=== PATIENT | female | born 1955 | race Caucasian/White ===

== ENCOUNTER → 2018-02-10 15:15 | Outpatient (CLI) | payer OTHER, SELFPAY ==
[2018-02-10 09:38] LABS: Absolute Lymphocyte Count 1.46 X10^3/ul (0.83-4.51); Absolute Neutrophil Count 3.7 X10^3/uL (2.0-7.7); Basophil# 0.01 X10^3/uL; Basophil% 0.2 % (0-1); Eosinophil# 0.08 X10^3/uL; Eosinophils% 1.3 % (0-5); Hematocrit 44.7 % (37-47); Hemoglobin 15.6 g/dl (12.0-15.0); Lymphocyte # 1.46 X10^3/ul (4.0); Lymphocyte % 24.5 % (19-41); Mean Corp Hgb Conc 34.9 g/gl (32-36); Mean Corpuscular Hgb 35.9 pg (27.0-32.0); Mean Corpuscular Volume 102.8 fL (81-99); Monocyte# 0.68 X10^3/uL; Monocyte% 11.4 % (0-10); Neutrophil # 3.72 X10^3/uL (2.7-7.7); Neutrophil % 62.4 % (47-70); Platelet Count 210 K/mm3 (150-450); RBC Distribution Width CV 12.2 % (11.6-14.6); Red Blood Count 4.35 M/mm3 (4.2-5.4)
[2018-02-10 09:41] LABS: POSITIVE COUNT NO; POSITIVE DIFFERENTIAL NO; POSITIVE MORPHOLOGY NO
--- NOTE | 2018-02-10 15:20 | CT_ITS ---
STUDY: CT ABDOMEN AND PELVIS WITH CONTRAST REASON FOR EXAM: Female, 62 years old. Left upper quadrant pain and left flank pain x5 RADIATION DOSAGE (If Supplied By Facility): CTDIvol = ( 14.71 ) mGy, DLP = ( 979.11 ) mGycm TECHNIQUE: Transaxial images were obtained from the dome of the diaphragm to the symphysis pubis without oral contrast. 100 ml of Isovue 300 contrast was administered. Sagittal and coronal images were reconstructed. Individualized dose optimization techniques were used for this CT. COMPARISON: March 11, 2017 FINDINGS: The visualized lung bases are unremarkable. The visualized portions of the heart are within normal limits. Calcific coronary artery disease. Normal liver. Normal gallbladder and extrahepatic biliary system. Multiple calcified granulomas. Normal pancreas. Right adrenal is normal. There is a 2.8 cm left adrenal mass which appears unchanged in size and configuration. It is hypodense centrally. Normal right kidney. Possible nonobstructing nephroliths on the left. Normal visualized stomach. Normal small intestine. Normal colon. The appendix is visualized and appears normal. Normal abdominal aorta except for fusiform ectasia from 1.6 cm to 2.4 in the infrarenal segment.. Normal inferior vena cava. Normal retroperitoneum. Normal urinary bladder. Normal abdominal wall. Normal osseous structures. IMPRESSION: Punctate nonobstructing nephroliths on the left. Borderline infrarenal aortic aneurysmal dilatation by strict definition but less than 3 cm. Recommend follow-up in 3 years. Stable left adrenal mass. Recommend follow-up adrenal CT protocol or MRI nonemergent. Electronically Signed: Danish Dodson MD at 16:25 EDT , Service support , CT/Abdomen/Pelvis WITH Contrast
[2018-02-10 15:36] LABS: CREATININE FINGERSTICK 0.8 mg/dL (0.55-1.02)
== END ==
PROVIDERS: Family Provider Family Medicine; PCP Family Medicine; Visit Provider Family Medicine
DX: R10.9 Unspecified abdominal pain (principal)
CPT/HCPCS: 36415; 74177; 85025; Q9967

== ENCOUNTER → 2018-02-16 08:45 | Outpatient (CLI) | payer OTHER, SELFPAY ==
--- NOTE | 2018-02-16 08:47 | RAD_ITS ---
STUDY: X-RAY - THORACIC SPINE REASON FOR EXAM: Female, 62 years old. Mid and low back pain TECHNIQUE: 4 view(s) of the thoracic spine were obtained. COMPARISON: None. FINDINGS: Normal kyphosis of the thoracic spine. There is no substantial scoliosis. There is multilevel endplate spondylosis of the thoracic vertebrae. There is multilevel disc space narrowing of the thoracic spine. Peripheral calcifications in the thoracic aorta without aneurysm RAD/Thoracic Spine 3 Views IMPRESSION: Multilevel degenerative changes, no acute findings Electronically Signed: Branden Willoughby MD at 9:31 EDT , Service support ,
== END ==
PROVIDERS: Family Provider Family Medicine; PCP Family Medicine; Visit Provider Family Medicine
DX: R10.9 Unspecified abdominal pain (principal)
CPT/HCPCS: 72072

== ENCOUNTER → 2018-03-05 16:55 | Outpatient (CLI) | payer OTHER, SELFPAY ==
--- NOTE | 2018-03-05 16:59 | CT_ITS ---
STUDY: CT ABDOMEN WITHOUT CONTRAST REASON FOR EXAM: Female, 62 years old. Possible thickening of the gastric wall. RADIATION DOSAGE (If Supplied By Facility): CTDIvol = ( 14.82 ) mGy, DLP = ( 457.90 ) mGycm TECHNIQUE: Transaxial images were obtained without intravenous contrast, and with oral contrast. Sagittal and coronal images were reconstructed. Individualized dose optimization techniques were used for this CT. COMPARISON: Comparison is made with prior study dated February 10, 2018. FINDINGS: The visualized lung bases are unremarkable. Coronary artery calcification. Normal liver. Normal gallbladder and extrahepatic biliary system. There are multiple benign calcified granulomata of the spleen. Normal pancreas. There is a small, circumscribed, smooth, low attenuation left adrenal mass, consistent with an adrenal adenoma. This measures 2.8 cm. Normal right adrenal gland. Normal right kidney. Small nonobstructive left intrarenal calculi. Normal visualized stomach. Normal small intestine. Normal colon. The appendix is visualized and appears normal. There is diffuse atherosclerotic calcification of the abdominal aorta. Stable mild dilatation of the infrarenal abdominal aorta with a transverse dimension of 2.4 cm. Normal inferior vena cava. There is borderline retroperitoneal lymphadenopathy with enlarged nodes no greater than 10mm in the short axis diameter. Normal abdominal wall. Normal osseous structures. CT/Abdomen WITH ORAL Cont Only IMPRESSION: No acute abnormality is seen. Electronically Signed: Omega Prather MD at 14:05 EDT Tel [phone], Service support ,
== END ==
PROVIDERS: Family Provider Family Medicine; PCP Family Medicine; Visit Provider Family Medicine
DX: R10.9 Unspecified abdominal pain (principal)
CPT/HCPCS: 74150

== ENCOUNTER → 2018-04-15 12:10 | Outpatient (CLI) | payer OTHER, SELFPAY | PROVIDERS: Family Provider Family Medicine; PCP Family Medicine; Visit Provider Family Medicine | DX: Z12.31 Encounter for screening mammogram for malignant neoplasm of breast (principal) | CPT/HCPCS: 77063; 77067 ==

== ENCOUNTER → 2019-02-10 | Outpatient (CLI) | payer MEDICARE, BC, SELFPAY ==
[2019-02-10 10:03] LABS: Absolute Lymphocyte Count 1.38 X10^3/ul (0.83-4.51); Absolute Neutrophil Count 2.2 X10^3/uL (2.0-7.7); Basophil# 0.01 X10^3/uL; Basophil% 0.2 % (0-1); Eosinophil# 0.09 X10^3/uL; Eosinophils% 2.2 % (0-5); Hematocrit 43.7 % (37-47); Hemoglobin 15.4 g/dl (12.0-15.0); Lymphocyte # 1.38 X10^3/ul (4.0); Lymphocyte % 33.3 % (19-41); Mean Corp Hgb Conc 35.2 g/gl (32-36); Mean Corpuscular Hgb 35.8 pg (27.0-32.0); Mean Corpuscular Volume 101.6 fL (81-99); Mean Platelet Vol. 10.3 fl (6.2-12.0); Monocyte# 0.52 X10^3/uL; Monocyte% 12.5 % (0-10); Neutrophil # 2.15 X10^3/uL (2.7-7.7); Neutrophil % 51.8 % (47-70); POSITIVE COUNT NO; POSITIVE DIFFERENTIAL NO; POSITIVE MORPHOLOGY NO; Platelet Count 203 K/mm3 (150-450); RBC Distribution Width CV 12.1 % (11.6-14.6); RBC Distribution Width SD 44.7 fl (35.1-43.9); White Blood Count 4.2 K/mm3 (4.4-11.0)
[2019-02-10 10:26] LABS: Anion Gap 9 (5-15); BUN 8 mg/dL (7-18); BUN/Creat Ratio 12.3 RATIO (10-20); Calcium,Total 9.1 mg/dL (8.5-10.1); Chloride 97 mmol/L (98-107); Cholesterol 196 mg/dL (200); Creatinine, Serum 0.65 mg/dL (0.55-1.02); EST Glomerular Filtration Rate 97 mL/min (>60); Est Glom Filt Rate - Afr Amer 117 mL/min (>60); Glucose 91 mg/dL (74-106); High Density Lipoprotein 58 mg/dL; Potassium 4.1 mmol/L (3.5-5.1); Sodium Level 135 mmol/L (136-145); Triglycerides 118 mg/dL; Very Low Density Lipoprotein 24 mg/dL (5-40)
== END | disposition home or self-care (01) ==
LOC: MFPLAB 08:26
PROVIDERS: Family Provider Family Medicine; PCP Family Medicine; Referring Provider Family Medicine; Visit Provider Family Medicine
DX: E78.00 Pure hypercholesterolemia, unspecified (principal); I10 Essential (primary) hypertension; J45.909 Unspecified asthma, uncomplicated
CPT/HCPCS: 36415; 80048; 80061; 85025

== ENCOUNTER → 2019-04-19 | Outpatient (CLI) | payer MEDICARE, BC, SELFPAY ==
--- NOTE | 2019-04-19 10:36 | BI_ITS ---
MAMMOGRAPHY - BILATERAL SCREENING 3-D TOMOSYNTHESIS REASON FOR EXAM: Female, 63 years old. Bilateral Screening 3-D tomosynthesis PERTINENT HISTORY: Paternal aunt with breast cancer.. TECHNIQUE: 2-D mammograms and 3-D Tomosynthesis of the breast (s) were performed. CAD was performed. COMPARISON: 04/15/2019, 04/17/2017, 04/15/2016 FINDINGS: The breast composition is composed of scattered fibroglandular density. Scattered benign calcifications are seen. No dense spiculated masses or suspicious microcalcifications are identified. No architectural distortion is identified. There is no skin thickening or retraction. There has been no significant change since the prior study. BI/SCREEN MAMM (CAD) W/MELISSA BILAT IMPRESSION: No mammographic signs of malignancy. Routine yearly mammograms recommended. ASSESSMENT CATEGORY: BIRADS Category 2: Benign. A letter regarding these results will be sent to the patient by the facility within 30 days. FOLLOW UP RECOMMENDATION: Yearly follow up mammogram recommended. (A) Approximately 10% of breast cancers are not detected by mammography. A normal mammogram should not delay biopsy of a clinically suspicious abnormality. Electronically Signed: Fabien Connolly MD at 19:09 EDT Tel [phone], Service support ,
== END | disposition home or self-care (01) ==
LOC: OPBI 10:34
PROVIDERS: Family Provider Family Medicine; PCP Family Medicine; Referring Provider Family Medicine; Visit Provider Family Medicine
DX: Z12.31 Encounter for screening mammogram for malignant neoplasm of breast (principal)
CPT/HCPCS: 77063; 77067

== ENCOUNTER → 2020-02-21 07:18 | Outpatient (CLI) | payer MEDICARE, BC, SELFPAY ==
[2020-02-21 09:43] LABS: Absolute Lymphocyte Count 1.92 X10^3/uL (0.83-4.51); Absolute Neutrophil Count 1.9 X10^3/uL (2.0-7.7); Basophil# 0.03 X10^3/uL; Basophil% 0.7 % (0-1); Eosinophil# 0.08 X10^3/uL; Eosinophils% 1.8 % (0-5); Hematocrit 45.8 % (37-47); Hemoglobin 15.7 g/dL (12.0-15.0); Lymphocyte # 1.92 X10^3/ul (4.0); Lymphocyte % 43.7 % (19-41); Mean Corp Hgb Conc 34.3 g/dL (32-36); Mean Corpuscular Hgb 36.4 pg (27.0-32.0); Mean Corpuscular Volume 106.3 fL (81-99); Mean Platelet Vol. 10.4 fl (6.2-12.0); Monocyte# 0.46 X10^3/uL; Monocyte% 10.5 % (0-10); NRBC Flagged by Analyzer 0 % (0-5); Neutrophil % 43.3 % (47-70); Platelet Count 196 K/mm3 (150-450); RBC Distribution Width CV 12.5 % (11.6-14.6); RBC Distribution Width SD 49.3 fl (35.1-43.9); Red Blood Count 4.31 M/mm3 (4.2-5.4); White Blood Count 4.4 K/mm3 (4.4-11.0)
[2020-02-21 10:12] LABS: ALB/GLOB Ratio 0.9 RATIO (0.9-2.4); AST(SGOT) 60 U/L (15-37); Alanine Aminotransfer ALT/SGPT 44 U/L (13-56); Albumin, Serum 3.6 g/dL (3.2-5.0); Alkaline Phosphatase 114 U/L (45-117); Anion Gap 8 (5-15); BUN 8 mg/dL (7-18); BUN/Creat Ratio 10.2 RATIO (10-20); Calcium,Total 8.8 mg/dL (8.5-10.1); Chloride 97 mmol/L (98-107); Cholesterol 203 mg/dL (200); Creatinine, Serum 0.78 mg/dL (0.55-1.02); EST Glomerular Filtration Rate 78 mL/min (>60); Est Glom Filt Rate - Afr Amer 95 mL/min (>60); Globulin 4.2 g/dL (2.2-4.2); Glucose 94 mg/dL (74-106); High Density Lipoprotein 63 mg/dL; Potassium 3.9 mmol/L (3.5-5.1); Protein, Total 7.8 g/dL (6.4-8.2); Sodium Level 134 mmol/L (136-145); Triglycerides 123 mg/dL; Very Low Density Lipoprotein 25 mg/dL (5-40)
== END ==
PROVIDERS: PCP Family Medicine; Referring Provider Family Medicine; Visit Provider Family Medicine
DX: I10 Essential (primary) hypertension (principal); E78.00 Pure hypercholesterolemia, unspecified
CPT/HCPCS: 36415; 80053; 80061; 85025

== ENCOUNTER 2020-03-04 09:55 | Observation (INO) | payer MEDICARE, BC, SELFPAY ==
[2020-03-04] VITALS (11 sets, daily range): BP systolic 135–205; BP diastolic 64–152; PULSE 50–99; RESP 14–16; TEMP 36.6–37.1; O2SAT 98–100; BMI 26.6; BMI 26.9
--- NOTE | 2020-03-04 10:11 | EKG12_ITS ---
Test Reason : AB PAIN Blood Pressure : / mmHG Vent. Rate : 078 BPM Atrial Rate : 078 BPM P-R Int : 164 ms QRS Dur : 074 ms QT Int : 396 ms P-R-T Axes : 058 019 053 degrees QTc Int : 451 ms Normal sinus rhythm Normal ECG Confirmed by SULY VALENTINE ([id number]), order editor TRESA MAY ([id number]) on 03/06/2020 2:07:07 PM Referred By: RADHA Confirmed By:SULY VALENTINE
--- NOTE | 2020-03-04 10:11 | CT_ITS ---
STUDY: CT ABDOMEN AND PELVIS WITH CONTRAST REASON FOR EXAM: Female, 64 years old. ABD PAIN RADIATION DOSAGE (If Supplied By Facility): CTDIvol = ( 14.70 ) mGy, DLP = ( 831.35 ) mGycm TECHNIQUE: Transaxial images were obtained from the dome of the diaphragm to the symphysis pubis without oral contrast. IV 100mL Isovue-370 was administered. Sagittal and coronal images were reconstructed. Individualized dose optimization techniques were used for this CT. COMPARISON: March 05, 2018 FINDINGS: There is a 0.3 cm left lower lung nodule. The visualized portions of the heart are within normal limits. Normal liver. Normal gallbladder and extrahepatic biliary system. There are multiple benign calcified granulomata of the spleen. Normal pancreas. There is a small, circumscribed, smooth, low attenuation left adrenal mass, consistent with an adrenal adenoma. Normal right adrenal gland. Normal right kidney. There is a 1.3 cm cyst over the left kidney. Normal visualized stomach. Normal small intestine. Normal colon. There is non-visualization of the appendix. There is diffuse atherosclerotic calcification of the abdominal aorta with elongation and tortuosity, but without a demonstrated aneurysm. Normal inferior vena cava. Normal retroperitoneum. Normal urinary bladder. There is absence of the uterus consistent with a prior hysterectomy. There is no free fluid in the abdomen or pelvis. Normal abdominal wall. Mild degenerative change of the lumbar spine. CT/Abdomen/Pelvis W IV Cont ONLY IMPRESSION: No acute abnormality. Postoperative change. No obstruction. Electronically Signed: Lucas Sellers MD at 12:03 EDT , Service support ,
--- NOTE | 2020-03-04 10:15 | ED.VIS.GEN ---
History of Present Illness Chief Complaint: Abd Pain Informant: Patient Narrative: 64-year-old female with past medical history of hypertension presents with concern for abdominal pain. States it began approximately 4 days ago. Describes it as left-sided and radiating around into her back. States it is aching in nature. Intermittent. Does admit to some nausea and vomiting. Bit to some constipation. Denies any diarrhea. Denies any urinary symptoms. Denies any vaginal bleeding or discharge. Patient has a history of complete hysterectomy. Past Medical History - Allergies and Home Meds Allergies/Adverse Reactions: Allergies erythromycin base Allergy (Verified 03/04/20 09:56) PT UNSURE OF REACTION Primary Care Physician: Ernie Molina MD [Primary Care Provider] - Past Medical History: - - HTN Surgical History: hysterectomy Lives: Spouse/ Significant Other Smoking Status: Current every day smoker Alcohol: None Drugs: None Review of Systems General: Denies: Chills, Fever, Sweats Eyes: Denies: Visual changes - bilaterally, Diplopia ENT: Denies: Rhinorrhea, Sore throat Cardiovascular: Denies: Chest pain, Palpitations Respiratory: Denies: Dyspnea, Cough, Dyspnea on exertion Gastrointestinal: Reports: Abdominal pain, Nausea, Vomiting. Denies: Diarrhea, Melena, Hematochezia Genitourinary: Denies: Dysuria, Hematuria, Frequency Musculoskeletal: Denies: Back pain, Extremity Pain Skin: Denies: Rash, Wounds Neurological: Denies: Headache, Weakness, Numbness Physical Exam Vital Signs/Narrative: Vital Signs Temp Pulse Resp BP Pulse Ox 03/04/20 09:57 97.8 F 50 L 16 205/152 H 98 Inital Vital Signs reviewed: Yes General: Well nourished, Well developed, No Acute Distress Head: Normocephalic, Atraumatic Eyes: Perrl, EOMI ENT: Moist mucous membranes, No rhinorrhea Neck: Supple, Nontender Cardiovascular: Regular rate, Regular rhythm, No murmurs Respiratory: No distress, CTA bilaterally, Chest nontender Abdomen: Soft, Nontender, Nondistended, Normal bowel sounds Back: Nontender, Normal Inspection Extremities: Nontender, No edema Skin: Normal color, No rash Neurological: Alert, Oriented x3, Cranial nerves II-XII grossly intact, Normal Strength, Normal Sensation Psychological: Normal affect, Normal Mood Diagnostic/Tx/Re-eval - Rhythm Strip Rhythm Strip: Sinus Rhythm Rate: 78 Ectopy: None - EKG Initial EKG Interpretation: Sinus Rhythm - Sinus rhythm at 78 bpm. DC interval 164 ms. QTC of 451 ms. No evidence of ST elevation or depression at this time. - Medical Decision Making Patient in mild to moderate pain upon arrival described as her left flank and to her left upper abdomen. Blood pressure significantly elevated with a systolic blood pressure well above 200. EKG nonischemic. Troponin negative. Lactate negative. Patient does have a hyponatremia which is likely multifactorial including hypovolemia as well as starting hydrochlorothiazide within the past month. Her blood pressure is reduced after fluid resuscitation as well as pain control with morphine. No evidence of vascular abnormality. Patient does have occult blood in her urine. She states that her mother did have renal cell cancer in her 60s or [address]. CT shows no acute mass but there is evidence of a renal cyst. Patient was due to have ultrasound of her kidneys given her uncontrolled hypertension this week. Spoke with Dr. Correa who is agreeable with admission given her uncontrolled blood pressure as well as for natremia. Patient also agreeable and admitted in stable condition. ED Disposition - Plan for ED Patient: Disposition: [facility] Diagnosis: Hyponatremia, Volume depletion, Uncontrolled hypertension, Hematuria, Abdominal pain Referrals: Ernie Molina MD [Primary Care Provider] -
[2020-03-04 10:29] LABS: Color, Urine Yellow (Yellow); Glucose, Dipstick Normal (Normal); Ketone-Dipstick Negative (Negative); Leukocyte Esterase-Dipstick 25 /ul (Negative); Mucous, Urine 0 SEEN /hpf (<or=2+); Nitrite-Dipstick Negative (Negative); Occult Blood-Urine 50 /ul (Negative); Protein-Dipstick Negative (Negative); Urine Bilirubin Dipstick Negative (Negative); Urine Clarity Clear (Clear); Urine Urobilinogen Normal (Normal)
[2020-03-04] MEDS: 0.9% Normal Saline 1,000 ML 1000 ML IV (10:34)
[2020-03-04] MEDS: Morphine 4 MG/ML Syringe IV (10:34)
[2020-03-04] MEDS: Ondansetron 4 MG/2 ML Vial IV (10:34)
[2020-03-04 10:35] LABS: Bacteria 2+ /hpf (None Seen); Red Blood Cells-Urine 0-5 SEEN /hpf (0-5); Squamous Epithelial Cells - UA 5-10 SEEN /hpf (5-10); White Blood Cells 0-5 SEEN /hpf (0-5)
[2020-03-04 10:51] LABS: Absolute Lymphocyte Count 1.32 X10^3/uL (0.83-4.51); Absolute Neutrophil Count 2.3 X10^3/uL (2.0-7.7); Basophil# 0.01 X10^3/uL; Basophil% 0.2 % (0-1); Eosinophil# 0.03 X10^3/uL; Eosinophils% 0.7 % (0-5); Hematocrit 45.7 % (37-47); Hemoglobin 16.5 g/dL (12.0-15.0); Lymphocyte # 1.32 X10^3/ul (4.0); Lymphocyte % 31.4 % (19-41); Mean Corp Hgb Conc 36.1 g/dL (32-36); Mean Corpuscular Hgb 35.9 pg (27.0-32.0); Mean Corpuscular Volume 99.6 fL (81-99); Mean Platelet Vol. 10.3 fl (6.2-12.0); Monocyte# 0.49 X10^3/uL; Monocyte% 11.7 % (0-10); NRBC Flagged by Analyzer 0 % (0-5); Neutrophil # 2.33 X10^3/uL (2.7-7.7); Neutrophil % 55.5 % (47-70); Platelet Count 217 K/mm3 (150-450); RBC Distribution Width CV 11.3 % (11.6-14.6); RBC Distribution Width SD 41.5 fl (35.1-43.9); Red Blood Count 4.59 M/mm3 (4.2-5.4); White Blood Count 4.2 K/mm3 (4.4-11.0)
[2020-03-04 11:10] LABS: ALB/GLOB Ratio 0.9 RATIO (0.9-2.4); AST(SGOT) 44 U/L (15-37); Alanine Aminotransfer ALT/SGPT 47 U/L (13-56); Albumin, Serum 4.1 g/dL (3.2-5.0); Alkaline Phosphatase 125 U/L (45-117); Anion Gap 7 (5-15); BUN 8 mg/dL (7-18); Calcium,Total 9.4 mg/dL (8.5-10.1); Chloride 86 mmol/L (98-107); Creatinine, Serum 0.88 mg/dL (0.55-1.02); EST Glomerular Filtration Rate 68 mL/min (>60); Est Glom Filt Rate - Afr Amer 82 mL/min (>60); Estimated Creatinine Clearance 56.59 ml/min; Globulin 4.5 g/dL (2.2-4.2); Glucose 127 mg/dL (74-106); Lipase 84 U/L (73-393); Potassium 3.7 mmol/L (3.5-5.1); Protein, Total 8.6 g/dL (6.4-8.2); Sodium Level 121 mmol/L (136-145)
[2020-03-04 11:15] LABS: Lactic Acid 1.6 mmol/L (0.4-1.9)
[2020-03-04] MEDS: Morphine 2 MG/ML Syringe IV (12:10)
--- NOTE | 2020-03-04 13:15 | HP.PCM_ITS ---
Problem List (1) Hypertensive urgency Status: Acute (2) Hypotonic hyponatremia Status: Acute (3) Abdominal pain Status: Acute History of Present Illness Date of Admission: 03/04/20 Chief Complaint: Abdominal pain and hypertension The patient is a 64 year old F with history of hypertension came to ER with abdominal pain and high blood pressure. She has intermittent abdominal pain for about 2 weeks mainly in epigastric and umbilical region with radiation to the back and forth, 6-7/10 intensity. Symptoms become more severe if required ER visit. Patient blood pressure is also high for last 2-week and PCP increased Altace dose from 10 mg to 20 mg 2 weeks ago which led to further increase in blood pressure therefore dose was cut back to 10 mg daily. She is also on HCTZ 25 mg daily. [] In ED, blood pressure 205/152, heart rate 74/min. No tachypnea or hypoxia. No fever. CT abdomen was done which shows no acute abnormality. No bowel obstruction. Patient had total hysterectomy with bilateral salpingo-oophorectomy. Denies GI bleed. No new lower urinary tract symptoms including burning micturition. Patient had vomiting for few days and he states vomits after 1 to 2 hours of last eating food. Patient is also constipated and has not bowel movement for last 4 to 5 days. She also has noted good appetite and not eating well. Past Medical History Allergies erythromycin base Allergy (Verified 03/04/20 09:56) PT UNSURE OF REACTION Home Medications: Ambulatory Orders Medication Instructions Recorded Hydrochlorothiazide [Hctz] 25 mg PO DAILY 03/04/20 Omeprazole [Prilosec] 20 mg PO DAILY 03/04/20 Ramipril 5 mg PO DAILY 03/04/20 Surgical History: hysterectomy Lives: Spouse/ Significant Other Smoking Status: Current every day smoker Tobacco Use: Cigarettes - Half to 1 pack daily since teenage Alcohol: None Drugs: None - *Family History Paternal History Items: - - Father had abdominal aneurysm. Grandfather had thoracic aortic aneurysm Review of Systems Constitutional: Denies: Chills, Fever, Weight Change HEENT: Denies: Head Aches, Sinus Congestion, Sinus Drainage Cardiovascular: Denies: Chest Pain, Palpitations Respiratory: Denies: Cough, Shortness of breath at rest, Sputum production Gastrointestinal: Reports: Abdominal Pain, Constipation, Nausea, Vomiting. Denies: Diarrhea, Hematemesis, Hematochezia, Melena Genitourinary: Denies: Dysuria, Frequency, Hematuria, Nocturia, Retention, Urgency Musculoskeletal: Denies: Joint Pain, Joint Tenderness Skin: Denies: Rash, Wounds Neurological: Denies: Focal weakness, Numbness, Tingling Psychiatric: Denies: Anxiety, Depression, Homicidal Ideations, Suicidal Ideations Hematologic/ Lymphatic: Denies: Easy Bruising, Easy Bleeding VTE Information - Inpt Only VTE Present on Admission: No VTE Mechan Device Prophylaxis: None VTE Pharm Prophylaxis ordered?: Yes Patient Problems: Active and Suspected Problems Hyponatremia (Acute) Volume depletion (Acute) Uncontrolled hypertension (Acute) Hematuria (Acute) Abdominal pain (Acute) Hypertensive urgency (Acute) Hypotonic hyponatremia (Acute) - Physical Exam Vitals/I&O's: Vital Signs Temp Pulse Resp BP Pulse Ox 98.7 F 80 16 162/98 H 98 03/04/20 13:13 03/04/20 13:13 03/04/20 13:13 03/04/20 13:13 03/04/20 13:13 Oxygen Delivery Method Room Air Weight: 160 lb Body Mass Index (BMI) 26.6 Intake and Output for Last 24 Hours 03/02/20 03/03/20 03/04/20 23:59 23:59 23:59 Intake Total 1000 / 1000 Balance 1000 / 1000 General: Alert, Oriented x3, Cooperative HEENT: Atraumatic, PERRLA, EOMI, Normocephalic Oral: No Gingival or Mucosal Lesions/ Ulcerations, Dry Mucosa Neck: Supple, No JVD, Negative Carotid Bruits Lungs: Clear to auscultation, Normal air movement, No rhonchi, No wheeze, No rales Cardiovascular: Regular rate, Regular Rhythm, Normal S1, Normal S2, No murmurs Abdomen: Bowel Sounds Present, Soft, Non Tender, Non-Distended Extremities: Capillary Refill Less than 3 Seconds, Edema - Mild ankle edema Skin: No rashes, No breakdown Musculoskeletal: No Tenderness to Palpation of Joints or Extremities, Arthritic Changes Neurological: Cranial nerves II-XII grossly intact, Deep Tendon Reflexes 2+/4 and Symmetrical, Neuro grossly intact Psych/Mental Status: Normal Affect, Appropriate Laboratory Results 03/04/20 10:18: Urine Color Yellow, Urine Clarity Clear, Urine pH 6.0, Ur Specific [place] 1.020, Urine Protein Negative, Urine Glucose (UA) Normal, Urine Ketones Negative, Urine Occult Blood 50 H, Urine Nitrite Negative, Urine Bilirubin Negative, Urine Urobilinogen Normal, Ur Leukocyte Esterase 25 H, Urine RBC 0-5 SEEN, Urine WBC 0-5 SEEN, Ur Squamous Epith Cells 5-10 SEEN, Urine Bacteria 2+, Urine Mucus 0 SEEN 03/04/20 10:40: WBC 4.2 L, RBC 4.59, Hgb 16.5 H, Hct 45.7, MCV 99.6 H, MCH 35.9 H, MCHC 36.1 H, RDW Std Deviation 41.5, RDW Coeff of Charley 11.3 L, Plt Count 217, MPV 10.3, Immature Gran % (Auto) 0.500, Neut % (Auto) 55.5, Lymph % (Auto) 31.4, [place] % (Auto) 11.7 H, Eos % (Auto) 0.7, Baso % (Auto) 0.2, Absolute Neuts (auto) 2.3, Absolute Lymphs (auto) 1.32, Nucleated RBC % 0 03/04/20 10:40: Sodium 121 L, Potassium 3.7, Chloride 86 L, Carbon Dioxide 28.0, Anion Gap 7, BUN 8, Creatinine 0.88, Estim Creat Clear Calc 56.59, Est GFR (MDRD) Af Amer 82, Est GFR (MDRD) Non-Af 68, BUN/Creatinine Ratio 9.0 L, Glucose 127 H, Calcium 9.4, Total Bilirubin 0.60, AST 44 H, ALT 47, Alkaline Phosphatase 125 H, Troponin I < 0.015, Total Protein 8.6 H, Albumin 4.1, Globulin 4.5 H, Albumin/Globulin Ratio 0.9, Lipase 84 03/04/20 10:45: Lactic Acid 1.6 Assessment/Plan All Active Problems Hyponatremia (Acute) Volume depletion (Acute) Uncontrolled hypertension (Acute) Hematuria (Acute) Abdominal pain (Acute) Hypertensive urgency (Acute) Hypotonic hyponatremia (Acute) The patient is a 64 year old F with history of hypertension came to ER with abdominal pain and high blood pressure in the range of hypertensive urgency. Mild nausea and vomiting. CT abdomen by and large normal. 1. Hypertensive urgency: Currently patient does not have chest pain, headache, blurry vision. Patient is given labetalol 20 mg IV in ER. Started on amlodipine 5 mg daily, Coreg 6.25 mg twice daily, hydralazine 25 mg. Altace 10 mg continued. IV labetalol 10 mg and hydralazine 10 mg IV q. 4 hourly as needed for hypertensive urgency. Hold HCTZ as patient is dehydrated. She might have renal artery stenosis as blood pressure went up after increasing the dose of Altace. She has a scheduled renal ultrasound with Doppler by PCP as an outpatient. 2D echo, TSH and fasting profile ordered. 2. Intermittent abdominal pain, nonspecific, possible gastritis: CT abdomen with IV contrast did not show abdominal aortic aneurysm but diffuse atherosclerotic calcification of abdominal aorta with elongation and tortuosity. Normal retroperitoneum and IVC. Normal small bowel and colon and stomach. Total hysterectomy plus BSO. IV Protonix 40 mg 1 dose. UA negative for pyuria, LE 25. Nitrite negative. Denies new lower tract symptoms including dysuria. 3. Hypotonic hypovolemic hyponatremia: Sodium is 121, urine is dark yellow. On IV fluid normal saline 100 mils per hour. Patient had 1 L normal saline bolus in ED. Monitor electrolytes. K3.7, K. Dur 40 M EQ 1 dose ordered. Mild hemoconcentration, hemoglobin 16.5. 4. DVT prophylaxis: Lovenox 40 mg subcu daily. Clinical Impression(s) from Imaging Studies Abdomen/Pelvis CT 03/04/20 10:11 IMPRESSION: No acute abnormality. Postoperative change. No obstruction. Inpatient E&M: 87746 Init Hosp L3
--- NOTE | 2020-03-04 14:05 | RAD_ITS ---
STUDY: X-RAY CHEST REASON FOR EXAM: Female, 64 years old. HYPERTENSION TECHNIQUE: Frontal view of the chest COMPARISON: None. FINDINGS: The lungs are clear and expanded. There is no demonstrated pleural abnormality. Normal size heart. Normal mediastinum and jace. Normal visualized pulmonary arteries. Normal visualized aortic arch and descending thoracic aorta. Normal visualized thoracic spine. Normal visualized ribs, clavicles, and shoulders. There is no demonstrated abnormality of the visualized soft tissue structures of the upper abdomen. RAD/Chest 1 View (Portable) IMPRESSION: Normal x-ray examination of the chest. Electronically Signed: Slim Pinto, at 15:20 EDT Tel , Service support ,
[2020-03-04] MEDS: 0.9% Normal Saline 1,000 ML 100 ML IV (14:38)
[2020-03-04] MEDS: Enoxaparin 40 MG/0.4 ML Syringe SC (14:44)
[2020-03-04] MEDS: proCHLORPERazine 10 MG/2 ML Vial 5 MG IV (15:16)
--- NOTE | 2020-03-04 15:22 | NURSING ---
C/O Nausea, compazine 5mg IVP given.
[2020-03-04 15:44] LABS: Magnesium 1.7 mg/dL (1.6-2.6)
[2020-03-04] MEDS: hydrALAZINE 25 MG Tablet PO (21:44)
[2020-03-04] MEDS: Carvedilol 6.25 MG Tablet PO (21:44)
[2020-03-04] MEDS: Senna/Docusate Sodium 1 Tablet 2 TABLET PO (21:44)
[2020-03-05] VITALS (8 sets, daily range): BP systolic 143–162; BP diastolic 81–89; PULSE 62–70; RESP 14–16; TEMP 36.5–36.9; O2SAT 97–98
[2020-03-05] MEDS: oxyCODONE 5 MG Tablet PO ×2 (04:25→12:06)
[2020-03-05 05:54] LABS: Absolute Lymphocyte Count 1.52 X10^3/uL (0.83-4.51); Absolute Neutrophil Count 1.9 X10^3/uL (2.0-7.7); Basophil# 0.02 X10^3/uL; Basophil% 0.5 % (0-1); Eosinophil# 0.08 X10^3/uL; Hematocrit 39.6 % (37-47); Hemoglobin 14.2 g/dL (12.0-15.0); Lymphocyte # 1.52 X10^3/ul (4.0); Lymphocyte % 37.6 % (19-41); Mean Corp Hgb Conc 35.9 g/dL (32-36); Mean Corpuscular Hgb 36.3 pg (27.0-32.0); Mean Corpuscular Volume 101.3 fL (81-99); Mean Platelet Vol. 10.4 fl (6.2-12.0); Monocyte# 0.53 X10^3/uL; Monocyte% 13.1 % (0-10); NRBC Flagged by Analyzer 0 % (0-5); Neutrophil # 1.87 X10^3/uL (2.7-7.7); Neutrophil % 46.3 % (47-70); Platelet Count 208 K/mm3 (150-450); RBC Distribution Width CV 11.4 % (11.6-14.6); RBC Distribution Width SD 42.1 fl (35.1-43.9); Red Blood Count 3.91 M/mm3 (4.2-5.4)
[2020-03-05 06:35] LABS: Anion Gap 5 (5-15); BUN 6 mg/dL (7-18); BUN/Creat Ratio 8.9 RATIO (10-20); Calcium,Total 8.6 mg/dL (8.5-10.1); Chloride 98 mmol/L (98-107); Cholesterol 202 mg/dL (200); Creatinine, Serum 0.68 mg/dL (0.55-1.02); EST Glomerular Filtration Rate 93 mL/min (>60); Est Glom Filt Rate - Afr Amer 112 mL/min (>60); Glucose 94 mg/dL (74-106); High Density Lipoprotein 56 mg/dL; Potassium 3.8 mmol/L (3.5-5.1); Sodium Level 131 mmol/L (136-145); Triglycerides 95 mg/dL; Very Low Density Lipoprotein 19 mg/dL (5-40)
[2020-03-05] MEDS: Carvedilol 6.25 MG Tablet PO (09:08)
[2020-03-05] MEDS: Psyllium 1 PACKET PO (09:08)
[2020-03-05] MEDS: hydroCHLOROthiazide 25 MG Tablet PO (09:08)
[2020-03-05] MEDS: Ramipril 5 MG Capsule PO (09:08)
[2020-03-05] MEDS: Senna/Docusate Sodium 1 Tablet 2 TABLET PO (09:08)
[2020-03-05] MEDS: Pantoprazole Sodium 40 MG Tablet PO (09:09)
[2020-03-05] MEDS: amLODIPine 5 MG Tablet PO (09:09)
--- NOTE | 2020-03-05 11:38 | DCINST_ITS ---
- Discharge Diagnoses Current Active Problems: Current Active and Chronic Problems Hyponatremia (Acute) Volume depletion (Acute) Uncontrolled hypertension (Acute) Hematuria (Acute) Abdominal pain (Acute) Hypertensive urgency (Acute) Hypotonic hyponatremia (Acute) You will use the following diet at home:: Cardiac Your food should be the consistency of: Regular Discharge Activity: Return to Normal Activity Call your doctor if you observe: Fever of 101 or Higher, Numbness or Tingling, Change in Color, Inability to urinate, Inability to have a bowel movement, Dizziness, Fainting spells, Swelling in the ankles, Chest pain, Prolonged hiccoughing, Increased palpitations (irregular heartbeat), Calf discomfort, Uncontrolled pain Additional Instructions: Advised 2D echo as an outpatient next week. Patient is already scheduled for kidney ultrasound with renal artery Doppler by PCP. Allergies/Adverse Reactions: Allergies erythromycin base Allergy (Verified 03/04/20 09:56) PT UNSURE OF REACTION Medications to take at Discharge Hydrochlorothiazide [Hctz] 25 mg PO DAILY 03/04/20 Omeprazole [Prilosec] 20 mg PO DAILY 03/04/20 Ramipril 5 mg PO DAILY 03/04/20 Atorvastatin Calcium 40 mg PO QHS #30 tab 03/05/20 Carvedilol [Coreg] 12.5 mg PO BID #60 tab 03/05/20 Psyllium [Metamucil] 1 packet PO DAILY packet 03/05/20 The following prescriptions were given: Atorvastatin Calcium 40 mg PO QHS #30 tab Transmission Status: Pending to [facility]/pharmacy #[id number] Carvedilol [Coreg] 12.5 mg PO BID #60 tab Transmission Status: Sent to [facility]/pharmacy #[id number] Primary Care Physician: Ernie Molina MD [Primary Care Provider] - Please follow up with your Primary Care Physician in: in 1-2 weeks Test Results: Test results from this visit will be discussed in further detail at your follow- up appointment, if applicable.
--- NOTE | 2020-03-05 11:40 | PCM.DC.SUM ---
Discharge Date and Diagnosis Date of Admission: 03/04/20 Date of Discharge: 03/05/20 - Primary Discharge Diagnosis Acute Problems: Active Problems Hyponatremia (Acute) Volume depletion (Acute) Uncontrolled hypertension (Acute) Hematuria (Acute) Abdominal pain (Acute) Hypertensive urgency (Acute) Hypotonic hyponatremia (Acute) Hospital Course and Treatment Summary of Care Provided: [] The patient is a 64 year old F with history of hypertension came to ER with abdominal pain and high blood pressure in the range of hypertensive urgency. Mild nausea and vomiting. CT abdomen by and large normal. 1. Hypertensive urgency: Currently patient does not have chest pain, headache, blurry vision. Patient is given labetalol 20 mg IV in ER. Started on amlodipine 5 mg daily, Coreg 6.25 mg twice daily, hydralazine 25 mg. Altace 10 mg continued. IV labetalol 10 mg and hydralazine 10 mg IV q. 4 hourly as needed for hypertensive urgency. Hold HCTZ as patient is dehydrated. She might have renal artery stenosis as blood pressure went up after increasing the dose of Altace. She has a scheduled renal ultrasound with Doppler by PCP as an outpatient. Patient was advised 2D echo next week as an outpatient. TSH normal 3.0. Fasting profile shows total cholesterol 202, LDL 127. Patient agreed to take high intensity statin, atorvastatin [address] abdomen shows atherosclerotic calcification of abdominal aorta. Her questions and concerns regarding statin for myalgia, liver dysfunction, myopathy were answered and advised follow-up PCP. 2. Intermittent abdominal pain, nonspecific, possible gastritis: CT abdomen with IV contrast did not show abdominal aortic aneurysm but diffuse atherosclerotic calcification of abdominal aorta with elongation and tortuosity. No UTI. Most probably from constipation. Resolved yesterday after bowel movement. 3. Hypotonic hypovolemic hyponatremia: Sodium is 121, urine is dark yellow. On IV fluid normal saline 100 mils per hour. Patient had 1 L normal saline bolus in ED. Monitor electrolytes. K3.7, K. Dur 40 M EQ 1 dose ordered. Mild hemoconcentration, hemoglobin 16.5. Repeat sodium improved to 131. Most probably from HCTZ. 4. DVT prophylaxis: Lovenox 40 mg subcu daily. Discharge medication reconciliation done. Discharge follow-up instructions completed. Discharge process discussed with the patient and all questions were answered to patient's satisfaction. Total time spent, exact 35 minutes on discharge meds reconciliation, examination, coordination of care with nurses and ancillary staff, review of imaging and blood test and discussion with the patient on follow-up instructions Clinical Impression(s) from Imaging Studies Abdomen/Pelvis CT 03/04/20 10:11 IMPRESSION: No acute abnormality. Postoperative change. No obstruction Objective: Patient abdominal pain is resolved. Seems mainly from the constipation. Abdomen resolved after bowel movement. Blood pressure is controlled. It was systolic 130s yesterday and currently in 150s. On physical exam General: Alert, Oriented x3, Cooperative HEENT: Atraumatic, PERRLA, EOMI, Normocephalic Oral: No Gingival or Mucosal Lesions/ Ulcerations, Dry Mucosa Neck: Supple, No JVD, Negative Carotid Bruits Lungs: Clear to auscultation, Normal air movement, No rhonchi, No wheeze, No rales Cardiovascular: Regular rate, Regular Rhythm, Normal S1, Normal S2, No murmurs Abdomen: Bowel Sounds Present, Soft, Non Tender, Non-Distended Extremities: Capillary Refill Less than 3 Seconds, Edema - Mild ankle edema Skin: No rashes, No breakdown Musculoskeletal: No Tenderness to Palpation of Joints or Extremities, Arthritic Changes Neurological: Cranial nerves II-XII grossly intact, Deep Tendon Reflexes 2+/4 and Symmetrical, Neuro grossly intact Psych/Mental Status: Normal Affect, Appropriate - Physical Exam Vitals/I&O's: Vital Signs Temp Pulse Resp BP Pulse Ox 97.7 F L 65 16 162/81 H 97 03/05/20 09:00 03/05/20 11:16 03/05/20 09:00 03/05/20 09:00 03/05/20 09:00 Oxygen Delivery Method Room Air Weight: 163 lb 9.328 oz Body Mass Index (BMI) 26.9 Intake and Output for Last 24 Hours 03/03/20 03/04/20 03/05/20 23:59 23:59 23:59 Intake Total 2069 1100 / 1100 Balance 2069 1100 / 1100 Laboratory Results 03/04/20 14:10: Magnesium 1.7, Troponin I < 0.015 03/05/20 05:24: WBC 4.0 L, RBC 3.91 L, Hgb 14.2, Hct 39.6, MCV 101.3 H, MCH 36.3 H, MCHC 35.9, RDW Std Deviation 42.1, RDW Coeff of Charley 11.4 L, Plt Count 208, MPV 10.4, Immature Gran % (Auto) 0.500, Neut % (Auto) 46.3 L, Lymph % (Auto) 37.6, [place] % (Auto) 13.1 H, Eos % (Auto) 2.0, Baso % (Auto) 0.5, Absolute Neuts (auto) 1.9 L, Absolute Lymphs (auto) 1.52, Nucleated RBC % 0 03/05/20 05:24: Sodium 131 L, Potassium 3.8, Chloride 98, Carbon Dioxide 28.0, Anion Gap 5, BUN 6 L, Creatinine 0.68, Estim Creat Clear Calc 49.80, Est GFR (MDRD) Af Amer 112, Est GFR (MDRD) Non-Af 93, BUN/Creatinine Ratio 8.9 L, Glucose 94, Calcium 8.6, Triglycerides 95, Cholesterol 202 H, LDL Cholesterol 127, VLDL Cholesterol 19, HDL Cholesterol 56, TSH 3.00 Current Medications Acetaminophen (Tylenol) 650 mg PO Q6H PRN PRN PRN Reason: Pain Score 1-10/Temp > 100.7 F Al Hydroxide/Mg Hydroxide (Mylanta Ii) 30 ml PO Q6H PRN PRN PRN Reason: Gastric Burning Albuterol Sulfate (Ventolin Aerosols) 2.5 mg INHALATION Q2H PRN PRN PRN Reason: SOB/Wheezing Amlodipine Besylate (Norvasc) 5 mg PO DAILY [facility] Last Admin: 03/05/20 09:09 Dose: 5 mg Documented by: Carvedilol (Coreg) 6.25 mg PO BID [facility] Last Admin: 03/05/20 09:08 Dose: 6.25 mg Documented by: Dextrose (D50w Syringe) 0 gm IV X1 PRN; Protocol PRN Reason: Hypoglycemia Enoxaparin Sodium (Lovenox) 40 mg SC DAILY [facility] Last Admin: 03/05/20 09:08 Dose: Not Given Documented by: Glucagon () 1 mg IM .X1 PRN PRN Reason: Hypoglycemia Hydralazine HCl (Apresoline Iv) 10 mg IV Q4H PRN PRN PRN Reason: SBP more than 180 mmHg Hydralazine HCl (Apresoline) 25 mg PO TID [facility] Last Admin: 03/05/20 06:52 Dose: Not Given Documented by: Hydrochlorothiazide (Hctz) 25 mg PO DAILY [facility] Last Admin: 03/05/20 09:08 Dose: 25 mg Documented by: Labetalol HCl (Trandate) 10 mg IV Q4H PRN PRN PRN Reason: SBP>190, DBP>110 Morphine Sulfate () 2 mg IV Q3H PRN PRN PRN Reason: Pain Score 6-10/10 Nitroglycerin (Nitrostat) 0.4 mg SUBLINGUAL Q5M PRN PRN Reason: CARDIAC/CHEST PAIN Oxycodone HCl (Oxyir) 5 mg PO Q4H PRN PRN PRN Reason: Pain Score 4-5/10 Last Admin: 03/05/20 04:25 Dose: 5 mg Documented by: Pantoprazole Sodium (Protonix) 40 mg PO DAILY [facility] Last Admin: 03/05/20 09:09 Dose: 40 mg Documented by: Prochlorperazine Edisylate (Compazine Iv) 5 mg IV Q4H PRN PRN PRN Reason: Breakthrough Nausea/Vomiting Last Admin: 03/04/20 15:16 Dose: 5 mg Documented by: Psyllium Hydrophilic Mucilloid (Metamucil) 1 packet PO DAILY [facility] Last Admin: 03/05/20 09:08 Dose: 1 packet Documented by: Ramipril (Altace) 5 mg PO DAILY [facility] Last Admin: 03/05/20 09:08 Dose: 5 mg Documented by: Senna/Docusate Sodium (Senokot-S, Breonna-Colace) 2 tablet PO BID [facility] Last Admin: 03/05/20 09:08 Dose: 2 tablet Documented by: Sodium Chloride () 10 - 40 ml IV UD PRN PRN Reason: SALINE FLUSH Discharge Activity: Return to Normal Activity Call your doctor if you observe: Fever of 101 or Higher, Numbness or Tingling, Change in Color, Inability to urinate, Inability to have a bowel movement, Dizziness, Fainting spells, Swelling in the ankles, Chest pain, Prolonged hiccoughing, Increased palpitations (irregular heartbeat), Calf discomfort, Uncontrolled pain Home Medications: Medications to take at Discharge Hydrochlorothiazide [Hctz] 25 mg PO DAILY 03/04/20 Omeprazole [Prilosec] 20 mg PO DAILY 03/04/20 Ramipril 5 mg PO DAILY 03/04/20 Atorvastatin Calcium 40 mg PO QHS #30 tab 03/05/20 Carvedilol [Coreg] 12.5 mg PO BID #60 tab 03/05/20 Psyllium [Metamucil] 1 packet PO DAILY packet 03/05/20 Following Prescrptions Were Given to Patient: Atorvastatin Calcium 40 mg PO QHS #30 tab Transmission Status: Received by [id number] Carvedilol [Coreg] 12.5 mg PO BID #60 tab Transmission Status: Received by [id number] Primary Care Physician: Ernie Molina MD [Primary Care Provider] - Please follow up with your Primary Care Physician in: in 1-2 weeks Medical Necessity - Tobacco Use Smoking Status: Current every day smoker Tobacco Use: Cigarettes Meaningful Use Info Meaningful Use Diagnoses (Choose all that apply): None applicable OBSV E&M: 41126 Observation care discharge
== END 2020-03-05 11:40 | disposition home or self-care (01) ==
LOC: ED 12:49 → PCU 14:36
PROVIDERS: Admitting Provider Internal Medicine; Emergency Provider Emergency Medicine; PCP Family Medicine; Visit Provider Internal Medicine
DX: E87.1 Hypo-osmolality and hyponatremia (principal); I16.0 Hypertensive urgency; I10 Essential (primary) hypertension; Z79.899 Other long term (current) drug therapy; R11.2 Nausea with vomiting, unspecified; K59.00 Constipation, unspecified; F17.210 Nicotine dependence, cigarettes, uncomplicated; R31.9 Hematuria, unspecified; E86.0 Dehydration
CPT/HCPCS: 36415; 71045; 74177; 80048; 80053; 80061; 81001; 83605; 83690; 83735; 84443; 84484; 85025; 87086; 87088; 93005; 96361; 96365; 96372; 96375; 96376; 99218; 99251; 99283; J7030; Q9967; A4216; G0378; G0463; J2405

== ENCOUNTER 2020-03-06 17:39 | Emergency (ER) | payer MEDICARE, BC, SELFPAY ==
[2020-03-04 13:59] VITALS: BMI 26.9
[2020-03-06 17:41] VITALS: BP 140/57; PULSE 69; RESP 18; TEMP 36.9; O2SAT 97; BMI 26.6
--- NOTE | 2020-03-06 18:21 | ED.VIS.GEN ---
History of Present Illness Chief Complaint: Abn Labs Informant: Patient Onset: Today Context: Sudden Onset Timing: Continuous Quality: Hyponatremia, sodium 123 Location: Not applicable Current Severity: Moderate Maximum Severity: Moderate Worsened by: Patient is on hydrochlorothiazide Relieved by: Nothing Associated Symptoms: No symptoms Narrative: Patient is a 54-year-old woman who was admitted this weekend. Sodium on March 04 was 121. Sodium on March 05 was 131. Sodium today was 123. Chloride is low as well. Patient is on a thiazide diuretic. She was not fluid restricted when she was in the hospital. TSH was obtained as an outpatient and negative. Urine osmolarity is 322. She is not concentrated suggest hypo-natremia due to SIADH. Urine sodium is nondiagnostic since she is on a thiazide diuretic. BMP was drawn to assess accuracy of blood work. Patient denies orthostatic hypotension. Patient denies hyperpigmentation. Prior similar symptoms: Yes Recent Illness/Hospitalization: Yes - Past Medical History (1) Hyponatremia Status: Acute (2) Uncontrolled hypertension Status: Acute Past Medical History - Allergies and Home Meds Allergies/Adverse Reactions: Allergies erythromycin base Allergy (Verified 03/06/20 17:41) PT UNSURE OF REACTION Primary Care Physician: Ernie Molina MD [Primary Care Provider] - Prior records reviewed: Yes Surgical History: hysterectomy Lives: Alone Smoking Status: Current every day smoker Alcohol: None Drugs: None - Family History Paternal Family History: Reports: - - Father had abdominal aneurysm. Grandfather had thoracic aortic aneurysm Review of Systems General: Denies: Chills, Fever, Malaise Eyes: Denies: Visual changes - bilaterally, Blurred Vision - bilaterally ENT: Denies: Rhinorrhea, Sore throat Cardiovascular: Denies: Chest pain, Palpitations Respiratory: Denies: Dyspnea, Cough, Dyspnea on exertion Gastrointestinal: Reports: Nausea. Denies: Abdominal pain, Vomiting, Diarrhea, Constipation, Melena, Hematochezia, -, - Musculoskeletal: Denies: Myalgias, Arthralgias Skin: Denies: Rash, Wounds Neurological: Denies: Weakness, Parasthesia, Numbness Endocrine: Denies: Polyuria, Polydipsia, Cold intolerance Hematologic: Denies: Easy bruising, Easy bleeding Physical Exam Vital Signs/Narrative: Vital Signs Temp Pulse Resp BP Pulse Ox 03/06/20 17:41 98.5 F 69 18 140/57 H 97 Inital Vital Signs reviewed: Yes General: Well nourished, Well developed, No Acute Distress Head: Normocephalic, Atraumatic Eyes: Perrl, EOMI ENT: Moist mucous membranes, No rhinorrhea Neck: Supple, Nontender Cardiovascular: Regular rate, Regular rhythm, No murmurs, Normal S1, Normal S2 Respiratory: No distress, CTA bilaterally, Chest nontender Abdomen: Soft, Nontender, Nondistended, Normal bowel sounds Back: Nontender, Normal Inspection Extremities: Nontender, No edema Skin: Normal color, No rash Neurological: Alert, Oriented x3, Cranial nerves II-XII grossly intact, Normal Strength, Normal Sensation Psychological: Normal affect, Normal Mood Diagnostic/Tx/Re-eval Laboratory Results 03/06/20 18:15 Sodium 125 L Potassium 3.9 Chloride 90 L Carbon Dioxide 28.0 Anion Gap 7 BUN 10 Creatinine 0.77 Estim Creat Clear Calc 49.80 Est GFR (MDRD) Af Amer 97 Est GFR (MDRD) Non-Af 80 BUN/Creatinine Ratio 13.1 Glucose 105 Calcium 8.9 Patient with hyponatremia and hyperchloremia due to thiazide diuretic. Patient was instructed discontinue the thiazide diuretic. There is no concern for SIADH. - Medical Decision Making Patient has a sodium of 123 and chloride of 86. She is on a thiazide diuretic and most likely the etiology of her hyponatremia and hypochloremia. BMP was assessed. If she does have a low sodium and the fact that she is asymptomatic we will discontinue the hydrochlorothiazide. ED Disposition - Plan for ED Patient: Disposition: Home or Assisted Living Diagnosis: Hyponatremia Instructions: ED Hyponatremia Referrals: Ernie Molina MD [Primary Care Provider] - 3-5 Days Additional Instructions: Discontinue hydrochlorothiazide. Follow-up with your doctor for blood pressure recheck and addition of a different medication.
[2020-03-06 18:36] LABS: Anion Gap 7 (5-15); BUN 10 mg/dL (7-18); BUN/Creat Ratio 13.1 RATIO (10-20); Calcium,Total 8.9 mg/dL (8.5-10.1); Chloride 90 mmol/L (98-107); Creatinine, Serum 0.77 mg/dL (0.55-1.02); EST Glomerular Filtration Rate 80 mL/min (>60); Est Glom Filt Rate - Afr Amer 97 mL/min (>60); Glucose 105 mg/dL (74-106); Potassium 3.9 mmol/L (3.5-5.1); Sodium Level 125 mmol/L (136-145)
== END 2020-03-06 19:13 | disposition home or self-care (01) ==
PROVIDERS: Emergency Provider Emergency Medicine; PCP Family Medicine
DX: E87.1 Hypo-osmolality and hyponatremia (principal); T50.2X5A Adverse effect of carbonic-anhydrase inhibitors, benzothiadiazides and other diuretics, initial encounter; I10 Essential (primary) hypertension; F17.200 Nicotine dependence, unspecified, uncomplicated
CPT/HCPCS: 80048

== ENCOUNTER → 2020-03-06 | Outpatient (CLI) | payer MEDICARE, BC, SELFPAY ==
[2020-03-04 13:59] VITALS: BMI 26.9
[2020-03-06 16:06] LABS: Urine Sodium 71 mmol/L (Not Establ.)
[2020-03-06 16:38] LABS: Anion Gap 9 (5-15); BUN 7 mg/dL (7-18); BUN/Creat Ratio 9.8 RATIO (10-20); Calcium,Total 9.3 mg/dL (8.5-10.1); Chloride 84 mmol/L (98-107); Creatinine, Serum 0.72 mg/dL (0.55-1.02); EST Glomerular Filtration Rate 87 mL/min (>60); Est Glom Filt Rate - Afr Amer 105 mL/min (>60); Glucose 90 mg/dL (74-106); Potassium 3.8 mmol/L (3.5-5.1); Sodium Level 123 mmol/L (136-145); Thyroid Stim Hormone (TSH) 1.18 uIU/mL (0.358-3.74)
[2020-03-06 16:40] LABS: Osmolality, Urine 322 mOsm/KG
[2020-03-06 17:34] LABS: Osmolality, Serum 258 mOsm/KG (280-301)
== END | disposition home or self-care (01) ==
LOC: MFPLAB 11:42
PROVIDERS: PCP Family Medicine; Visit Provider Family Medicine
DX: E87.1 Hypo-osmolality and hyponatremia (principal); T50.2X5A Adverse effect of carbonic-anhydrase inhibitors, benzothiadiazides and other diuretics, initial encounter; I10 Essential (primary) hypertension; F17.200 Nicotine dependence, unspecified, uncomplicated
CPT/HCPCS: 36415; 80048; 83930; 83935; 84300; 84443; 99283

== ENCOUNTER → 2020-03-09 | Outpatient (CLI) | payer MEDICARE, BC, SELFPAY ==
[2020-03-06 17:41] VITALS: BMI 26.6
--- NOTE | 2020-03-09 08:52 | RDU_ITS ---
Reason For Study: Benign essential hypertension Right Renal Artery Left Renal Artery Right renal artery ostium Left renal artery ostium 132.6/36.8 124.9/34.2 RSV/EDV. PSV/EDV. Right renal artery proximal Left renal artery proximal PSV/EDV 99.0/23.8 PSV/EDV. 119.7/44.6 . Right renal artery mid 109.3/31.6 Left renal artery mid 122.3/42.0 PSV/EDV. PSV/EDV . Right renal artery distal Left renal artery distal 172.9/50.5 150.7/47.1 PSV/EDV. PSV/EDV. Right Renal Parenchyma Left Renal Parenchyma Upper Pole Medula 34.9/13.9 Left upper pole medulla 43.0/18.4 PSV/EDV. PSV/EDV . Right upper pole medulla EDR ..4 . Left upper pole medulla EDR .43 . Right upper pole medulla R.I. .6 . Left upper pole medulla R.I. .57 . Upper Laith Cortx 31.2/10.2 PSV/EDV. UP Cortex 23.3/6.8 PSV/EDV. Right upper pole cortex EDR .33 . Left upper pole cortex EDR .29 . Right upper pole cortex R.I. .67 . Left upper pole cortex R.I. .71 . Right lower Pole medulla 43.1/11.1 Left lower Pole medulla 52.9/15.6 PSV/EDV . PSV/EDV . Right lower pole medulla EDR .26 . Left lower pole medulla EDR .29 . Right lower pole medulla R.I. .74 . Left lower pole medulla R.I. .71 . Lower Pole Cortex 25.8/8.4 PSV/EDV. Lower Pole Cortx 24.4/10.1 PSV/EDV. Right lower pole cortex EDR .33 . Left lower pole cortex EDR .41 . Right lower pole cortex R.I. .67 . Left lower pole cortex R.I. .59 . Right Renal Hilar Left Renal Hilar Right Hilar avg 78.0/22.3 PSV/EDV. LT Hilar avg 94.1/23.0 PSV/EDV . Right hilar acceleration time 70.0 Left hilar acceleration time 60.0 m/sec. m/sec. Right Renal Dimensions Left Renal Dimensions Right kidney size 10.36 cm . Left kidney size 10.7 cm . Right cortical dimension 1.44 cm . Left cortical dimension 1.3 cm . Aorta Proximal abdominal aorta 1.1 x 1.26 cm . Proximal abdominal aorta peak systolic velocity is 130.1 cm/sec . Distal abdominal aorta 2.15 x 2.09 cm . Distal abdominal aorta peak systolic velocity is 80.8 cm/sec . Normal Renal Veins bilat. Interpretation Summary Dimensions of the intra-abdominal aorta appear normal, without evidence of aneurysmal dilatation. Renal artery velocities are bilaterally normal. Acceleration times are normal bilaterally. There is no evidence of hemodynamically significant renal artery stenosis on either side. Cortical dimensions are bilaterally normal. Kidneys appear normal in size bilaterally. Ordering Physician: Ernie Molina Performed By: Oziel Murillo RVT
== END | disposition home or self-care (01) ==
LOC: CVS 08:49
PROVIDERS: PCP Family Medicine; Referring Provider Family Medicine; Visit Provider Family Medicine
DX: I10 Essential (primary) hypertension (principal)
CPT/HCPCS: 93975

== ENCOUNTER → 2020-03-10 | Outpatient (CLI) | payer MEDICARE, BC, SELFPAY ==
[2020-03-06 17:41] VITALS: BMI 26.6
[2020-03-10 13:03] LABS: Anion Gap 5 (5-15); BUN 9 mg/dL (7-18); Calcium,Total 8.8 mg/dL (8.5-10.1); Chloride 94 mmol/L (98-107); Creatinine, Serum 0.75 mg/dL (0.55-1.02); EST Glomerular Filtration Rate 82 mL/min (>60); Est Glom Filt Rate - Afr Amer 100 mL/min (>60); Glucose 104 mg/dL (74-106); Sodium Level 127 mmol/L (136-145)
== END | disposition home or self-care (01) ==
LOC: MFPLAB 10:47
PROVIDERS: PCP Family Medicine; Referring Provider Family Medicine; Visit Provider Family Medicine
DX: E87.1 Hypo-osmolality and hyponatremia (principal)
CPT/HCPCS: 36415; 80048

== ENCOUNTER → 2020-03-20 | Outpatient (CLI) | payer MEDICARE, BC, SELFPAY ==
[2020-03-06 17:41] VITALS: BMI 26.6
[2020-03-20 10:46] LABS: Anion Gap 3 (5-15); BUN 8 mg/dL (7-18); BUN/Creat Ratio 10.8 RATIO (10-20); Calcium,Total 8.8 mg/dL (8.5-10.1); Chloride 100 mmol/L (98-107); Creatinine, Serum 0.74 mg/dL (0.55-1.02); EST Glomerular Filtration Rate 83 mL/min (>60); Est Glom Filt Rate - Afr Amer 101 mL/min (>60); Glucose 110 mg/dL (74-106); Potassium 3.8 mmol/L (3.5-5.1); Sodium Level 132 mmol/L (136-145)
== END | disposition home or self-care (01) ==
LOC: MFPLAB 08:52
PROVIDERS: PCP Family Medicine; Referring Provider Family Medicine; Visit Provider Family Medicine
DX: E87.1 Hypo-osmolality and hyponatremia (principal)
CPT/HCPCS: 36415; 80048

== ENCOUNTER → 2020-03-27 | Outpatient (CLI) | payer MEDICARE, BC, SELFPAY ==
[2020-03-06 17:41] VITALS: BMI 26.6
[2020-03-27 12:43] LABS: Anion Gap 6 (5-15); BUN 9 mg/dL (7-18); BUN/Creat Ratio 11.1 RATIO (10-20); Calcium,Total 8.9 mg/dL (8.5-10.1); Chloride 100 mmol/L (98-107); Creatinine, Serum 0.81 mg/dL (0.55-1.02); EST Glomerular Filtration Rate 75 mL/min (>60); Est Glom Filt Rate - Afr Amer 91 mL/min (>60); Glucose 96 mg/dL (74-106); Potassium 4.4 mmol/L (3.5-5.1); Sodium Level 134 mmol/L (136-145)
== END | disposition home or self-care (01) ==
LOC: MFPLAB 09:38
PROVIDERS: PCP Family Medicine; Referring Provider Family Medicine; Visit Provider Family Medicine
DX: E87.1 Hypo-osmolality and hyponatremia (principal)
CPT/HCPCS: 36415; 80048

== ENCOUNTER → 2020-04-26 08:31 | Outpatient (CLI) | payer MEDICARE, BC, SELFPAY ==
--- NOTE | 2020-04-26 08:34 | BI_ITS ---
MAMMOGRAPHY - BILATERAL SCREENING REASON FOR EXAM: Female, 64 years old. Routine annual screening examination. PERTINENT HISTORY: Aunt with breast cancer. Remote right stereotactic breast biopsy. TECHNIQUE: Digital bilateral breast melissa (3D mammographic acquisition) in the CC and MLO projections. 2-D mediolateral oblique (MLO) and craniocaudad (CC) views of both breasts were obtained. CAD: Full Field Digital Mammography with Computer Added Detection was performed. COMPARISON: Comparison is made with prior examination dated 04/19/2019 and 04/15/2018. FINDINGS: Breast Composition: There are scattered areas of fibroglandular density. Questionable focal nodular density in the central aspect of the left breast as seen on the craniocaudad views. This measures 1.1 cm. The patient will be recalled for additional views of the left breast including 90 degree lateral and compression spot views in the craniocaudad projection. Stable asymmetry where more breast tissue is seen in the retroareolar region of the right breast as compared to the left side. This is unchanged. Once again, a tissue clip marker is seen in the axillary region of the right breast. Stable small benign appearing bilateral axillary lymph nodes. No other significant abnormalities are identified. BI/SCREEN MAMM (CAD) W/MELISSA BILAT IMPRESSION: Possible 1.1 cm density in the central portion of the left breast as seen on the craniocaudad view. The patient will be recalled for additional views. Recall Side: Left Breast ASSESSMENT CATEGORY: BIRADS Category 0: Incomplete. Need additional imaging evaluation. A letter regarding these results will be sent to the patient by the facility within 30 days. Approximately 10% of breast cancers are not detected by mammography. A normal mammogram should not delay biopsy of a clinically suspicious abnormality. [id number] Electronically Signed: Omega Prather, at 10:04 EDT , Service support ,
--- NOTE | 2020-04-26 08:54 | BD_ITS ---
STUDY: DUAL ENERGY X-RAY ABSORPTIOMETRY / DXA REASON FOR EXAM: Female, 64 years old. 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 COMPARISON: None. FINDINGS: Lumbar Spine (L1-L4): g/cm2 (1.020) / T-score (-1.3) / Z-score (0.4) Findings are suggestive of osteopenia with a low fracture risk. Left Femur Total: g/cm2 (0.860) / T-score (-1.2) / Z-score (0.1) Left Femoral Neck: g/cm2 (0.833) / T-score (-1.5) / Z-score (0.0) Right Femur Total: g/cm2 (0.807) / T-score (-1.6) / Z-score (-0.3) Right Femoral Neck: g/cm2 (0.739) / T-score (-2.1) / Z-score (-0.6) BD/Dexa Bone Density Study IMPRESSION: The patient is considered osteopenic as outlined below according to World Augusto Organization (WHO) criteria with a moderate fracture risk. Reference Information: The T-score is the number of standard deviations above or below the standard which is normal for young adults at their peak bone mineral density. The World Health Organization (WHO) interprets the T-scores as follows: Above -1 Normal bone density Between -1 and -2.5 Osteopenia Equal to / or below -2.5 Osteoporosis As a practical clinical guideline, osteopenia may be graded as follows: Mild -1 through -1.5 Moderate -1.6 through -2.0 Severe -2.1 through -2.4 The Z-score is the number of standard deviations above or below age-matched controls. A Z-score of less than -1.5 would be considered abnormal. References: 1. NIH Osteoporosis and Related Bone Diseases http://www.osteo.org 2. International Society for Clinical Densitometry http://www.iscd.org 3. National Osteoporosis Foundation http://www.nof.org Electronically Signed: Omega Prather, at 15:30 EDT , Service support ,
== END ==
PROVIDERS: PCP Family Medicine; Referring Provider Family Medicine; Visit Provider Family Medicine
DX: Z12.31 Encounter for screening mammogram for malignant neoplasm of breast (principal); M85.80 Other specified disorders of bone density and structure, unspecified site; Z78.0 Asymptomatic menopausal state; M81.0 Age-related osteoporosis without current pathological fracture; Z80.3 Family history of malignant neoplasm of breast
CPT/HCPCS: 77063; 77067; 77080

== ENCOUNTER → 2020-05-03 09:31 | Outpatient (CLI) | payer MEDICARE, BC, SELFPAY ==
--- NOTE | 2020-05-03 09:33 | US_ITS ---
STUDY: ULTRASOUND BREAST - LEFT REASON FOR EXAM: Female, 64 years old. Abnormal screening mammogram. TECHNIQUE: Axial and longitudinal images of the LEFT breast were performed with a high resolution ultrasound transducer. # OF IMAGES: 35 COMPARISON: Comparison is made with prior mammograms in earlier in the day as well as 04/26/2020. FINDINGS: LEFT Breast: Sonographic assessment was obtained. No sonographic abnormality is seen. US/Breast Limited Unilateral IMPRESSION: No sonographic abnormality is seen. ASSESSMENT CATEGORY: BIRADS Category 1: Negative. A letter regarding these results will be sent to the patient by the facility within 30 days. Electronically Signed: Omega Prather, at 10:31 EDT , Service support ,
--- NOTE | 2020-05-03 09:33 | BI_ITS ---
MAMMOGRAPHY - UNILATERAL DIAGNOSTIC: LEFT BREAST REASON FOR EXAM: Female, 64 years old. Abnormal screening mammogram. PERTINENT HISTORY: Aunt with breast cancer. Remote right stereotactic breast biopsy. TECHNIQUE: 90 degree lateral and compression views of the left breast were obtained in the mediolateral oblique and craniocaudad views. CAD: Full Field Digital Mammography with Computer Added Detection was performed. COMPARISON: Comparison is made with prior mammogram dated 04/26/2020. FINDINGS: Breast Composition: There are scattered areas of fibroglandular density. The focal area of architectural distortion in the central aspect of the left breast is not well seen at this time. Correlation with ultrasound is recommended. No other significant abnormalities are identified. BI/DIAG MAMM W/CAD, UNILAT IMPRESSION: The focal area of architectural distortion in the central portion of the left breast is not well seen at this time. Correlation with ultrasound is recommended. ASSESSMENT CATEGORY: BIRADS Category 0: Incomplete. Need additional imaging evaluation. A letter regarding these results will be sent to the patient by the facility within 30 days. Approximately 10% of breast cancers are not detected by mammography. A normal mammogram should not delay biopsy of a clinically suspicious abnormality. Electronically Signed: Omega Prather, at 10:30 EDT , Service support ,
== END ==
PROVIDERS: PCP Family Medicine; Referring Provider Family Medicine; Visit Provider Family Medicine
DX: R92.8 Other abnormal and inconclusive findings on diagnostic imaging of breast (principal); Z80.3 Family history of malignant neoplasm of breast
CPT/HCPCS: 76642; 77065

== ENCOUNTER → 2021-02-19 11:12 | Outpatient (CLI) | payer MEDICARE, BC, SELFPAY ==
--- NOTE | 2021-02-19 11:26 | RAD_ITS ---
STUDY: X-RAY - LEFT ELBOW REASON FOR EXAM: Female, 65 years old. Elbow swelling. TECHNIQUE: 3 view(s) of the elbow. COMPARISON: None. FINDINGS: Normal visualized humerus, radius and ulna. Normal radiocapitellar and ulnotrochlear articulations. The soft tissue structures are unremarkable. RAD/Elbow min 3 Views IMPRESSION: No abnormality of the left elbow. Electronically Signed: Cr Eaton MD at 11:04 EDT , Service support ,
== END ==
PROVIDERS: PCP Family Medicine; Referring Provider Family Medicine; Visit Provider Family Medicine
DX: M25.429 Effusion, unspecified elbow (principal)
CPT/HCPCS: 73080

== ENCOUNTER → 2021-02-21 08:12 | Outpatient (CLI) | payer MEDICARE, BC, SELFPAY ==
[2021-02-21 10:32] LABS: Absolute Lymphocyte Count 2.15 X10^3/uL (0.83-4.51); Absolute Neutrophil Count 2.5 X10^3/uL (2.0-7.7); Basophil# 0.03 X10^3/uL; Basophil% 0.6 % (0-1); Eosinophil# 0.06 X10^3/uL; Eosinophils% 1.2 % (0-5); Hematocrit 44.2 % (37-47); Hemoglobin 15.2 g/dL (12.0-15.0); Lymphocyte # 2.15 X10^3/ul (0.83-4.51); Lymphocyte % 41.4 % (19-41); Mean Corp Hgb Conc 34.4 g/dL (32-36); Mean Corpuscular Hgb 36.5 pg (27.0-32.0); Mean Platelet Vol. 10.9 fl (6.2-12.0); Monocyte# 0.47 X10^3/uL; Monocyte% 9.1 % (0-10); NRBC Flagged by Analyzer 0 % (0-5); Neutrophil # 2.47 X10^3/uL (2.7-7.7); Neutrophil % 47.5 % (47-70); Platelet Count 204 K/mm3 (150-450); RBC Distribution Width CV 12.7 % (11.6-14.6); RBC Distribution Width SD 49.7 fl (35.1-43.9); Red Blood Count 4.17 M/mm3 (4.2-5.4); White Blood Count 5.2 K/mm3 (4.4-11.0)
[2021-02-21 10:44] LABS: ALB/GLOB Ratio 0.8 RATIO (0.9-2.4); AST(SGOT) 70 U/L (15-37); Alanine Aminotransfer ALT/SGPT 56 U/L (13-56); Albumin, Serum 3.5 g/dL (3.2-5.0); Alkaline Phosphatase 152 U/L (45-117); Anion Gap 6 (5-15); BUN 6 mg/dL (7-18); BUN/Creat Ratio 6.8 RATIO (10-20); Chloride 100 mmol/L (98-107); Cholesterol 183 mg/dL (200); Creatinine, Serum 0.88 mg/dL (0.55-1.02); EST Glomerular Filtration Rate 68 mL/min (>60); Est Glom Filt Rate - Afr Amer 82 mL/min (>60); Globulin 4.2 g/dL (2.2-4.2); Glucose 101 mg/dL (74-106); High Density Lipoprotein 66 mg/dL; Potassium 4.2 mmol/L (3.5-5.1); Protein, Total 7.7 g/dL (6.4-8.2); Sodium Level 135 mmol/L (136-145); Triglycerides 94 mg/dL; Very Low Density Lipoprotein 19 mg/dL (5-40)
== END ==
PROVIDERS: PCP Family Medicine; Referring Provider Family Medicine; Visit Provider Family Medicine
DX: I10 Essential (primary) hypertension (principal)
CPT/HCPCS: 36415; 80053; 80061; 85025

== ENCOUNTER → 2021-03-12 15:44 | Outpatient (CLI) | payer MEDICARE, BC, SELFPAY ==
--- NOTE | 2021-03-12 11:50 | COLBX_PTH ---
PATIENT: MONET SIMPSON LOC: [facility] U#:[id number] AGE/SX: 69/F ROOM: RE03/12/[address]: Dr. Esvin Stovall MD : 1955 BED: DIS: SPEC #: [id number] RECD: 03/12/21 15:11 STATUS: IRA TERAN #: [id number] ZIGGY: 03/12/21 11:[address]: Esvin Stovall DEPT: SURGICAL PATHOLOGY RECD BY: Jemal Quintana ENTERED: 03/13/21 08:23 SP TYPE: COLON BX OTHR DR: Dr. Ernie Molina MD [facility] Tissues: SPLENIC FLEXURE Procedures: Surgery Specimen Level IV HEADER OPERATION: Colonoscopy with polypectomy PRE-OP DIAGNOSIS: High risk screening / polyp TISSUE SUBMITTED: Splenic flexure polyp, rule out adenoma MICROSCOPIC DIAGNOSIS Splenic flexure polyp, biopsy: A fragment of colonic mucosa, no pathologic diagnosis. See comment. JUAN:ange 03/14/2021 COMMENT Hyperplastic or adenomatous changes are not seen. Correlation with clinical, endoscopic findings and appropriate follow up are necessary. MICROSCOPIC DESCRIPTION Slides are reviewed. GROSS DESCRIPTION Received in fixative is one container labeled with the patient's name and designated splenic flexure. The specimen consists of one irregular fragment of light olivo soft tissue that measures 0.2 x 0.1 x <0.1 cm. The specimen is totally submitted in one cassette. / AM:ange 03/13/21 TC:4 CPT: 99284
== END ==
PROVIDERS: PCP Family Medicine; Referring Provider Internal Medicine Gastroenterology; Visit Provider Internal Medicine Gastroenterology
DX: Z12.11 Encounter for screening for malignant neoplasm of colon (principal); K63.5 Polyp of colon
CPT/HCPCS: 88305

== ENCOUNTER → 2021-05-04 09:52 | Outpatient (CLI) | payer MEDICARE, BC, SELFPAY ==
--- NOTE | 2021-05-04 09:54 | BI_ITS ---
MAMMOGRAPHY - BILATERAL SCREENING 3-D TOMOSYNTHESIS REASON FOR EXAM: Female, 65 years old. SCREENING PERTINENT HISTORY: No significant family history. TECHNIQUE: 2-D mammograms and 3-D Tomosynthesis of the breast (s) were performed. CAD was performed. COMPARISON: 04/19/2019 FINDINGS: The breast composition is composed of scattered fibroglandular density. Scattered benign calcifications are seen. No dense spiculated masses or suspicious microcalcifications are identified. No architectural distortion is identified. There is no skin thickening or retraction. There has been no significant change since the prior study. BI/Bilat Brst Screen [place] Add-On IMPRESSION: No mammographic signs of malignancy. Routine yearly mammograms recommended. ASSESSMENT CATEGORY: BIRADS Category 1: Negative. A letter regarding these results will be sent to the patient by the facility within 30 days. FOLLOW UP RECOMMENDATION: Yearly follow up mammogram recommended. (A) Approximately 10% of breast cancers are not detected by mammography. A normal mammogram should not delay biopsy of a clinically suspicious abnormality. Electronically Signed: Paras Stratton MD at 10:46 EDT Tel , Service support ,
== END ==
PROVIDERS: PCP Family Medicine; Referring Provider Family Medicine; Visit Provider Family Medicine
DX: Z12.31 Encounter for screening mammogram for malignant neoplasm of breast (principal)
CPT/HCPCS: 77063; 77067

== ENCOUNTER 2022-01-27 01:26 | Emergency (ER) | payer MEDICARE, BC, SELFPAY ==
[2022-01-27 01:27] VITALS: BP 215/106; PULSE 86; RESP 20; TEMP 36.8; O2SAT 96; BMI 27.3
--- NOTE | 2022-01-27 01:43 | CT_ITS ---
STUDY: CT ABDOMEN AND PELVIS WITH CONTRAST REASON FOR EXAM: Female, 66 years old. pain RADIATION DOSAGE (If Supplied By Facility): CTDIvol = ( 17.07 ) mGy, DLP = ( 1104.90 ) mGycm TECHNIQUE: Transaxial images were obtained from the dome of the diaphragm to the symphysis pubis without oral contrast. IV 100mL Isovue-300 was administered. Sagittal and coronal images were reconstructed. Individualized dose optimization techniques were used for this CT. COMPARISON: 03/04/2020. FINDINGS: LOWER CHEST: 3 mm nodule left lower lobe and tiny subpleural reticular nodular opacities on the right, not significantly changed. LIVER: Scattered tiny calcifications. GALLBLADDER/BILE DUCTS: Focal gallbladder wall thickening at the fundus anteriorly. No definite calcified gallstones. PANCREAS: Unremarkable. SPLEEN: Small calcifications previous granulomatous process. ADRENAL GLANDS: Left adrenal 3 cm heterogeneous nodule not significantly changed, probable adenoma. KIDNEYS / URETERS: A few small calculi in both kidneys. No hydronephrosis. Relatively prominent enhancement of the wall of the left renal pelvis at the UPJ with mild adjacent stranding similar to prior study. A few small cysts in the left kidney. BOWEL / MESENTERY: Fluid distended nondilated small bowel mid to lower abdomen with prominent folds. No bowel obstruction. APPENDIX: Questionably identified with fecalith or inspissated material at the orifice. No evidence of acute appendicitis. PERITONEUM: No free air. No free fluid. VESSELS: Infrarenal aorta is maximal 2.9 cm transverse by 2.7 cm AP, borderline enlarged. Atherosclerotic calcifications. No retroperitoneal hematoma. Aortic calcifications and calcifications of the iliac arteries especially the left common iliac artery with bulky calcifications essentially filling the lumen. Findings are unchanged. RETROPERITONEUM: Unremarkable. REPRODUCTIVE ORGANS: Uterus not identified. BLADDER: Unremarkable. ABDOMINAL WALL: Unremarkable. BONES: No acute abnormality. OTHER: None. CT/Abdomen/Pelvis W IV Cont ONLY IMPRESSION: Fluid distended small bowel can be seen with acute enteritis or ileus. No bowel obstruction. Focal gallbladder wall thickening, ultrasound correlation may be helpful to evaluate for cholecystitis if clinically indicated. Relatively prominent enhancing wall of the left renal pelvis at the UPJ is unchanged compared to prior study could be inflammatory or chronic. 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 Atherosclerotic disease with bulky calcifications of the left common iliac artery. Left adrenal mass unchanged probable adenoma. Bilateral nephrolithiasis without hydronephrosis. Electronically Signed: Latanya Lovett MD at 3:33 EDT ,
--- NOTE | 2022-01-27 01:44 | EKG12_ITS ---
Test Reason : ABD PAIN Blood Pressure : / mmHG Vent. Rate : 066 BPM Atrial Rate : 066 BPM P-R Int : 144 ms QRS Dur : 072 ms QT Int : 440 ms P-R-T Axes : 003 017 037 degrees QTc Int : 461 ms Normal sinus rhythm Nonspecific ST abnormality Abnormal ECG Confirmed by MILAGROS OTOOLE, BLANK ([id number]), web content editor NELSON RUIZ ([id number]) on 01/29/2022 1:14:40 PM Referred By: MANISH Confirmed By:BLANK LINARES MD
[2022-01-27] MEDS: Ondansetron 4 MG/2 ML Vial IV (01:52)
[2022-01-27] MEDS: 0.9% Normal Saline 1,000 ML 1000 ML IV (01:52)
[2022-01-27 01:55] LABS: Absolute Neutrophil Count 3.4 X10^3/uL (2.0-7.7); Basophil# 0.02 X10^3/uL; Basophil% 0.3 % (0-1); Eosinophil# 0.06 X10^3/uL; Hematocrit 40.1 % (37-47); Hemoglobin 14.5 g/dL (12.0-15.0); Lymphocyte % 32.1 % (19-41); Mean Corp Hgb Conc 36.2 g/dL (32-36); Mean Corpuscular Hgb 37.6 pg (27.0-32.0); Mean Corpuscular Volume 103.9 fL (81-99); Mean Platelet Vol. 10.2 fl (6.2-12.0); Monocyte# 0.57 X10^3/uL; Monocyte% 9.6 % (0-10); NRBC Flagged by Analyzer 0 % (0-5); Neutrophil # 3.36 X10^3/uL (2.7-7.7); Neutrophil % 56.8 % (47-70); Platelet Count 199 K/mm3 (150-450); RBC Distribution Width CV 11.9 % (11.6-14.6); RBC Distribution Width SD 44.7 fl (35.1-43.9); Red Blood Count 3.86 M/mm3 (4.2-5.4); White Blood Count 5.9 K/mm3 (4.4-11.0)
--- NOTE | 2022-01-27 02:12 | EDS_ITS ---
HPI HPI - GI History of Present Illness Chief Complaint: Abd Pain Informant: patient Narrative Narrative: Patient states that she has food poisoning. Patient states that morning she ate at a restaurant with some eggs toast. That evening of she got some abdominal cramping and nausea and vomiting. She has had nausea and vomiting since. She states she is not vomiting a lot but cannot keep a lot of fluids down. She is not really passing stool. She is passing gas but only a small amount. She has some abdominal cramping and bloating. She cannot localize the pain to any 1 area. Only prior abdominal surgery is hysterectomy. She states a friend of hers had similar symptoms after eating at the same place in the same morning. However, her symptoms did not start till 7 or 8 hours after eating. She has no chest pain or trouble breathing. No vomiting of blood. No urinary symptoms. No back or flank pain. Patient initially stated she was only on lisinopril and carvedilol. I then find out that recently she was on antiviral and prednisone for shingles. She has been off and on gabapentin. Further questioning also find out that she is on Phenergan that she takes every single morning and has for many years. [facility] Medical History Hypertension Home Medications hydrochlorothiazide 25 mg PO DAILY 03/04/20 [History Last Taken Unknown] omeprazole 20 mg PO DAILY 03/04/20 [History Last Taken Unknown] ramipril 5 mg PO DAILY 03/04/20 [History Last Taken Unknown] atorvastatin 40 mg PO QHS #30 tab 03/05/20 [Rx Last Taken Unknown] carvedilol 12.5 mg PO BID #60 tab 03/05/20 [Rx Last Taken Unknown] psyllium husk (aspartame) 1 packet PO DAILY packet 03/05/20 [Rx Last Taken Unknown] dicyclomine 20 mg PO TID #10 tab 01/27/22 [Rx Last Taken Unknown] ondansetron 4 mg PO Q8H PRN #10 tab 01/27/22 [Rx Last Taken Unknown] Allergy/AdvReac Type Severity Reaction Status Date / Time No Known Allergies Allergy Verified 01/27/22 01:54 Surgical History H/O: hysterectomy Hx of foot surgery Social History Smoking Status: Current every day smoker tobacco type: cigarettes ROS ROS ED Constitutional Constitutional ED: Denies chills or fever(s) ENT ENT ED: Denies rhinorrhea or sore throat Cardiovascular Cardiovascular: Denies chest pain or palpitations Respiratory/Chest Respiratory/Chest: Denies cough, dyspnea or sputum Gastrointestinal Gastrointestinal: Reports abdominal pain, nausea and vomiting; Denies constipation, diarrhea or melena Genitourinary Genitourinary ED: Denies dysuria or hematuria Musculoskeletal Musculoskeletal: Denies back pain or myalgias Integumentary Denies rash Neurologic Neurologic: Denies headache(s) Psychiatric Psychiatric: Denies anxiety or depression Endocrine Endocrinology: Denies polydipsia or polyuria Hematologic/Lymphatic Hematologic/Lymphatic: Denies easy bleeding or easy bruising Allergic/Immunologic Allergic/Immunologic ED: Denies urticaria EXAM Physical Exam Const Vital Signs: 01/27/22 01:27 Temperature 98.2 F Temperature Source Oral Pulse Rate 86 Respiratory Rate 20 H Blood Pressure 215/106 H Blood Pressure Mean 142 Pulse Ox 96 Oxygen Delivery Method Room Air Positive well nourished and well developed General Appearance ED: well developed and NAD; Negative for pallor HEENT Reports dry mucous membranes Mouth ED: Yes dry mucous membranes Mouth: dry mucous membranes Eyes General Eye ED: Negative for pale conjunctiva or scleral icterus Neck no JVD Resp normal respiratory effort and clear to auscultation bilaterally Cardio regular rate, regular rhythm and no murmurs GI non-tender and non-distended Auscultation: hyperactive bowel sounds Palpation: soft Back/Spine no CVA tenderness Extremity full ROM General Extremety ED: Negative for tenderness Neuro Sensorium / Orientation: alert Psych mental status grossly normal Skin no wounds General Skin Exam: Negative for jaundice or pallor MDM MDM MDM Narrative Medical decision making narrative: Patient CBC shows normal white count hemoglobin and platelets. Electrolytes are overall relatively normal. Minimally decreased sodium. LFTs are normal. Glucose is minimally elevated at 133. Lipase is negative. CT scan shows some increased fluid in the small bowel but no dilation. No sign of obstruction. This could be seen with an enteritis or ileus. However, she has good bowel sounds. No clinical indication of ileus at this time. No increased stool in the colon. I talked with the patient again. She feels much better now. She has drank water and has kept it down. She would like to go home. She would like something for cramping and nausea which we can provide. I explained that she also has a little thickened area in 1 part of the gallbladder but she has no tenderness on initial or repeat exam in that area. There is no tenderness at all on repeat exam. If she develops fevers, recurrent vomiting or any other concerns she should return. Lab Data Attestation: I reviewed the patient's lab results. Labs: Laboratory Results - last 24 hr 01/27/22 01/27/22 01:30 01:30 WBC 5.9 RBC 3.86 L Hgb 14.5 Hct 40.1 MCV 103.9 H MCH 37.6 H MCHC 36.2 H RDW Std Deviation 44.7 H RDW Coeff of Charley 11.9 Plt Count 199 MPV 10.2 Immature Gran % (Auto) 0.200 Neut % (Auto) 56.8 Lymph % (Auto) 32.1 [place] % (Auto) 9.6 Eos % (Auto) 1.0 Baso % (Auto) 0.3 Absolute Neuts (auto) 3.4 Absolute Lymphs (auto) 1.90 Nucleated RBC % 0 Sodium 132 L Potassium 3.6 Chloride 98 Carbon Dioxide 29.0 Anion Gap 5 BUN 6 L Creatinine 0.81 Estim Creat Clear Calc 57.40 Est GFR (MDRD) Af Amer 90 Est GFR (MDRD) Non-Af 75 BUN/Creatinine Ratio 7.4 L Glucose 133 H Calcium 9.6 Total Bilirubin 0.60 AST 18 ALT 22 Alkaline Phosphatase 86 Total Protein 7.6 Albumin 3.5 Globulin 4.1 Albumin/Globulin Ratio 0.9 Lipase 134 Radiography Diagnostic Testing: Clinical Impression(s) from Imaging Studies Abdomen/Pelvis CT 01/27/22 01:43 IMPRESSION: Fluid distended small bowel can be seen with acute enteritis or ileus. No bowel obstruction. Focal gallbladder wall thickening, ultrasound correlation may be helpful to evaluate for cholecystitis if clinically indicated. Relatively prominent enhancing wall of the left renal pelvis at the UPJ is unchanged compared to prior study could be inflammatory or chronic. 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 Atherosclerotic disease with bulky calcifications of the left common iliac artery. Left adrenal mass unchanged probable adenoma. Bilateral nephrolithiasis without hydronephrosis. Electronically Signed: Latanya Lovett MD at 3:33 EDT , EKG Initial EKG: Comments: EKG done for upper abdominal pain in a 66-year-old and read by me shows normal sinus rhythm. Overall rate of 66. No ventricular ectopy. Mild irregular baseline but no acute ST elevation or depression. OH interval, QRS duration and QTc normal. Discharge Plan Triage Chief Complaint: Abd Pain ED Provider: Luis Reyna Dx/Rx/DC Orders Clinical Impression: Nausea & vomiting, Abdominal cramping Instructions: ED Abdominal Pain Unkn Cause Fem Prescriptions: New dicyclomine 20 mg tablet 20 mg PO TID Qty: 10 RF: 0 ondansetron 4 mg tablet,disintegrating 4 mg PO Q8H PRN (Reason: nausea and vomiting) Qty: 10 RF: 0 No Action omeprazole 20 MG capsule 20 mg PO DAILY RF: 0 hydrochlorothiazide 25 MG tablet 25 mg PO DAILY RF: 0 ramipril 5 MG capsule 5 mg PO DAILY RF: 0 psyllium husk (aspartame) 1 PACKET packet 1 packet PO DAILY RF: 0 carvedilol 12.5 MG tablet 12.5 mg PO BID Qty: 60 RF: 0 atorvastatin 40 MG tablet 40 mg PO QHS Qty: 30 RF: 0 Primary Care Provider: Mk Beltrán Referrals: Mk Beltrán MD [Primary Care Provider] - 2 Days Disposition Disposition: Home, Self Care
[2022-01-27] MEDS: Morphine 4 MG/ML Syringe IV (02:35)
[2022-01-27 02:44] LABS: ALB/GLOB Ratio 0.9 RATIO (0.9-2.4); AST(SGOT) 18 U/L (15-37); Alanine Aminotransfer ALT/SGPT 22 U/L (13-56); Albumin, Serum 3.5 g/dL (3.2-5.0); Alkaline Phosphatase 86 U/L (45-117); Anion Gap 5 (5-15); BUN 6 mg/dL (7-18); BUN/Creat Ratio 7.4 RATIO (10-20); Calcium,Total 9.6 mg/dL (8.5-10.1); Chloride 98 mmol/L (98-107); Creatinine, Serum 0.81 mg/dL (0.55-1.02); EST Glomerular Filtration Rate 75 mL/min (>60); Est Glom Filt Rate - Afr Amer 90 mL/min (>60); Globulin 4.1 g/dL (2.2-4.2); Glucose 133 mg/dL (74-106); Lipase 134 U/L (73-393); Potassium 3.6 mmol/L (3.5-5.1); Protein, Total 7.6 g/dL (6.4-8.2); Sodium Level 132 mmol/L (136-145)
[2022-01-27 05:10] VITALS: BP 132/78; PULSE 88
== END 2022-01-27 05:10 | disposition home or self-care (01) ==
PROVIDERS: Emergency Provider Emergency Medicine; PCP Family Medicine; Visit Provider Emergency Medicine
DX: R10.9 Unspecified abdominal pain (principal); R11.2 Nausea with vomiting, unspecified; I10 Essential (primary) hypertension; F17.210 Nicotine dependence, cigarettes, uncomplicated; Z90.710 Acquired absence of both cervix and uterus; Z79.899 Other long term (current) drug therapy
CPT/HCPCS: 74177; 80053; 83690; 85025; 93005; 96361; 96374; 96375; 99282; J7030; Q9967; A4216; J2405

== ENCOUNTER 2022-01-31 01:06 | Emergency (ER) | payer MEDICARE, BC, SELFPAY ==
[2022-01-31 01:12] VITALS: BP 225/111; PULSE 74; RESP 18; TEMP 36.4; O2SAT 98; BMI 28.0
[2022-01-31 01:15] VITALS: BP 217/105
--- NOTE | 2022-01-31 01:48 | US_ITS ---
EXAM: US ABDOMEN LIMITED, RIGHT UPPER QUADRANT CLINICAL INDICATION: RUQ pain TECHNIQUE: Real-time ultrasound of the right upper quadrant with image documentation. This report was created using [employer] report generation technology. COMPARISON: None. FINDINGS: LIVER: Increased echogenicity of the liver. No intrahepatic biliary ductal dilation. GALLBLADDER: Unremarkable. No shadowing gallstone. No gallbladder wall thickening is demonstrated. No pericholecystic fluid. Negative sonographic Nance''s sign. COMMON BILE DUCT: Unremarkable as visualized. The proximal common bile duct is within normal limits for the patient''s age. PANCREAS: Pancreas was not visualized. RIGHT KIDNEY: Small 3 mm nonobstructing calculus right kidney. No focal lesion or perinephric collection is demonstrated. US/Gallbladder IMPRESSION: 1. Fatty liver. 2. Small 3 mm nonobstructing calculus right kidney. 3. No acute abnormality identified. Electronically Signed: Serg Mays MD at 3:35 EDT ,
[2022-01-31] MEDS: HYDROmorphone 1 MG/ML Syringe IV (01:57)
[2022-01-31] MEDS: Ondansetron 4 MG/2 ML Vial IV (01:57)
[2022-01-31 02:01] VITALS: BP 196/89
[2022-01-31 02:26] VITALS: BP 180/93
[2022-01-31 02:29] LABS: AST(SGOT) 26 U/L (15-37); Alanine Aminotransfer ALT/SGPT 23 U/L (13-56); Albumin, Serum 3.3 g/dL (3.2-5.0); Alkaline Phosphatase 85 U/L (45-117); Anion Gap 8 (5-15); BUN 6 mg/dL (7-18); BUN/Creat Ratio 7.4 RATIO (10-20); Bilirubin, Direct 0.11 mg/dL (0.00-0.30); Calcium,Total 8.9 mg/dL (8.5-10.1); Chloride 93 mmol/L (98-107); Creatinine, Serum 0.81 mg/dL (0.55-1.02); EST Glomerular Filtration Rate 75 mL/min (>60); Est Glom Filt Rate - Afr Amer 91 mL/min (>60); Glucose 108 mg/dL (74-106); Lipase 189 U/L (73-393); Potassium 3.6 mmol/L (3.5-5.1); Protein, Total 7.3 g/dL (6.4-8.2); Sodium Level 129 mmol/L (136-145)
[2022-01-31 02:35] LABS: Absolute Lymphocyte Count 2.18 X10^3/uL (0.83-4.51); Absolute Neutrophil Count 2.4 X10^3/uL (2.0-7.7); Basophil# 0.03 X10^3/uL; Basophil% 0.6 % (0-1); Eosinophils% 1.9 % (0-5); Hematocrit 37.9 % (37-47); Hemoglobin 13.6 g/dL (12.0-15.0); Lymphocyte # 2.18 X10^3/ul (0.83-4.51); Lymphocyte % 41.2 % (19-41); Mean Corp Hgb Conc 35.9 g/dL (32-36); Mean Corpuscular Hgb 37.1 pg (27.0-32.0); Mean Corpuscular Volume 103.3 fL (81-99); Mean Platelet Vol. 10.6 fl (6.2-12.0); Monocyte# 0.54 X10^3/uL; Monocyte% 10.2 % (0-10); NRBC Flagged by Analyzer 0 % (0-5); Neutrophil # 2.42 X10^3/uL (2.7-7.7); Neutrophil % 45.7 % (47-70); Platelet Count 252 K/mm3 (150-450); RBC Distribution Width CV 11.8 % (11.6-14.6); RBC Distribution Width SD 44.6 fl (35.1-43.9); Red Blood Count 3.67 M/mm3 (4.2-5.4); White Blood Count 5.3 K/mm3 (4.4-11.0)
[2022-01-31 02:58] LABS: Lactic Acid 0.7 mmol/L (0.4-1.9)
--- NOTE | 2022-01-31 04:45 | EX.ED.DYSGE1 ---
HPI History of Present Illness Chief Complaint: Abd Pain Narrative Narrative: Patient is a 66-year-old female who was seen in the ER on January 27. At that time she had a CT scan showing changes consistent with gastroenteritis and questionable thickening of the gallbladder. She was feeling better and therefore was discharged home. She states that she has been doing okay with minimal pain but that this evening developed sharp pain in the right upper quadrant radiating towards her right shoulder. She states the pain would not resolve with time and secondary to this she comes in for evaluation. [facility] Medical History Hypertension Home Medications hydrochlorothiazide 25 mg PO DAILY 03/04/20 [History Last Taken Unknown] omeprazole 20 mg PO DAILY 03/04/20 [History Last Taken Unknown] ramipril 5 mg PO DAILY 03/04/20 [History Last Taken Unknown] psyllium husk (aspartame) 1 packet PO DAILY packet 03/05/20 [Rx Last Taken Unknown] dicyclomine 20 mg PO TID #10 tab 01/27/22 [Rx Last Taken Unknown] ondansetron 4 mg PO Q8H PRN #10 tab 01/27/22 [Rx Last Taken Unknown] atorvastatin 20 mg PO QHS 01/31/22 [History Last Taken Unknown] carvedilol 6.25 mg PO BID 01/31/22 [History Last Taken Unknown] ondansetron 4 mg PO Q8H PRN #21 tab 01/31/22 [Rx Last Taken Unknown] oxycodone-acetaminophen [Endocet] 1 tab PO Q6H PRN 3 Days #12 tab 01/31/22 [Rx Last Taken Unknown] Allergy/AdvReac Type Severity Reaction Status Date / Time No Known Allergies Allergy Verified 01/31/22 01:07 Surgical History H/O: hysterectomy Hx of foot surgery Social History Smoking Status: Current every day smoker tobacco type: cigarettes ROS ROS ED Constitutional Constitutional ED: Denies chills or fever(s) ENT ENT ED: Denies sore throat Cardiovascular Cardiovascular: Denies chest pain Respiratory/Chest Respiratory/Chest: Denies cough or dyspnea Gastrointestinal Gastrointestinal: Reports abdominal pain and nausea; Denies diarrhea or vomiting Genitourinary Genitourinary ED: Denies dysuria Musculoskeletal Musculoskeletal: Denies myalgias Integumentary Denies rash Neurologic Neurologic: Denies headache(s) Hematologic/Lymphatic Hematologic/Lymphatic: Denies easy bleeding or easy bruising EXAM Physical Exam Const Vital Signs: 01/31/22 01:12 01/31/22 01:15 01/31/22 02:01 Temperature 97.6 F L Temperature Source Temporal Pulse Rate 74 Respiratory Rate 18 Blood Pressure 225/111 H 217/105 H 196/89 H Blood Pressure Mean 149 142 124 Pulse Ox 98 Oxygen Delivery Method Room Air 01/31/22 02:26 01/31/22 04:55 Temperature Temperature Source Pulse Rate Respiratory Rate 16 Blood Pressure 180/93 H Blood Pressure Mean 122 Pulse Ox Oxygen Delivery Method Positive well nourished and well developed General Appearance ED: well developed HEENT Reports moist mucous membranes Eyes PERRL and EOMs intact bilaterally General Eye ED: Negative for scleral icterus Neck supple Resp normal respiratory effort and clear to auscultation bilaterally Cardio regular rate and regular rhythm Rate: other Other Details: Radial pulses are +2-4 bilaterally are equal and symmetric GI non-distended GI Narrative: Abdomen is soft and nondistended with normoactive bowel sounds. Patient has pain with palpation in the right upper quadrant with slight guarding at the site. Negative Nance sign however. No rigidity noted. No pulsatile mass or fluid wave. Auscultation: normoactive bowel sounds Palpation: soft Back/Spine no CVA tenderness Extremity normal to inspection Neuro oriented x3 and CN's II-XII intact bilaterally Sensorium / Orientation: alert Motor Exam: strength 5/5 throughout Psych mental status grossly normal Skin Skin Narrative: Patient has feedings cabs/soft tissue changes from recent shingles infection in the T6 dermatome across the back and right upper quadrant MDM MDM MDM Narrative Medical decision making narrative: Patient presented to the ER hypertensive but does have a history of this and states she recently had her medication increased to help control the blood pressure better. Therefore I do not feel the need to work-up as far as endorgan damage goes. Her report of sudden onset pain greatest in the right upper quadrant radiating towards the right shoulder is most consistent for gallbladder dysfunction. As she is already had a CT scan recently I did elect to perform an ultrasound at this time. The ultrasound revealed no obvious signs of infection or stone. On reevaluation she does report her pain has improved from an 8 or 9 down to a 2. Therefore at this time as her labs do not suggest infection her liver enzymes are normal and her ultrasound does not suggest acute cholecystitis I do not feel there is need for admission. Patient be given Percocet for possibility of breakthrough pain and will be advised to see general surgery to discuss need for HIDA scan. However at this time as there is no signs of acute infection and her pain is improved she is safe for discharge. Lab Data Attestation: I reviewed the patient's lab results. Labs: Laboratory Results - last 24 hr 01/31/22 01/31/22 01/31/22 01:17 01:17 01:17 WBC 5.3 RBC 3.67 L Hgb 13.6 Hct 37.9 MCV 103.3 H MCH 37.1 H MCHC 35.9 RDW Std Deviation 44.6 H RDW Coeff of Charley 11.8 Plt Count 252 MPV 10.6 Immature Gran % (Auto) 0.400 Neut % (Auto) 45.7 L Lymph % (Auto) 41.2 H [place] % (Auto) 10.2 H Eos % (Auto) 1.9 Baso % (Auto) 0.6 Absolute Neuts (auto) 2.4 Absolute Lymphs (auto) 2.18 Nucleated RBC % 0 Sodium 129 L Potassium 3.6 Chloride 93 L Carbon Dioxide 28.0 Anion Gap 8 BUN 6 L Creatinine 0.81 Estim Creat Clear Calc 57.40 Est GFR (MDRD) Af Amer 91 Est GFR (MDRD) Non-Af 75 BUN/Creatinine Ratio 7.4 L Glucose 108 H Lactic Acid 0.7 Calcium 8.9 Total Bilirubin 0.30 Direct Bilirubin 0.11 AST 26 ALT 23 Alkaline Phosphatase 85 Total Protein 7.3 Albumin 3.3 Globulin 4.0 Lipase 189 Radiography Diagnostic Testing: Clinical Impression(s) from Imaging Studies Gallbladder Ultrasound 01/31/22 01:48 IMPRESSION: 1. Fatty liver. 2. Small 3 mm nonobstructing calculus right kidney. 3. No acute abnormality identified. Electronically Signed: Serg Mays MD at 3:35 EDT , Discharge Plan Triage Chief Complaint: Abd Pain ED Provider: Rony Virgen Dx/Rx/DC Orders Clinical Impression: Biliary colic Instructions: Discharge Instructions for ..., ED Cholecystitis, Presumed Prescriptions: New oxycodone-acetaminophen [Endocet] 5-325 mg tablet 1 tab PO Q6H PRN (Reason: pain) 3 Days Qty: 12 RF: 0 ondansetron 4 mg tablet,disintegrating 4 mg PO Q8H PRN (Reason: nausea and vomiting) Qty: 21 RF: 0 No Action omeprazole 20 MG capsule 20 mg PO DAILY RF: 0 hydrochlorothiazide 25 MG tablet 25 mg PO DAILY RF: 0 ramipril 5 MG capsule 5 mg PO DAILY RF: 0 psyllium husk (aspartame) 1 PACKET packet 1 packet PO DAILY RF: 0 dicyclomine 20 mg tablet 20 mg PO TID Qty: 10 RF: 0 ondansetron 4 mg tablet,disintegrating 4 mg PO Q8H PRN (Reason: nausea and vomiting) Qty: 10 RF: 0 atorvastatin 40 MG tablet 20 mg PO QHS RF: 0 carvedilol 12.5 MG tablet 6.25 mg PO BID RF: 0 Primary Care Provider: Mk Beltrán Referrals: Mk Beltrán MD [Primary Care Provider] - Jaclyn Boyle MD [STAFF PHYSICIAN] - 3-5 Days Activity Restrictions/Additional Instructions: Please eat small meals and stay away from greasy/fatty foods. If you have another attack take the Percocet as directed and if there is no improvement in your symptoms return to the ER for repeat evaluation Disposition Disposition: Home, Self Care Discharge Date/Time: 01/31/22 04:56
[2022-01-31 04:55] VITALS: RESP 16
== END 2022-01-31 04:56 | disposition home or self-care (01) ==
PROVIDERS: Emergency Provider Emergency Medicine; PCP Family Medicine; Visit Provider Emergency Medicine
DX: K80.50 Calculus of bile duct without cholangitis or cholecystitis without obstruction (principal); I10 Essential (primary) hypertension; F17.210 Nicotine dependence, cigarettes, uncomplicated; Z79.899 Other long term (current) drug therapy
CPT/HCPCS: 76705; 80048; 80076; 83605; 83690; 85025; 96361; 96374; 96375; 99283; J7030; A4216; J2405

== ENCOUNTER → 2022-02-18 | Outpatient (CLI) | payer MEDICARE, BC, SELFPAY ==
--- NOTE | 2022-02-18 09:33 | NM_ITS ---
Nuclear medicine HIDA scan Indication: Abdominal pain COMPARISON STUDIES : NM - None. CR - Not available for review at this time. CT - Not available for review at this time. MR - Not available for review at this time. Ultrasound -- 01/31/2022 Technique: 5.0 mCi of technetium 99m labeled mebrofenin was injected intravenously followed by standard imaging. 8 ounces boost ingested for calculation of gallbladder ejection fraction. Findings: There is homogenous activity throughout the liver. Normal excretion of isotope into the proximal small bowel. Activity in the gallbladder is identified at 30 minutes. Gallbladder ejection fraction measures 41%. NM/Hepatobilliary Img w/Pharm Int IMPRESSION: Normal filling of the gallbladder without evidence of acute cholecystitis or biliary obstruction. A gallbladder ejection fraction calculated to be less than 40 % (for fatty meal challenge) following the administration of Cholecystokinin makes the probability of functional hepatobiliary disease (gallbladder and/or sphincter of Oddi dyskinesia) and/or organic hepatobiliary disease (chronic acalculous cholecystitis and/or cystic duct syndrome) to be high. (Yani Gage et al, Journal of Nuclear Medicine 32:1695, 1991). Electronically Signed: Anupam Rico MD ([place]) at 11:36 EDT ,
== END | disposition home or self-care (01) ==
LOC: NM 09:30
PROVIDERS: PCP Family Medicine; Referring Provider Family Medicine; Visit Provider Family Medicine
DX: R10.9 Unspecified abdominal pain (principal)
CPT/HCPCS: 78227; A9537

== ENCOUNTER → 2022-05-08 | Outpatient (CLI) | payer MEDICARE, BC, SELFPAY ==
--- NOTE | 2022-05-08 08:26 | BI_ITS ---
MAMMOGRAPHY - BILATERAL SCREENING REASON FOR EXAM: Female, 66 years old. Routine annual screening examination. PERTINENT HISTORY: Aunt with breast cancer. Remote right stereotactic breast biopsy. TECHNIQUE: Digital bilateral breast melissa (3D mammographic acquisition) in the CC and MLO projections. 2-D mediolateral oblique (MLO) and craniocaudad (CC) views of both breasts were obtained. CAD: Full Field Digital Mammography with Computer Added Detection was performed. COMPARISON: Comparison is made with prior study 05/04/2021 and 04/26/2020. FINDINGS: Breast Composition: There are scattered areas of fibroglandular density. There are no dominant masses or suspicious calcifications. Stable small benign-appearing right axillary lymph nodes. A tissue marker is once again seen in the deep upper lateral aspect of the right breast. No other significant abnormalities are identified. There has been no significant change since the prior study. BI/SCRN MAMM (CAD)W/MELISSA BILAT IMPRESSION: Stable bilateral screening mammogram. Yearly follow-up mammogram recommended. (A) ASSESSMENT CATEGORY: BIRADS Category 2: Benign. A letter regarding these results will be sent to the patient by the facility within 30 days. Approximately 10% of breast cancers are not detected by mammography. A normal mammogram should not delay biopsy of a clinically suspicious abnormality. [id number] Electronically Signed: Omega Prather MD at 10:00 EDT ,
== END | disposition home or self-care (01) ==
LOC: OPBI 08:24
PROVIDERS: PCP Family Medicine; Visit Provider Family Medicine
DX: Z12.31 Encounter for screening mammogram for malignant neoplasm of breast (principal)
CPT/HCPCS: 77063; 77067

== ENCOUNTER → 2022-06-20 | Outpatient (CLI) | payer MEDICARE, BC, SELFPAY ==
[2022-06-20 10:55] LABS: Anion Gap 5 (5-15); BUN 7 mg/dL (7-18); Calcium,Total 9.1 mg/dL (8.5-10.1); Chloride 101 mmol/L (98-107); Cholesterol 189 mg/dL (200); Creatinine, Serum 0.78 mg/dL (0.55-1.02); EST Glomerular Filtration Rate 78 mL/min (>60); Est Glom Filt Rate - Afr Amer 95 mL/min (>60); Glucose 107 mg/dL (74-106); High Density Lipoprotein 71 mg/dL; Sodium Level 134 mmol/L (136-145); Triglycerides 82 mg/dL; Very Low Density Lipoprotein 16 mg/dL (5-40)
== END | disposition home or self-care (01) ==
LOC: MFPLAB 08:49
PROVIDERS: PCP Family Medicine; Referring Provider Family Medicine; Visit Provider Family Medicine
DX: I10 Essential (primary) hypertension (principal)
CPT/HCPCS: 36415; 80048; 80061

== ENCOUNTER → 2022-07-12 | Outpatient (CLI) | payer MEDICARE, BC, SELFPAY ==
--- NOTE | 2022-07-12 10:51 | RAD_ITS ---
EXAM: XR RIGHT FOOT COMPLETE, 3 OR MORE VIEWS CLINICAL INDICATION: Right foot pain TECHNIQUE: Frontal, lateral and oblique views of the right foot. This report was created using [employer] report generation technology. COMPARISON: None. FINDINGS: BONES/JOINTS: There is a large spur or osteophyte off the medial aspect of the navicular bone. No acute fracture. No subluxation. Normal alignment. Preservation of the joint space. No sclerotic or destructive changes observed. SOFT TISSUES: Unremarkable. No soft tissue swelling or gas. No radiopaque foreign body. RAD/Foot min 3 Views IMPRESSION: Large spur or osteophyte off the medial aspect of the navicular. There are no acute osseous abnormalities. Electronically Signed: Miki Parson MD at 21:01 EST ,
== END | disposition home or self-care (01) ==
LOC: MTRAD 10:51
PROVIDERS: PCP Family Medicine; Referring Provider Family Medicine; Visit Provider Family Medicine
DX: M79.671 Pain in right foot (principal)
CPT/HCPCS: 73630

== ENCOUNTER → 2022-12-24 | Outpatient (CLI) | payer MEDICARE, BC, SELFPAY ==
[2022-12-24 13:31] LABS: Anion Gap 4 (5-15); BUN 7 mg/dL (7-18); BUN/Creat Ratio 8.6 RATIO (10-20); Calcium,Total 9.3 mg/dL (8.5-10.1); Chloride 100 mmol/L (98-107); Cholesterol 185 mg/dL (200); Creatinine, Serum 0.81 mg/dL (0.55-1.02); EST Glomerular Filtration Rate 74 mL/min (>60); Est Glom Filt Rate - Afr Amer 90 mL/min (>60); Glucose 108 mg/dL (74-106); High Density Lipoprotein 65 mg/dL; Potassium 4.2 mmol/L (3.5-5.1); Sodium Level 132 mmol/L (136-145); Thyroid Stim Hormone (TSH) 3.46 uIU/mL (0.358-3.74); Triglycerides 96 mg/dL; Very Low Density Lipoprotein 19 mg/dL (5-40)
== END | disposition home or self-care (01) ==
LOC: MFPLAB 09:32
PROVIDERS: PCP Family Medicine; Visit Provider Family Medicine
DX: I10 Essential (primary) hypertension (principal); R53.83 Other fatigue
CPT/HCPCS: 36415; 80048; 80061; 84443

== ENCOUNTER → 2023-04-04 | Outpatient (CLI) | payer MEDICARE, BC, SELFPAY | END | disposition home or self-care (01) | PROVIDERS: PCP Family Medicine; Visit Provider Nurse Practitioner Family | DX: R35.0 Frequency of micturition (principal) | CPT/HCPCS: 87086; 87088; 87186 ==

== ENCOUNTER → 2023-05-14 | Outpatient (CLI) | payer MEDICARE, BC, SELFPAY ==
--- NOTE | 2023-05-14 12:10 | BI_ITS ---
MAMMOGRAPHY - BILATERAL SCREENING REASON FOR EXAM: Female, 67 years old. Routine annual screening examination. PERTINENT HISTORY: Aunt with breast cancer. Prior right stereotactic breast biopsy. TECHNIQUE: Digital bilateral breast melissa (3D mammographic acquisition) in the CC and MLO projections. 2-D mediolateral oblique (MLO) and craniocaudad (CC) views of both breasts were obtained. CAD: Full Field Digital Mammography with Computer Added Detection was performed. COMPARISON: Comparison is made with prior study dated May 08, 2022 and May 04, 2021. FINDINGS: Breast Composition: There are scattered areas of fibroglandular density. There are no dominant masses or suspicious calcifications. Stable asymmetry of breast tissue or more breast tissue is seen retroareolar region of the right breast as compared to the left side. A tissue clip marker is once again seen in the deep upper lateral aspect of the right breast. No other significant abnormalities are identified. There has been no significant change since the prior study. BI/SCRN MAMM (CAD)W/MELISSA BILAT IMPRESSION: Stable bilateral screening mammogram. Yearly follow-up mammogram recommended. (A) ASSESSMENT CATEGORY: BIRADS Category 2: Benign. A letter regarding these results will be sent to the patient by the facility within 30 days. Approximately 10% of breast cancers are not detected by mammography. A normal mammogram should not delay biopsy of a clinically suspicious abnormality. [id number] Electronically Signed: Omega Prather MD at 13:39 EDT ,
== END | disposition home or self-care (01) ==
LOC: OPBI 12:09
PROVIDERS: PCP Family Medicine; Referring Provider Family Medicine; Visit Provider Family Medicine
DX: Z12.31 Encounter for screening mammogram for malignant neoplasm of breast (principal)
CPT/HCPCS: 77063; 77067

== ENCOUNTER → 2023-06-25 | Outpatient (CLI) | payer MEDICARE, BC, SELFPAY ==
[2023-06-25 13:01] LABS: Absolute Lymphocyte Count 1.19 X10^3/uL (0.83-4.51); Absolute Neutrophil Count 3.1 X10^3/uL (2.0-7.7); Basophil# 0.01 X10^3/uL; Basophil% 0.2 % (0-1); Eosinophil# 0.05 X10^3/uL; Hematocrit 44.7 % (37-47); Hemoglobin 15.3 g/dL (12.0-15.0); Lymphocyte # 1.19 X10^3/ul (0.83-4.51); Lymphocyte % 24.6 % (19-41); Mean Corp Hgb Conc 34.2 g/dL (32-36); Mean Corpuscular Hgb 36.7 pg (27.0-32.0); Mean Corpuscular Volume 107.2 fL (81-99); Mean Platelet Vol. 10.7 fl (6.2-12.0); Monocyte# 0.43 X10^3/uL; Monocyte% 8.9 % (0-10); NRBC Flagged by Analyzer 0 % (0-5); Neutrophil # 3.14 X10^3/uL (2.7-7.7); Neutrophil % 65.1 % (47-70); Platelet Count 167 K/mm3 (150-450); RBC Distribution Width CV 11.9 % (11.6-14.6); RBC Distribution Width SD 46.5 fl (35.1-43.9); Red Blood Count 4.17 M/mm3 (4.2-5.4); White Blood Count 4.8 K/mm3 (4.4-11.0)
[2023-06-25 13:59] LABS: AST(SGOT) 34 U/L (15-37); Alanine Aminotransfer ALT/SGPT 28 U/L (13-56); Albumin, Serum 3.5 g/dL (3.2-5.0); Alkaline Phosphatase 114 U/L (45-117); Anion Gap 6 (5-15); BUN 8 mg/dL (7-18); BUN/Creat Ratio 8.9 RATIO (10-20); Calcium,Total 8.8 mg/dL (8.5-10.1); Chloride 102 mmol/L (98-107); EST Glomerular Filtration Rate 66 mL/min (>60); Est Glom Filt Rate - Afr Amer 79 mL/min (>60); Globulin 3.6 g/dL (2.2-4.2); Glucose 111 mg/dL (74-106); Potassium 4.1 mmol/L (3.5-5.1); Protein, Total 7.1 g/dL (6.4-8.2); Sodium Level 134 mmol/L (136-145); Thyroid Stim Hormone (TSH) 1.99 uIU/mL (0.358-3.74)
== END | disposition home or self-care (01) ==
LOC: MFPLAB 11:25
PROVIDERS: PCP Family Medicine; Visit Provider Family Medicine
DX: R53.83 Other fatigue (principal)
CPT/HCPCS: 36415; 80053; 84443; 85025

== ENCOUNTER → 2024-02-12 | Outpatient (CLI) | payer MEDICARE, BC, SELFPAY ==
--- NOTE | 2024-02-12 14:46 | ART_ITS ---
Reason For Study: Pain Procedure A bilateral lower extremity continuous wave Doppler with analog waveform analysis,segmental pressures,and ankle brachial indexes without exercise. Left Segmental Pressures Left brachial= 154mmHg. Left thigh = 109mmHg. Left calf = 98mmHg. Left posterior tibial artery = 86mmHg. Left dorsalis pedis artery = 83mmHg. Left digit = 73 mmHg. The left dorsalis pedis waveforms are monophasic. The left posterior tibial artery waveforms are monophasic. Right Segmental Pressures Right brachial= 170mmHg. Right thigh = 121mmHg. Right calf = 95mmHg. Right posterior tibial artery = 80mmHg. Right dorsalis pedis artery = 94mmHg. Right digit = 62 mmHg. The right dorsalis pedis waveforms are monophasic. The right posterior tibial artery waveforms are monophasic. Indices The right ankle brachial index by the dorsalis pedis is 0.55. The right ankle brachial index by the posterior tibial artery is 0.47. The right digital-brachial index is 0.36. The left ankle brachial index by the dorsalis pedis is 0.49. The left ankle brachial index by the posterior tibial artery is 0.51. The left digital-brachial index is 0.43. VL/Lower Ext Art Exam w/o Exercis Interpretation Summary Right SHANTELL 0.55, moderate arterial insufficiency. Doppler/PVR waveforms and segm ental pressures reveal cfsjf-ruizn-frzhwkoc femoral, distal SFA/popliteal disease. Left SHANTELL 0.51, moderate arterial insufficiency. Doppler/PVR waveforms and segme ntal pressures reveal xxhgb-atnin-ozpmgqwf femoral disease. Ordering Physician: Mk Beltrán Referring Physician: MK BELTRÁN MD Performed By: Shailesh Billings RVT and Student
== END | disposition home or self-care (01) ==
LOC: CVS 14:45
PROVIDERS: PCP Family Medicine; Referring Provider Family Medicine; Visit Provider Family Medicine
DX: R09.89 Other specified symptoms and signs involving the circulatory and respiratory systems (principal); M79.606 Pain in leg, unspecified
CPT/HCPCS: 93923

== ENCOUNTER → 2024-03-10 | Outpatient (CLI) | payer MEDICARE, BC, SELFPAY ==
--- NOTE | 2024-03-10 10:00 | BD_ITS ---
STUDY: DUAL ENERGY X-RAY ABSORPTIOMETRY / DXA REASON FOR EXAM: Female, 68 years old. [id number] TECHNIQUE: Bone Mineral Density (BMD) measurements of lumbar spine and bilateral hips were obtained. COMPARISON: Comparison is made with prior study dated April 26, 2020. FINDINGS: Lumbar Spine (L1-L4): g/cm2 (0.900) / T-score (-1.6) / Z-score (0.6) Findings are suggestive of osteopenia with a moderate fracture risk. Left Femur Total: g/cm2 (0.770) / T-score (-1.4) / Z-score (0.1) Left Femoral Neck: g/cm2 (0.635) / T-score (-1.9) / Z-score (-0.1) Right Femur Total: g/cm2 (0.740) / T-score (-1.7) / Z-score (-0.1) Right Femoral Neck: g/cm2 (0.592) / T-score (-2.3) / Z-score (at 0.5) The T-Scores on the most recent prior examination were: Lumbar Spine (L1-L4): There has been worsening of bone density since the previous examination. Left Femur Total: which represents a worsening of 3.5%. Right Femur Total: which represents a worsening of 0.8%. BD/Dexa Bone Density Study IMPRESSION: The patient is considered osteopenic as outlined below according to World [employer] Organization (WHO) criteria with a high fracture risk. There has been worsening of bone density since the previous examination. Reference Information: The T-score is the number of standard deviations above or below the standard which is normal for young adults at their peak bone mineral density. The World Health Organization (WHO) interprets the T-scores as follows: Above -1 Normal bone density Between -1 and -2.5 Osteopenia Equal to / or below -2.5 Osteoporosis As a practical clinical guideline, osteopenia may be graded as follows: Mild -1 through -1.5 Moderate -1.6 through -2.0 Severe -2.1 through -2.4 The Z-score is the number of standard deviations above or below age-matched controls. A Z-score of less than -1.5 would be considered abnormal. References: 1. NIH Osteoporosis and Related Bone Diseases www osteo.org 2. International Society for Clinical Densitometry www iscd.org 3. National Osteoporosis Foundation www nof.org Electronically Signed: Omega Prather MD at 10:51 EDT ,
== END | disposition home or self-care (01) ==
LOC: OPBD 09:56
PROVIDERS: PCP Family Medicine; Referring Provider Family Medicine; Visit Provider Family Medicine
DX: Z00.00 Encounter for general adult medical examination without abnormal findings (principal); Z78.0 Asymptomatic menopausal state
CPT/HCPCS: 77080

== ENCOUNTER → 2024-04-09 | Outpatient (CLI) | payer MEDICARE, BC, SELFPAY ==
--- NOTE | 2024-04-09 13:01 | CT_ITS ---
CT angiogram of the abdominal aorta with bilateral lower extremity runoff, with MIP reconstructions Clinical history: PAD Technique: Multiple helical CT images were obtained from the domes the diaphragms to level of feet after intravenous administration of iodinated contrast with transaxial, coronal and sagittal multiplanar reconstructions. On a separate workstation, 3-dimensional reconstructions were obtained of the arterial vasculature using volume rendering technique and maximal intensity projection technique as per departmental protocol. The protocol utilizes one or more of the following dose reduction techniques: automated exposure control, adjustment of mA and/or kV according to patient size,and/or use of iterative reconstruction technique. RADIATION DOSAGE (If Supplied By Facility): CTDIvol = ( 8.19 ) mGy, DLP = ( 1173.83 ) mGycm COMPARISON: Prior study dated: 01/27/2022 FINDINGS: LOWER CHEST: Lung bases are clear. No cardiomegaly or pericardial effusion. Coronary artery calcifications are seen. LIVER: The liver is normal in size, shape, and attenuation. No focal mass. GALLBLADDER AND BILIARY TREE: The gallbladder is normally distended. No CT/CTA Abd w/Runoff W/WO Contrast IMPRESSION: Infrarenal abdominal aortic aneurysm measuring 3 cm. This is mildly increased in size from previous. Additionally there is now peripheral noncalcified thrombosed portion. Follow-up is recommended every 3 years. Occluded right external iliac artery. Reconstitution of flow in the common femoral artery via collateral through the inferior epigastrics. There is also stenosis seen in the right superficial femoral artery, popliteal artery, and anterior tibial artery. The posterior tibial artery is not opacified. Occluded left common iliac artery, external iliac artery, and internal iliac artery. Reconstitution of flow distally at the common femoral artery region. Multifocal stenosis in the leg. Electronically Signed: Bryan Moctezuma MD at 14:19 EDT ,
[2024-04-09 13:31] LABS: CREATININE FINGERSTICK < 1.0 mg/dL (0.55-1.02); EGFR FINGERSTICK > 60.0000 mL/min (>60)
== END | disposition home or self-care (01) ==
LOC: CT 13:01
PROVIDERS: PCP Family Medicine; Referring Provider Physician Assistant; Visit Provider Physician Assistant
DX: I73.89 Other specified peripheral vascular diseases (principal); I74.5 Embolism and thrombosis of iliac artery; N28.1 Cyst of kidney, acquired; I71.43 Infrarenal abdominal aortic aneurysm, without rupture; I70.201 Unspecified atherosclerosis of native arteries of extremities, right leg
CPT/HCPCS: 75635; Q9967

== ENCOUNTER → 2024-05-17 | Outpatient (CLI) | payer MEDICARE, BC, SELFPAY ==
--- NOTE | 2024-05-17 10:08 | BI_ITS ---
MAMMOGRAPHY - BILATERAL SCREENING REASON FOR EXAM: Female, 68 years old. Routine annual screening examination. PERTINENT HISTORY: Aunt with breast cancer. Prior right stereotactic breast biopsy. TECHNIQUE: Digital bilateral breast alex (3D mammographic acquisition) in the CC and MLO projections. 2-D mediolateral oblique (MLO) and craniocaudad (CC) views of both breasts were obtained. CAD: Full Field Digital Mammography with Computer Added Detection was performed. COMPARISON: Comparison is made with prior study to May 14, 2023 and May 08, 2022. FINDINGS: Breast Composition: There are scattered areas of fibroglandular density. There are no dominant masses or suspicious calcifications. Stable fat-containing bilateral axillary lymph nodes. No other significant abnormalities are identified. There has been no significant change since the prior study. BI/SCREENING MAMM (CAD), BILAT IMPRESSION: Stable bilateral screening mammogram. Yearly follow-up mammogram recommended. (A) ASSESSMENT CATEGORY: BIRADS Category 2: Benign. A letter regarding these results will be sent to the patient by the facility within 30 days. Approximately 10% of breast cancers are not detected by mammography. A normal mammogram should not delay biopsy of a clinically suspicious abnormality. [id number] Electronically Signed: Omega Prather MD at 11:02 EDT ,
== END | disposition home or self-care (01) ==
LOC: OPBI 10:08
PROVIDERS: PCP Family Medicine; Referring Provider Family Medicine; Visit Provider Family Medicine
DX: Z12.31 Encounter for screening mammogram for malignant neoplasm of breast (principal)
CPT/HCPCS: 77067

== ENCOUNTER → 2024-06-14 | Outpatient (CLI) | payer MEDICARE, BC, SELFPAY ==
[2024-06-14 13:25] LABS: ALB/GLOB Ratio 0.9 RATIO (0.9-2.4); AST(SGOT) 33 U/L (15-37); Alanine Aminotransfer ALT/SGPT 24 U/L (13-56); Albumin, Serum 3.5 g/dL (3.2-5.0); Alkaline Phosphatase 129 U/L (45-117); Anion Gap 9 (5-15); BUN 6 mg/dL (7-18); BUN/Creat Ratio 6.9 RATIO (10-20); Calcium,Total 8.9 mg/dL (8.5-10.1); Chloride 100 mmol/L (98-107); Cholesterol 190 mg/dL (200); Creatinine, Serum 0.87 mg/dL (0.55-1.02); EST Glomerular Filtration Rate 68 mL/min (>60); Est Glom Filt Rate - Afr Amer 82 mL/min (>60); Globulin 3.9 g/dL (2.2-4.2); Glucose 98 mg/dL (74-106); High Density Lipoprotein 65 mg/dL; Potassium 3.6 mmol/L (3.5-5.1); Protein, Total 7.4 g/dL (6.4-8.2); Sodium Level 134 mmol/L (136-145); Triglycerides 99 mg/dL; Very Low Density Lipoprotein 20 mg/dL (5-40)
== END | disposition home or self-care (01) ==
LOC: MFPLAB 11:09
PROVIDERS: PCP Family Medicine; Visit Provider Family Medicine
DX: I10 Essential (primary) hypertension (principal)
CPT/HCPCS: 36415; 80053; 80061

== ENCOUNTER → 2024-12-16 | Outpatient (CLI) | payer MEDICARE, BC, SELFPAY ==
[2024-12-16 10:41] LABS: ALB/GLOB Ratio 1.3 RATIO (0.9-2.4); AST(SGOT) 32 U/L (<=31); Alanine Aminotransfer ALT/SGPT 18 U/L (<=34); Alkaline Phosphatase 119 U/L (35-104); Anion Gap 13 (5-15); BUN 6 mg/dL (4-19); BUN/Creat Ratio 7.5 RATIO (10-20); Calcium,Total 9.3 mg/dL (7.6-11.0); Carbon Dioxide 23.3 mmol/L (21.0-32.0); Chloride 96 mmol/L (98-108); Cholesterol 175 mg/dL (<=200); Creatinine, Serum 0.85 mg/dL (0.70-1.20); EST Glomerular Filtration Rate 73 (>60); Glucose 113 mg/dL (70-99); High Density Lipoprotein 61 mg/dL; Low Density Lipoprotein Calc. 94 mg/dL; Sodium Level 132 mmol/L (133-145); Total Bilirubin 0.54 mg/dL (0.00-1.30); Triglycerides 98 mg/dL; Very Low Density Lipoprotein 20 mg/dL (5-40); cholesterol:hdl ratio screen 2.85
== END | disposition home or self-care (01) ==
LOC: MFPLAB 09:18
PROVIDERS: PCP Family Medicine; Referring Provider Family Medicine; Visit Provider Family Medicine
DX: I10 Essential (primary) hypertension (principal)
CPT/HCPCS: 36415; 80053; 80061

== ENCOUNTER → 2025-04-06 | Outpatient (CLI) | payer MEDICARE, BC, SELFPAY ==
--- NOTE | 2025-04-06 08:44 | AAVD_ITS ---
Reason For Study Reason For Study: AAA Aorta Measurements Aorta Doppler Measurements Proximal aorta measures1.17 x 1.21cm. in cross-sectional Peak systolic flow velocities within the proximal aorta axis. measure 57.8 cm/sec. Proximal aorta measures1.26cm. in longitudinal axis. Peak systolic flow velocities within the mid aorta measure Mid aorta measures3.18 x 3.15cm. in cross-sectional axis. 57.8 cm/sec. Mid aorta measures3.16cm. in longitudinal axis. Peak systolic flow velocities within the distal aorta Distal aorta measures2.30 x 2.38cm. in cross-sectional axis.measure 34.3 cm/sec. Distal aorta measures2.28cm. in longitudinal axis. Mural thrombus noted in the mid aorta. Left Iliac Artery Left iliac artery measures 0.70 x 0.70 cm. in the cross-sectional axis. Left iliac artery measures 0.71 cm. in the longitudinal axis. Peak systolic velocity in the left iliac artery measures 103.1 cm/sec. Right Iliac Artery Right iliac artery measures 0.85 x 0.81 cm. in the cross-sectional axis. Right iliac artery measures 0.78 cm. in the longitudinal axis. Peak systolic velocity in the right iliac artery measures 65.1 cm/sec. VL/Abd Aortic/IVC Duplex scan Interpretation Summary Aorta patent, 3.18 cm aneurysm present. Bilateral iliac arteries patent, normal caliber. Ordering Physician: Tony Andres Referring Physician: Mk Beltrán Performed By: Beena Nickerson RVT
== END | disposition home or self-care (01) ==
LOC: CVS 08:44
PROVIDERS: PCP Family Medicine; Referring Provider Surgery Trauma Surgery; Visit Provider Surgery Trauma Surgery
DX: I71.43 Infrarenal abdominal aortic aneurysm, without rupture (principal)
CPT/HCPCS: 93978

== ENCOUNTER → 2025-05-18 | Outpatient (CLI) | payer MEDICARE, BC, SELFPAY ==
--- NOTE | 2025-05-18 13:59 | RAD_ITS ---
PROCEDURE: HIP, UNI W/ PELVIS 2-3 VIEWS 05/18/2025 REASON FOR EXAM: LEFT HIP PAIN TECHNIQUE: Procedure Code: RAD Modality: DX Procedure: HIP, UNI W/ PELVIS 2-3 VIEWS Laterality: Left COMPARISON: None FINDINGS: The pelvis is intact. Sacroiliac joints and symphysis pubis are intact. The right hip joint is intact. Minimal degenerative change is noted involving the left hip joint. No acute fracture or dislocation. Atherosclerotic vascular calcifications overlie the pelvis and thighs, spae-[id number]-orkn-right. RAD/HIP, UNI W/ Pelvis 2-3 Views IMPRESSION: Minimal degenerative change involving the left hip. No acute bony abnormality. Reading Location: [facility]
--- OUTSIDE RECORDS SUMMARY | 2025-05-18 20:57 | XMS RPT_ITS | CCD ---
Author Organization [facility] Care Team Providers Care Medical Reviewer Name Role Phone Dr. Mk Renae Primary Care Provider Dr. Mk Renae Referring Provider [phone] Dr. Jaclyn Boyle Attending Provider Unavailable Primary Care Provider Unavailabl e Unavailable Primary Care Provider Unavailabl e SELF Referring Unavailable MK RENAE Primary Care Unavailable JAZLYN MORGAN Attending Unavailable Mk Renae MD Primary Care Provider Jerel OTOOLE, Dr. Terrazas Primary Care Provider Jerel OTOOLE, Dr. Terrazas Attending Provider [phone] Jerel OTOOLE, Dr. Terrazas Referring Provider Dr. Tony Andres MD Attending Provider Dmitry OTOOLE, Dr. Jimenez Referring Provider Mk Renae Primary Care Unavailable Mk Renae Attending Unavailable Jerel, Mk Referring Unavailable Renae, Mk Primary Care Unavailable Renae, Mk Attending Unavailable Renae, Mk Primary Care Unavailable Renae, Mk Attending Unavailable Renae, Mk Referring Unavailable Renae, Mk Primary Care Unavailable Renae, Mk Attending Unavailable Renae, Mk Referring Unavailable Jerel, Mk Primary Care Unavailable Tony Andres Attending Unavailable Tony Andres Referring Unavailable Jerel, Mk Primary Care Unavailable Tony Andres Attending Unavailable Jerel, Mk Referring Unavailable Jerel, Mk Primary Care Unavailable Tony Andres Attending Unavailable Tony Andres Referring Unavailable Medications Current Medications Medication Drug Class(es) Dates Sig (Normalized) Sig (Original) amLODIPine 10 mg oral tablet (3 sources) Dihydropyridine Calcium Channel Usha Start: 03-23-2024 take 1 tablet by mouth once daily Amlodipine (Norvasc) 10 mg tablet Active 10 mg PO DAILY March 23, 2024 12:00am aspirin 81 mg delayed release oral tablet (3 sources) Platelet Aggregation Inhibitor, Nonsteroidal Anti-inflammatory Drug Start: 03-23-2024 take 1 tablet by mouth once daily Aspirin (Adult Aspirin Regimen) 81 mg tablet,delayed release (DR/EC) Active 81 mg PO DAILY 30 0 March 23, 2024 12:00am Calcium Carbonate / vitamin D3 (2 sources) calcium carbonate/vitami n D3 (CALTRATE 600 PLUS D ORAL) Take by mouth. Active carvedilol 12.5 mg oral tablet (20 sources) alpha-Adrenergic Usha, beta-Adrenergic Usha Start: 03-23-2024 take 1 tablet by mouth twice daily Carvedilol 12.5 mg tablet Active 12.5 mg PO TWICE A DAY March 23, 2024 10:09am Start: 01-31-2022 Carvedilol Act rivera 6.25 MG PO TWICE A DAY January 31, 2022 1:08am Hold for heart rate less than 60/min or systolic blood pressure less than 120 mmHg. Start: 03-05-2020 End: 03-23-2024 Carvedilol 12.5 MG tablet Di scontinued 6.25 mg PO TWICE A DAY January 31, 2022 1:08am March 23, 2024 10:11am Hold for heart rate less than 60/min or systolic blood pressure less than 120 mmHg. cetirizine hydrochloride 10 mg oral tablet (2 sources) Histamine-1 Receptor Antagonist take 1 tablet by mouth once daily cetirizine (ZYRTEC) 10 mg tablet Take 10 mg by mouth once daily. Active cilostazol 100 mg oral tablet (6 sources) Phosphodiesterase 3 Inhibitor Start: 04-29-20 End: 05-06-20 take 1 tablet by mouth twice daily Cilostazol 100 mg tablet Active 100 mg PO TWICE A DAY 180 3 May 06, 2024 5:21pm Start: 03-23-2024 End: 04-29-2024 take 1 tablet by mouth twice daily Cilostazol 50 mg tablet Discontinued 50 mg PO TWICE A DAY 60 2 March 23, 2024 12:00am April 29, 2024 4:43pm iv contrast (will be provided with radiology test) (1 source) Start: 06-07-2024 End: 06-08-2024 inject 1 dose intravenously once iv contrast (will be provided with radiology test) CTA ABD/PEL LE - No IV access, insert saline lock prior to the sedation, infusion, injection for imaging exam. Discontinue saline lock post exam. If Pt. has a central line or IVAD, may access for administration according to line specific nursing protocol. Once exam is complete flush line and de-access according to line specific nursing protocol in the CT contrast administration guidelines link. 1 Each 06/07/2024 06/08/2024 Active Multivitamin (Daily Multi-Vitamin) tablet (1 source) Start: 03-23-2024 Multivitamin (Daily Multi-Vitamin) tablet Active 1 {tbl} PO DAILY March 23, 2024 12:00am mv-mn/folic ac/calcium/vit K1 (WOMEN'S 50 PLUS MULTIVITAMIN ORAL) (2 sources) mv-mn/folic ac/calcium/vit K1 (WOMEN'S 50 PLUS MULTIVITAMIN ORAL) Take by mouth. Active omeprazole 20 mg delayed release oral capsule (11 sources) Proton Pump Inhibitor Start: 03-04-2020 take 1 capsule by mouth once daily Omeprazole 20 MG capsule Active 20 mg PO DAILY March 04, 2020 12:00am take 1 tablet by mouth once gogo y omeprazole 20 mg disintegrating tablet (PriLOSEC) Take 20 mg by mouth once daily. Active Completed/Discontinued Medications Medication Drug Class(es) Dates Sig (Normalized) Sig (Original) acetaminophen 325 mg / oxyCODONE hydrochloride 5 mg oral tablet (8 sources) Opioid Agonist Start: 01-31-2022 End: 03-23-2024 Oxycodone-Acetaminop hen (Endocet) 5-325 mg tablet Discontinued 1 {tbl} PO EVERY 6 HOURS as needed for pain 12 3 0 January 31, 2022 March 23, 2024 10:11am Biliary colic Calculus of bile duct without cholangitis or cholecystitis without obstruction atorvastatin 40 mg oral tablet (17 sources) HMG-CoA Reductase Inhibitor Start: 01-31-2022 End: 03-23-2024 Atorvastatin 40 MG tablet Discontinued 20 mg PO AT BEDTIME January 31, 2022 1:08am March 23, 2024 10:10am Start: 01-31-2022 take 20 mg by mouth at bedtime Atorvastatin Active 20 MG PO AT BEDTIME January 31, 2022 1:08am Start: 03-05-2020 End: 01-31-2022 take 1 tablet by mouth at bedtime Atorvastatin 40 MG tablet Discontinued 40 mg PO AT BEDTIME 30 0 March 05, 2020 12:00am January 31, 2022 1:08am dicyclomine hydrochloride 20 mg oral tablet (9 sources) Anticholinergic Start: 01-27-2022 End: 03-23-2024 take 1 tablet by mouth three times daily Dicyclomine 20 mg tablet Discontinued 20 mg PO THREE TIMES A DAY 10 January 27, 2022 12:00am March 23, 2024 10:10am hydroCHLOROthiazide 25 mg oral tablet (9 sources) Thiazide Diuretic Start: 03-04-2020 End: 03-23-2024 take 1 tablet by mouth once daily Hydrochlorothiazide 25 MG tablet Discontinued 25 mg PO DAILY March 04, 2020 12:00am March 23, 2024 10:11am ondansetron 4 mg disintegrating oral tablet (17 sources) Serotonin-3 Receptor Antagonist Start: 01-27-2022 End: 03-23-2024 take 1 tablet by mouth every eight hours as needed for nausea and vomiting Ondansetron 4 mg tablet,disintegrating Discontinued 4 mg PO Q8H as needed for nausea and vomiting 21 January 31, 2022 12:00am March 23, 2024 10:11am psyllium 3400 mg powder for oral suspension (9 sources) Start: 03-05-2020 End: 03-23-2024 take 1 dose by mouth once daily Psyllium Husk 1 PACKET packet Discontinued 1 NMA PO DAILY 0 March 05, 2020 12:00am March 23, 2024 10:11am Start: 03-05-2020 Psyllium Husk (Aspartame) Active 1 PACKET PO DAILY March 05, 2020 12:00am ramipril 5 mg oral capsule (9 sources) Angiotensin Converting Enzyme Inhibitor Start: 03-04-2020 End: 03-23-2024 take 1 capsule by mouth once daily Ramipril 5 MG capsule Discontinued 5 mg PO DAILY March 04, 2020 12:00am March 23, 2024 10:11am Problems Active Problems Problem Classification Problem Date Documented Date Episodic/Chronic Abdominal pain (18 sources) Finding of sensation of abdomen; Translations: [Unspecified abdominal pain] 02-04-2022 Episodic Aortic; peripheral; and visceral artery aneurysms (7 sources) Abdominal aortic aneurysm without rupture; Translations: [Abdominal aortic aneurysm (AAA) without rupture, unspecified part (HCC)] Onset: 06-07-2024 06-07-2024 Chronic Biliary tract disease (8 sources) Biliary colic; Translations: [Calculus of bile duct without cholangitis or cholecystitis without obstruction] 02-08-2022 Episodic Chronic obstructive pulmonary disease and bronchiectasis (5 sources) Centriacinar emphysema; Translations: [Centrilobular emphysema] Onset: 06-07-2024 06-07-2024 Chronic Esophageal disorders (13 sources) Gastroesophageal reflux disease; Translations: [Gastro-esophageal reflux disease without esophagitis] Onset: 06-07-2024 Chronic Essential hypertension (16 sources) Hypertensive disorder; Translations: [Essential (primary) hypertension] Onset: 06-07-2024 Chronic Fluid and electrolyte disorders (18 sources) Hyponatremia; Translations: [Hypo-osmolality and hyponatremia] 03-06-2020 Episodic Genitourinary symptoms and ill-defined conditions (9 sources) Blood in urine; Translations: [Hematuria, unspecified] 03-04-2020 Episodic Hypertension with complications and secondary hypertension (9 sources) Hypertensive urgency 05-20-2022 Chronic Nausea and vomiting (9 sources) Nausea and vomiting; Translations: [Nausea with vomiting, unspecified] 02-04-2022 Episodic Occlusion or stenosis of precerebral arteries (1 source) Bilateral stenosis of carotid arteries; Translations: [Occlusion and stenosis of bilateral carotid arteries] 06-07-2024 Chronic Other connective tissue disease (1 source) Pain in lower limb Onset: 04-13-2024 Episodic Other screening for suspected conditions (not mental disorders or infectious disease) (3 sources) Patient encounter status; Translations: [Encounter for screening for cardiovascular disorders] Onset: 06-14-2024 06-07-2024 Episodic Peripheral and visceral atherosclerosis (12 sources) Intermittent claudication due to atherosclerosis of artery of limb; Translations: [Atherosclerosis of iroquois arteries of extremities with intermittent claudication, unspecified extremity] Onset: 06-07-2024 06-07-2024 Chronic Unclassified (1 source) Infrarenal abdominal aortic aneurysm, without rupture; Translations: [Infrarenal abdominal aortic aneurysm, without rupture] Onset: 04-15-2025 Viral infection (9 sources) Postherpetic neuralgia; Translations: [Other postherpetic nervous system involvement] Episodic Past or Other Problems Problem Classification Problem Date Documented Da te Episodic/Chronic Unclassified (9 sources) Hypotonic hyponatremia 05-20-2022 Results Test Name Value Interpretation Reference Range Facility Abd Aortic/IVC Duplex scanon 04-06-2025 Abd Aortic/IVC Duplex scan [facility] [place] [address] Abd Aortic/IVC Duplex scan 04/06/25 0852 MR#: [id number] Acct: [id number] Name: AGNIESZKA SIMPSON Rep #: [id number] : 1955 69 From: Tony Andres MD Attending Dr: Dr. Tony Andres MD Status: ALIZA GRAHAM Ordering Dr: Tony Andres MD Date: 04/06/25 Location: [facility] Sex: F C Admitted: Reason For Study Reason For Study: AAA Aorta Measurements Aorta Doppler Measurements Proximal aorta measures1.17 x 1.21cm. in cross-sectional Peak systolic flow velocities within the proximal aorta axis. measure 57.8 cm/sec. Proximal aorta measures1.26cm. in longitudinal axis. Peak systolic flow velocities within the mid aorta measure Mid aorta measures3.18 x 3.15cm. in cross-sectional axis. 57.8 cm/sec. Mid aorta measures3.16cm. in longitudinal axis. Peak systolic flow velocities within the distal aorta Distal aorta measures2.30 x 2.38cm. in cross-sectional axis.measure 34.3 cm/sec. Distal aorta measures2.28cm. in longitudinal axis. Mural thrombus noted in the mid aorta. Left Iliac Artery Left iliac artery measures 0.70 x 0.70 cm. in the cross-sectional axis. Left iliac artery measures 0.71 cm. in the longitudinal axis. Peak systolic velocity in the left iliac artery measures 103.1 cm/sec. Right Iliac Artery Right iliac artery measures 0.85 x 0.81 cm. in the cross-sectional axis. Right iliac artery measures 0.78 cm. in the longitudinal axis. Peak systolic velocity in the right iliac artery measures 65.1 cm/sec. VL/Abd Aortic/IVC Duplex scan Interpretation Summary Aorta patent, 3.18 cm aneurysm present. Bilateral iliac arteries patent, normal caliber. __ Ordering Physician: Tony Andres Referring Physician: Mk Renae Performed By: Beena Nickerson, RVT 04/06/25925 Date Tony Andres MD CC: Dr. Tony Andres MD; Dr. Mk Renae MD Date Dictated: 04/06/25851 Date Transcribed: 04/06/25925 [employer] Operator: Signed Normal [facility] Abdominal aortic duplex scan reportOrdered By: Tony Andres on 04-06-2025 US.doppler Thoracic and abdominal aorta [facility] [address] [place] [address] Abd Aortic/IVC Duplex scan 04/06/25851 MR#: [id number] Acct: [id number] Name: AGNIESZKA SIMPSON Rep #:[id number] : 1955 69 From: Tony Dejesus Attending Dr: Dr. Tony Andres MD S tatus: REG CLI Ordering Dr: Tony Andres MD Date: 02/23 Location: [facility] Sex: F C Admitted: Reason For Study Reason For Study: AAA Aorta Measurements Aorta Doppler Measurements Proximal aorta measures1.17 x 1.21cm. in cross-sectional Peak systolic flow velocities within the proximal aorta axis. measure 57.8 cm/sec. Proximal aorta measures1.26cm. in longitudinal axis. Peak systolic flow velocities within the mid aorta measure Mid aorta measures3.18 x 3.15cm. in cross-sectional axis. 57.8 cm/sec. Mid aorta measures3.16cm. in longitudinal axis. Peak systolic flow velocities within the distal aorta Distal aorta measures2.30 x 2.38cm. in cross-sectional axis.measure 34.3 cm/sec. Distal aorta measures2.28cm. in longitudinal axis. Mural thrombus noted in the mid aorta. Left Iliac Artery Left iliac artery measures 0.70 x 0.70 cm. in the cross-sectional axis. Left iliac artery measures 0.71 cm. in the longitudinal axis. Peak systolic velocity in the left iliac artery measures 103.1 cm/sec. Right Iliac Artery Right iliac artery measures 0.85 x 0.81 cm. in the cross-sectional axis. Right iliac artery measures 0.78 cm. in the longitudinal axis. Peak systolic velocity in the right iliac artery measures 65.1 cm/sec. VL/Abd Aortic/IVC Duplex scan Interpretation Summary Aorta patent, 3.18 cm aneurysm present. Bilateral iliac arteries patent, normal caliber. __ Ordering Physician: Tony Andres Referring Physician: Mk Renae Performed By: Beena Nickerson RVT 04/06/25925 Date _ Tony Andres MD CC: Dr. Tony Andres MD; Dr. Mk Renae MD ~ Date Dictated: 04/06/25851 Date Transcribed: 04/06/25925 [employer] Operator: Signed [facility] Work Phone: /Gume 2024 /DEAN [facility] Vascular Surgery [address] [place] [address]. [address] [place] [address] OFFICE VISIT Date of Service: 12/30/24 MR#: [id number] Acct: [id number] Name: AGNIESZKA SIMPSON Rep #: [id number] : 1955 Provider: Dr. Tony Andres MD Age/Sex: 69/F Location: [facility] Status: Signed Intake Vital Signs 05/06/24 16:00 12/30/24 12:56 Height 5 ft 5 in Weight: 163 lb BP 132/83 H Blood Pressure Location Lt brachial Position Sitting Respiration 16 Pulse 76 Pulse Source Monitor Temp 98.2 F Temp Source Temporal Pulse Oximetry (%) 100 Oxygen Delivery Method room air Intake Visit Reasons: 8 M FU Chief Complaint: PAD Is patient in pain?: No Allergies No Known Allergies Allergy (Verified 12/30/24 12:57) Medications ???Medication ???Instructions ???Recorded ???Confirmed ???Type omeprazole 20 mg capsule,delayed 20 mg PO DAILY 03/04/20 12/30/24 H istory release amlodipine 10 mg tablet (Norvasc) 10 mg PO DAILY 03/23/24 12/30/24 History aspirin 81 mg tablet,delayed 81 mg PO DAILY #30 tabs 03/23/24 0 12/30/24 Rx release (Adult Aspirin Regimen) carvedilol 12.5 mg tablet 12.5 mg PO BID 03/23/24 12/30/24 H istory multivitamin (Daily Multi-Vitamin 1 tab PO DAILY 03/23/24 12/30/24 History tablet) cilostazol 100 mg tablet 100 mg PO BID #180 tabs 05/06/24 0 12/30/24 Rx Is last menstrual period known: No Post menopausal: Yes Patient : No Have you fallen in the past year?: No PFSH Medical History Hypertension Hypotonic hyponatremia Hypertensive urgency Surgical History Hx of foot surgery H/O: hysterectomy ( 2000) Family History Mother Hypertension Kidney disease Thyroid disorder Stomach ulcer Social History Smoking Status: Heavy Smoker (>10/day) alcohol intake: current alcohol intake frequency: 0-2 drinks per day Alcohol type: hard liquor HPI HPI HPI: AGNIESZKA SIMPSON, is a 69 F who presents to the office today for follow up of bilateral LE claudication, small AAA. She has recently returned from wintering in [place]. Overall legs doing about the same and symptoms not severe enough for her to want to pursue open surgery that would be needed to address AAA and iliac occlusions. Denies rest pain, foot wounds. She has been taking Pletal once daily; briefly was taking twice a day though she had diarrhea which was limiting activities for her. ROS General General: Yes weight change and fatigue; No appetite, colon cancer, breast cancer or weakness HEENT HEENT: No difficulty swallowing, eye injury, eye surgery, swollen glands or hoarseness Endo Endocrine: No thyroid disease, diabetes mellitus, thyroid cancer, Hair loss, heat intolerance or cold intolerance Skin Skin: No rash or changing moles Musc Musculoskeletal: No back problems, arthritis, rheumatoid arthritis, gout or joint pain Cardio Cardiovascular: Yes high blood pressure; No murmur, pacemaker, heart disease, atrial fibrillation, heart attack, heart stent, palpitations, shortness of breath with exertion or chest pain Psych Psychiatric: No depression, anxiety or hearing voices Resp Respiratory: No shortness of breath, No sleep apnea, No cough, No COPD, No asthma, No emphysema and No wheezing Gastro Gastrointestinal: No abdominal pain, No nausea or vomiting, No diarrhea, No constipation, No blood in stool, No acid reflux, No hemorrhoids, No ulcers, No gallbladder problem and No black,tarry stools Ian Hematologic: Yes blood thinners, No blood disorders, No bleeding, No anemia and No blood clots Additional Details: asa Neuro Neurologic: No system reviewed and no additional complaints, except as documented, No as per HPI, No abnormal gait, No abnormal hearing, No abnormal movements, No abnormal speech, No behavioral changes, No burning sensations, No confusion, No convulsions, No disequilibrium, No dizziness, No localized weakness, No frequent falls, No headache(s), No lack of coordination, No loss of vision, No memory loss, No numbness, No other visual disturbances, No radicular pain, No restless legs, No sensory deficit, No syncope, No tingling, No tremor(s), No weakness and No other Exam Const General: cooperative, healthy appearing, comfortable, no acute distress and well developed Nutritional Appearance: well nourished Orientation: alert, awake and oriented x3 HENMT Head: normocephalic and atraumatic Ears: hearing grossly normal bilaterally Nose: external nose normal Eyes General: appearance normal, both eyes and all related structures EOM: EOM intact bilater (more content not included)... Normal [facility] Anion gap in Serum or Plasma Ordered By: Mk Renae on 12-16-2024 Anion gap [Moles/Vol] 13 mmol/L 5-15 [facility] BUN/creatinine ratioOrdered By: Mk Renae on 12-16-2024 Urea nitrogen/Creatinine [Mass ratio] 7.5 mg/mg Low 10-20 [facility] Bilirubin, totalOrdered By: Mk Renae on 12-16-2024 Bilirubin [Mass/Vol] 0.54 mg/dL 0.00-1.30 [facility] Calculated very low density lipoprotein (VLDL) cholesterol measurementOrdered By: Mk Renae on 12-16-2024 Calculated very low density lipoprotein (VLDL) cholesterol measurement 20 mg/dL 5-40 [facility] Carbon dioxide, total [Moles /volume] in Central venous bloodOrdered By: Mk Renae on 12-16-2024 CO2 [Moles/Vol] 23.3 mmol/L 21.0-32.0 [facility] Chloride assayOrdered By: Faizan Renae on 12-16-2024 Chloride [Moles/Vol] 96 mmol/L Low 98-108 [facility] Comprehensive Metabolic Prof ilon 12-16-2024 Albumin [Mass/Vol] 4.0 g/dL Normal 3.4-4.[address] [facility] Comment on above: Performed By: #### L 500.4050, L500.4100 #### [facility] [address] [place], [address] Albumin/Globulin [Mass ratio] 1.3 {ratio} Normal 0.9-2.4 [facility] Comment on above: Performed By: #### L 500.4050, L500.4100 #### [facility] [address] [place], [address] ALK PHOS 119 U/L High 35-104 [facility] Comment on above: Performed By: #### L 500.4050, L500.4100 #### [facility] [address] [place], [address] ALT [Catalytic activity/Vol] 18 U/L Normal <=34 [facility] Comment on above: Performed By: #### L 500.4050, L500.4100 #### [facility] [address] [place], [address] AST [Catalytic activity/Vol] 32 U/L Normal <=31 [facility] Comment on above: Performed By: #### L 500.4050, L500.4100 #### [facility] [address] [place], [address] Bilirubin [Mass/Vol] 0.54 mg/dL Normal 0.00-1.30 [facility] Comment on above: Performed By: #### L 500.4050, L500.4100 #### [facility] [address] [place], [address] BUN/CRE 7.5 RATIO Low 10-20 [facility] Comment on above: Performed By: #### L 500.4050, L500.4100 #### [facility] [address] [place], [address] Calcium [Mass/Vol] 9.3 mg/dL Normal 7.6-11.[address] [facility] Comment on above: Performed By: #### L 500.4050, L500.4100 #### [facility] [address] [place], [address] Chloride [Moles/Vol] 96 mmol/L Low 98-108 [facility] Comment on above: Performed By: #### L 500.4050, L500.4100 #### [facility] [address] [place], [address] CO2 [Moles/Vol] 23.3 mmol/L Normal 21.0-32.0 [facility] Comment on above: Performed By: #### L 500.4050, L500.4100 #### [facility] [address] [place], [address] Creatinine [Mass/Vol] 0.85 mg/dL Normal 0.70-1.20 [facility] Comment on above: Performed By: #### L 500.4050, L500.4100 #### [facility] [address] [place], [address] GAP 13 Normal 5-15 [facility] Comment on above: Performed By: #### L 500.4050, L500.4100 #### [facility] [address] [place], [address] GFR/1.73 sq M.predicted among non-blacks MDRD (S/P/Bld) [Vol rate/Area] 73 mL/min/{1.73_m2} Normal >60 [facility] Comment on above: Result Comment: mL/m in/1.73m2 CKD-EPI Creatinine Equation (2020) Performed By: #### L 500.4050, L500.4100 #### [facility] [address] [place], [address] Globulin (S) [Mass/Vol] 3.0 g/dL Normal 2.2-4.2 [facility] Comment on above: Performed By: #### L 500.4050, L500.4100 #### [facility] [address] [place], [address] Glucose [Mass/Vol] 113 mg/dL High 70-[address] [facility] Comment on above: Performed By: #### L 500.4050, L500.4100 #### [facility] [address] [place], [address] Potassium [Moles/Vol] 4.0 mmol/L Normal 3.3-5.1 [facility] Comment on above: Performed By: #### L 500.4050, L500.4100 #### [facility] [address] [place], [address] Sodium [Moles/Vol] 132 mmol/L Low 133-[address] [facility] Comment on above: Performed By: #### L 500.4050, L500.4100 #### [facility] [address] [place], [address] T PROT 7.0 g/dL Normal 5.9-8.4 [facility] Comment on above: Performed By: #### L 500.4050, L500.4100 #### [facility] [address] [place], [address] Urea nitrogen [Mass/Vol] 6 mg/dL Normal 4-19 [facility] Comment on above: Performed By: #### L 500.4050, L500.4100 #### [facility] [address] [place], [address] Glomerular filtration rate ( GFR) estimation/1.73 sq m using serum, plasma, or whole bOrdered By: Mk Renae on 12-16-2024 GFR/1.73 sq M.predicted among non-blacks MDRD (S/P/Bld) [Vol rate/Area] 73 mL/min/{1.73_m2} >60 [facility] Comment on above: mL/min/1.73m2 CKD-EP I Creatinine Equation (2020) LDL calc ser/plasOrdered By: Mk Renae on 12-16-2024 Cholesterol in LDL [Mass/Vol] 94 mg/dL [facility] Comment on above: Qllaxsyauj=356-036 m g/dL & Higher Yrwj=104 mg/dL or greater Laboratory - Chemistry and C hemistry - challengeOrdered By: Mk Renae on 12-16-2024 AST [Catalytic activity/Vol] 32 U/L <32 [facility] Lipid Profileon 12-16-2024 CHOL:HDL 2.85 Normal [facility] Comment on above: Performed By: #### L 500.4050, L500.4100 #### [facility] [address] [place], [place] [address] Cholesterol [Mass/Vol] 175 mg/dL Normal <=200 [facility] Comment on above: Result Comment: Chol esterol level, Desirable <200 mg/dL Borderline high cholesterol 200-239 mg/dL High cholesterol >=240 mg/dL Recommendations of the NCEP Adult Treatment Panel for the following risk-cutoff thresholds for the [place] population. Performed By: #### L 500.4050, L500.4100 #### [facility] [address] [place], [address] Cholesterol in HDL [Mass/Vol] 61 mg/dL Normal [facility] Comment on above: Result Comment: Barbara onal Cholesterol Education Program (NCEP) guidelines: <40 mg/dL: Low HDL-cholesterol (major risk factor for CHD) >= 60 mg/dL: High HDL-cholesterol (negative risk factor for CHD) HDL-cholesterol is affected by a number of factors, e.g. smoking, exercise, hormones, sex and age. Performed By: #### L 500.4050, L500.4100 #### [facility] [address] [place], [address] Cholesterol in LDL [Mass/Vol] 94 mg/dL Normal [facility] Comment on above: Result Comment: Bord afulyl=571-452 mg/dL Higher Xxuw=249 mg/dL or greater Performed By: #### L 500.4050, L500.4100 #### [facility] [address] [place], [address] Cholesterol in VLDL [Mass/Vol] 20 mg/dL Normal 5-40 [facility] Comment on above: Performed By: #### L 500.4050, L500.4100 #### [facility] [address] [place], [address] Triglyceride [Mass/Vol] 98 mg/dL Normal [facility] Comment on above: Result Comment: The drugs N-Acetylcysteine and Metamizole may falsely depress this assay. Normal range: <150 mg/dL Borderline High: 150-199 mg/dL High: 200-499 mg/dL Very High: >500 mg/dL Performed By: #### L 500.4050, L500.4100 #### [facility] [address] [place], [place], [address] Potassium measurement (mass/ volume)Ordered By: Mk Renae on 12-16-2024 Potassium (Unsp spec) [Mass/Vol] 4.0 mmol/L 3.3-5.1 [facility] Screening total cholesterol/ high density lipoprotein (HDL) cholesterol ratioOrdered By: Mk Renae on 12-16-2024 Cholesterol.total/Shena sterol in HDL [Mass ratio] 2.85 {ratio} [facility] Serum creatinine measurement (mass/volume)Ordered By: Mk Renae on 12-16-2024 Creatinine [Mass/Vol] 0.85 mg/dL 0.70-1.20 [facility] Serum globulin measurementOr dered By: Mk Renae on 12-16-2024 Globulin (S) [Mass/Vol] 3.0 g/dL 2.2-4.2 [facility] Serum glucose measurement (m ass/volume)Ordered By: Mk Renae on 12-16-2024 Glucose [Mass/Vol] 113 mg/dL High 70-[address] [facility] Serum or plasma alanine garcía otransferase (ALT) measurementOrdered By: Mk Renae on 12-16-2024 ALT [Catalytic activity/Vol] 18 U/L <35 [facility] Serum or plasma albumin janet urement (mass/volume)Ordered By: Mk Renae on 12-16-2024 Albumin [Mass/Vol] 4.0 g/dL 3.4-4.[address] [facility] Serum or plasma albumin/glob ulin mass ratioOrdered By: Mk Renae on 12-16-2024 Albumin/Globulin [Mass ratio] 1.3 {ratio} 0.9-2.4 [facility] Serum or plasma alkaline tiffani sphatase measurementOrdered By: Mk Renae on 12-16-2024 ALP [Catalytic activity/Vol] 119 U/L High 35-104 [facility] Serum or plasma calcium janet urement (mass/volume)Ordered By: Mk Renae on 12-16-2024 Calcium [Mass/Vol] 9.3 mg/dL 7.6-11.[address] [facility] Serum or plasma cholesterol in HDL measurement (mass/volume)Ordered By: Mk Renae on 12-16-2024 Cholesterol in HDL [Mass/Vol] 61 mg/dL >40 [facility] Comment on above: National Cholesterol Education Program (NCEP) guidelines:<40 mg/dL: Low HDL-cholesterol (major risk factor for CHD)>= 60 mg/dL: High HDL-cholesterol (negative risk factor for CHD)HDL-cholesterol is affected by a number of factors, e.g. smoking, exercise, hormones, sex and age. Serum or plasma cholesterol measurement (mass/volume)Ordered By: Mk Renae on 12-16-2024 Cholesterol [Mass/Vol] 175 mg/dL <201 [facility] Comment on above: Cholesterol level, D esirable <200 mg/dLBorderline high cholesterol 200-239 mg/dLHigh cholesterol >=240 mg/dLRecommendations of the NCEP Adult Treatment Panel for the following risk-cutoff thresholds for the [place] population. Serum or plasma urea nitroge n measurement (mass/volume)Ordered By: Mk Renae on 12-16-2024 Urea nitrogen [Mass/Vol] 6 mg/dL 4-19 [facility] Sodium levelOrdered By: Mk Renae on 12-16-2024 Sodium [Moles/Vol] 132 mmol/L Low 133-[address] [facility] Total proteinOrdered By: Hayley Renae on 12-16-2024 Protein [Mass/Vol] 7.0 g/dL 5.9-8.[address] [facility] Triglycerides measurementOrd ered By: Mk Renae on 12-16-2024 Triglyceride [Mass/Vol] 98 mg/dL <199 [facility] Comment on above: The drugs N-Acetylcy steine and Metamizole may falsely depress this assay. Normal range: <150 mg/dLBorderline High: 150-199 mg/dLHigh: 200-499 mg/dLVery High: >500 mg/dL Comprehensive Metabolic Prof ilon 06-14-2024 Albumin [Mass/Vol] 3.5 g/dL Normal 3.2-5.[address] [facility] Comment on above: Performed By: #### L 500.4100, L500.4050 #### [facility] [address] [place], [address] Albumin/Globulin [Mass ratio] 0.9 {ratio} Normal 0.9-2.4 [facility] Comment on above: Performed By: #### L 500.4100, L500.4050 #### [facility] [address] [place], [address] ALK P 129 U/L High 45-117 [facility] Comment on above: Performed By: #### L 500.4100, L500.4050 #### [facility] [address] [place], [address] ALT [Catalytic activity/Vol] 24 U/L Normal 13-56 [facility] Comment on above: Performed By: #### L 500.4100, L500.4050 #### [facility] [address] [place], [address] AST [Catalytic activity/Vol] 33 U/L Normal 15-37 [facility] Comment on above: Performed By: #### L 500.4100, L500.4050 #### [facility] [address] [place], [address] Bilirubin [Mass/Vol] 0.50 mg/dL Normal 0.20-1.00 [facility] Comment on above: Result Comment: For patients on eltrombopag therapy, use of Dimension [place] TBIL is not recommended. Performed By: #### L 500.4100, L500.4050 #### [facility] [address] [place], [address] BUN/CRE 6.9 RATIO Low 10-20 [facility] Comment on above: Performed By: #### L 500.4100, L500.4050 #### [facility] [address] [place], [address] CA,Total 8.9 mg/dL Normal 8.5-10.1 [facility] Comment on above: Performed By: #### L 500.4100, L500.4050 #### [facility] [address] [place], [address] Chloride [Moles/Vol] 100 mmol/L Normal 98-107 [facility] Comment on above: Performed By: #### L 500.4100, L500.4050 #### [facility] [address] [place], [address] CO2 [Moles/Vol] 25.0 mmol/L Normal 21.0-32.0 [facility] Comment on above: Performed By: #### L 500.4100, L500.4050 #### [facility] [address] [place], [address] Creatinine [Mass/Vol] 0.87 mg/dL Normal 0.55-1.02 [facility] Comment on above: Result Comment: The validity of the calculated GFR GFRAA in patients over 70 years has not been determined. Clinical correlation is essential. Performed By: #### L 500.4100, L500.4050 #### [facility] [address] [place], [address] EST GFR - AA 82 mL/min Normal >60 [facility] Comment on above: Result Comment: Afri can Marshallese GFR Calc Performed By: #### L 500.4100, L500.4050 #### [facility] [address] [place], [address] GAP 9 Normal 5-15 [facility] Comment on above: Performed By: #### L 500.4100, L500.4050 #### [facility] [address] [place], [address] GFR/1.73 sq M.predicted among non-blacks MDRD (S/P/Bld) [Vol rate/Area] 68 mL/min/{1.73_m2} Normal >60 [facility] Comment on above: Result Comment: Non- GFR Calc Performed By: #### L 500.4100, L500.4050 #### [facility] [address] [place], [address] Globulin (S) [Mass/Vol] 3.9 g/dL Normal 2.2-4.2 [facility] Comment on above: Performed By: #### L 500.4100, L500.4050 #### [facility] [address] [place], [address] Glucose [Mass/Vol] 98 mg/dL Normal 74-[address] [facility] Comment on above: Performed By: #### L 500.4100, L500.4050 #### [facility] [address] [place], [address] Potassium [Moles/Vol] 3.6 mmol/L Normal 3.5-5.1 [facility] Comment on above: Performed By: #### L 500.4100, L500.4050 #### [facility] [address] [place], [address] Sodium [Moles/Vol] 134 mmol/L Low 136-[address] [facility] Comment on above: Performed By: #### L 500.4100, L500.4050 #### [facility] [address] [place], [address] T PROT 7.4 g/dL Normal 6.4-8.2 [facility] Comment on above: Performed By: #### L 500.4100, L500.4050 #### [facility] [address] [place], [address] Urea nitrogen [Mass/Vol] 6 mg/dL Low 7-18 [facility] Comment on above: Performed By: #### L 500.4100, L500.4050 #### [facility] [address] [place], [address] Lipid Profileon 06-14-2024 Cholesterol [Mass/Vol] 190 mg/dL Normal 200 [facility] Comment on above: Result Comment: <200 mg/dL Desirable 200-240 mg/dL Borderline >240 mg/dL High Risk Performed By: #### L 500.4100, L500.4050 #### [facility] [address] [place], [address] Cholesterol in HDL [Mass/Vol] 65 mg/dL Normal [facility] Comment on above: Result Comment: The drugs N-Acetylcysteine and Metamizole may falsely depress this assay. Reference Range HDL <40 mg/dL Low HDL Cholesterol HDL >or= 60 mg/dL High HDL Cholesterol Performed By: #### L 500.4100, L500.4050 #### [facility] [address] [place], [address] Cholesterol in LDL [Mass/Vol] 105 mg/dL Normal 0-130 [facility] Comment on above: Performed By: #### L 500.4100, L500.4050 #### [facility] [address] [place], [address] Cholesterol in VLDL [Mass/Vol] 20 mg/dL Normal 5-40 [facility] Comment on above: Performed By: #### L 500.4100, L500.4050 #### [facility] [address] [place], [address] Triglyceride [Mass/Vol] 99 mg/dL Normal [facility] Comment on above: Result Comment: The drugs N-Acetylcysteine and Metamizole may falsely depress this assay. Serum Triglycerides Reference Interval Normal <150 mg/dL Borderline high 150 - 199 mg/dL High 200 - 499 mg/dL Very High > or = 500 mg/dL Performed By: #### L 500.4100, L500.4050 #### [facility] [address] [place], [address] CNOVon 06-07-2024 CNOV Office Visit (VASSMN) ---- AGNIESZKA SIMPSON ([id number]) 1955 F Date Time Provider Department 06/07/24 9:00 AM JAZLYN MORGAN During your visit today, we recorded the following information about you: Pulse Respiration Blood pressure Weight 88/minute 17/minute 146/79 73.6 kg Height 1.651 m Jazlyn Morgan MD 06/07/2024 9:52 AM Addendum [facility] [place] DEPARTMENT OF VASCULAR SURGERY OUTPATIENT VISIT DATE June 07, 2024 OUTPATIENT VISIT TYPE CONSULTATION SERVICE DATE: 06/07/2024 SERVICE TIME: 9:23 AM PRIMARY CARE PHYSICIAN: Mk Renae MD REFERRING PROVIDER: Self-referred CHIEF COMPLAINT: Leg pain HISTORY OF PRESENT ILLNESS: Vascular consultation at the request of Dr. Masters. A copy of this consultation note will be provided to the requesting physician by way of shared Medical record or letter to requesting physician via US mail. Ms. Simpson is a 68 year old female who is seen today for evaluation of bilateral lower extremity pain with ambulation. She has onset of pain 10-15 yards. This started several years ago though has progressively worsened over the last 6 months. She denies any rest pain or wounds. She continues to smoke 1 ppd. 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) 06/07/2024 Centrilobular emphysema (HCC) 06/07/2024 Essential hypertension 06/07/2024 GERD (gastroesophageal reflux disease) 06/07/2024 PAST SURGICAL HISTORY Procedure Laterality Date PAST SURGICAL HISTORY OF 2000 hysterectomy PAST SURGICAL HISTORY OF Right R foot achilles lengthening SOCIAL HISTORY: Social History Tobacco Use Smoking status: Every Day Types: Cigarettes Smokeless tobacco: Never Substance Use Topics Drug use: Never FAMILY HISTORY Problem Relation Age of Onset Aneurysm Father Aneurysm Maternal Grandfather MEDICATIONS: cilostazol (PLETAL) 100 mg tablet Take 100 mg by mouth two times a day. amLODIPine (NORVASC) 10 mg tablet Take 10 mg by mouth once daily. carvedilol (COREG) 12.5 mg tablet Take 12.5 mg by mouth two times a day with meals. omeprazole 20 mg disintegrating tablet (PriLOSEC) Take 20 mg by mouth once daily. mv-mn/folic ac/calcium/vit K1 (WOMEN'S 50 PLUS MULTIVITAMIN ORAL) Take by mouth. calcium carbonate/vitamin D3 (CALTRATE 600 PLUS D ORAL) Take by mouth. cetirizine (ZYRTEC) 10 mg tablet Take 10 mg by mouth once daily. aspirin, enteric coated (ASPIRIN, ENTERIC COATED) 81 mg EC tablet Take 81 mg by mouth once daily. ALLERGIES: ALLERGIES No Known Allergies REVIEW of SYSTEM: Constitutional: No weight loss, malaise or fevers. HEENT: Negative for frequent or significant headaches Respiratory: Negative for cough, wheezing, or shortness of breath Cardiovascular: Negative for chest pain, leg swelling or palpitations Gatrointestinal: Negative for abdominal discomfort, blood in stools or black stools or change in bowel habits Genitourinary: No history of dysuria, frequency, or incontinence Musculoskeletal: Negative for joint pain or swelling, back pain or muscle pain Endocrine: Negative for cold or heat intolerance, polyuria, polydipsia and goiter Hematology/Lymphati c: Negative for prolonged bleeding, bruising easily or swollen nodes Neurologic: No history or headaches, syncope, paralysis, seizures or tremors Integumentary: Negative for lesions, rash, and itching. PHYSICAL EXAM: VITALS: BP 146/79 Pulse 88 Resp 17 Ht 5' 5 (1.65m) Wt 162 lb 4.1 oz (73.6kg) SpO2 98% BMI 27.00 kg/(m2). General: WDWN in NAD Skin: No lesions; normal color, turgor HEENT: NCAT PERRLA EOMI No icterus or adenopathy Carotid: bruits none Pulmonary: Clear to percussion and auscultation Coronary: Normal S1, S2; no murmurs, rubs or gallops Abdomen: No organomegaly, normal bowel sounds, non-tender Extremities: Normal range of motion, no edema or ulceration Vascular: 2+ Pulses throughout carotid, brachial radial. Nonpalpable femoral, popliteal or DP pulses. Neurologic: Awake, alert and oriented. Normal and symmetrical M/S function. Diagnostic tests reviewed for today's visit: Most recent imaging Germán Forbes MD Vascular Surgery Fellow PGY7 [facility] STAFF PHYSICIAN NOTE OF PERSONAL INVOLVEMENT IN CARE Vascular STAFF -Jazlyn Morgan MD I have reviewed the documentation above obtained and documented by the Fellow and I have personally performed a face to face assessment of the patient and have personally participated in the childers components of the visit which includes medical decision making. and have reviewed and updated the problem list as appropriate. I have personally participated in the childers component and physical exam and have discussed the case and management of the patient's care. (more content not included)... Normal [facility] SCREENING MAMM (CAD), BILATo n 05-17-2024 SCREENING MAMM (CAD), [facility] Services [address] [place] [address] SCREENING MAMM (CAD), BILAT MR#: [id number] Acct: [id number] Name: AGNIESZKA SIMPSON Rep #: [id number] : 1955 F 68 From: Omega diaz MD PCP: Dr. Mk Renae MD Status: [facility] Study: SCREENING MAMM (CAD), BILAT Date of Exam: 05/02 02/22 Exam# [id number] Ordering Dr: Mk Renae MD -[id number] MAMMOGRAPHY - BILATERAL SCREENING REASON FOR EXAM: Female, 68 years old. Routine annual screening examination. PERTINENT HISTORY: Aunt with breast cancer. Prior right stereotactic breast biopsy. TECHNIQUE: Digital bilateral breast alex (3D mammographic acquisition) in the CC and MLO projections. 2-D mediolateral oblique (MLO) and craniocaudad (CC) views of both breasts were obtained. CAD: Full Field Digital Mammography with Computer Added Detection was performed. COMPARISON: Comparison is made with prior study to May 14, 2023 and May 08, 2022. FINDINGS: Breast Composition: There are scattered areas of fibroglandular density. There are no dominant masses or suspicious calcifications. Stable fat-containing bilateral axillary lymph nodes. No other significant abnormalities are identified. There has been no significant change since the prior study. BI/SCREENING MAMM (CAD), BILAT IMPRESSION: Stable bilateral screening mammogram. Yearly follow-up mammogram recommended. (A) ASSESSMENT CATEGORY: BIRADS Category 2: Benign. A letter regarding these results will be sent to the patient by the facility within 30 days. Approximately 10% of breast cancers are not detected by mammography. A normal mammogram should not delay biopsy of a clinically suspicious abnormality. [id number] Electronically Signed: Omega Prather MD at 11:02 EDT , CC: Dr. Mk Renae MD [employer] Operator: Signed Normal [facility] 05-14-2024 CNPN Telephone (PODCCP) ---- AGNIESZKA SIMPSON ([id number]) 1955 F Date Time Provider Department 05/14/24 NO PCP PODCCP During your visit today, we recorded the following information about you: Farzad Laborer Steel HandlingGovind hernandez 05/14/2024 10:52 AM Signed Reason for call: Ms Simpson called and he would like to schedule an appointment with Home and cell number: [phone] Diagnosis: Abdominal aortic aneurysm Govind HoffmanGerri 05/18/2024 12:45 PM Signed LVM to return call for scheduling also need insurance info. Jared Gerri 05/18/2024 3:32 PM Signed Patient returned call provided insurance info.She stated she was diagnosed at [facility]. I could not bring up anything can you request records? I have her scheduled for 06/07/24 with . Allergies As of Date: 05/14/2024 (Not on File) Date Reviewed: Never Reviewed Reason for Visit: Appointment [186] Problem List As Of Date: 05/14/2024 (None) Encounter Status:Closed by GERRI COLEMAN on 05/18/24 Normal [facility] 36on 04-12-2024 36 S: Patient's son spoke with [facility] nurse regarding leg pain. B: Onset of symptoms/concern today. A: Patient's son reports patient can barely walk and is in severe pain. Reports she has been following up for vascular care with [facility] and would like to come to [facility]'s vascular office tomorrow. Patient not with caller, unable to fully triage. R: Patient's son advised to take patient to the ED at this time for her concerning symptoms, and per protocol. Patient's son verbalized understanding. Reports he is going to take patient to [facility] ED at this time. No further needs at this time. Reason for Disposition Unable to walk Protocols used: Leg [id number] Normal [facility] Culture, urineOrdered By: Siri Diaz on 04-04-2023 Bacteria identified Cx Nom (U) Presumptive E. coli [facility] Basophil percentageOrdered B y: Mk Renae on 12-24-2022 Chloride [Moles/Vol] 100 mmol/L 98-107 [facility] Cholesterol [Mass/Vol] 185 mg/dL <200 [facility] Comment on above: <200 mg/dL Desirable 200-240 mg/dL Borderline >240 mg/dL High Risk Glucose [Mass/Vol] 108 mg/dL 74-[address] [facility] Comment on above: Fasting Glucose resu lt from 100 to 125 mg/dL suggests IMPAIRED HOMEOSTASIS per A.D.A. criteria. Potassium [Moles/Vol] 4.2 mmol/L 3.5-5.1 [facility] Sodium [Moles/Vol] 132 mmol/L 136-[address] [facility] Triglyceride [Mass/Vol] 96 mg/dL <199 [facility] Comment on above: The drugs N-Acetylcy steine and Metamizole may falsely depress this assay.Serum Triglycerides Reference Interval Normal <150 mg/dL Borderline high 150 - 199 mg/dL High 200 - 499 mg/dL Very High > or = 500 mg/dL Laboratory - Chemistry and C hemistry - challengeOrdered By: Mk Renae on 12-24-2022 CO2 [Moles/Vol] 28.0 mmol/L 21.0-32.0 [facility] Urea nitrogen/Creatinine [Mass ratio] 8.6 mg/mg 10-20 [facility] No Panel InformationOrdered By: Mk Renae on 12-24-2022 Estimated GFR (MDRD) Amer 90 mL/min >60 [facility] Comment on above: GFR Calc Estimated GFR (MDRD) Non-Af Amer 74 mL/min >60 [facility] Comment on above: Non- GFR Calc Thyroid Stimulating Hormone (TSH) 3.46 uIU/mL 0.358-3.74 [facility] Serum or plasma calcium janet urement (mass/volume)Ordered By: Mk Renae on 12-24-2022 Calcium [Mass/Vol] 9.3 mg/dL 8.5-10.[address] [facility] Serum or plasma cholesterol in HDL measurement (mass/volume)Ordered By: Mk Renae on 12-24-2022 Cholesterol in HDL [Mass/Vol] 65 mg/dL >40 [facility] Comment on above: The drugs N-Acetylcy steine and Metamizole may falsely depress this assay. Reference Range HDL <40 mg/dL Low HDL Cholesterol HDL >or= 60 mg/dL High HDL Cholesterol Serum or plasma cholesterol in VLDL measurement (mass/volume)Ordered By: Mk Renae on 12-24-2022 Cholesterol in VLDL [Mass/Vol] 19 mg/dL 5-40 [facility] Serum or plasma creatinine m easurement (mass/volume)Ordered By: Mk Renae on 12-24-2022 Creatinine [Mass/Vol] 0.81 mg/dL 0.55-1.02 [facility] Comment on above: The validity of the calculated GFR & GFRAA in patients over 70 years has not been determined. Clinical correlation is essential. Serum or plasma low density lipoprotein (LDL) cholesterol measurement (mass/volume)Ordered By: Mk Renae on 12-24-2022 Cholesterol in LDL [Mass/Vol] 101 mg/dL 0-130 [facility] Serum or plasma urea nitroge n measurement (mass/volume)Ordered By: Mk Renae on 12-24-2022 Urea nitrogen [Mass/Vol] 7 mg/dL 7-18 [facility] Thin prep Papanicolaou smear with manual screeningOrdered By: Mk Renae on 12-24-2022 Thin prep Papanicolaou smear with manual screening 4 5-15 [facility] Basophil percentageon 2021 Chloride [Moles/Vol] 101 mmol/L 98-107 [facility] Work Phone: Cholesterol [Mass/Vol] 189 mg/dL <200 [facility] Work Phone: Comment on above: <200 mg/dL Desirable 200-240 mg/dL Borderline >240 mg/dL High Risk Glucose [Mass/Vol] 107 mg/dL 74-[address] [facility] Work Phone: Comment on above: Fasting Glucose resu lt from 100 to 125 mg/dL suggests IMPAIRED HOMEOSTASIS per A.D.A. criteria. Potassium [Moles/Vol] 4.0 mmol/L 3.5-5.1 [facility] Work Phone: Sodium [Moles/Vol] 134 mmol/L 136-[address] [facility] Work Phone: Triglyceride [Mass/Vol] 82 mg/dL <199 [facility] Work Phone: Comment on above: The drugs N-Acetylcy steine and Metamizole may falsely depress this assay.Serum Triglycerides Reference Interval Normal <150 mg/dL Borderline high 150 - 199 mg/dL High 200 - 499 mg/dL Very High > or = 500 mg/dL Laboratory - Chemistry and C hemistry - challengeon 06-20-2022 CO2 [Moles/Vol] 28.0 mmol/L 21.0-32.0 [facility] Work Phone: Urea nitrogen/Creatinine [Mass ratio] 9.0 mg/mg 06-20 [facility] Work Phone: No Panel Informationon 06-20 Estimated GFR (MDRD) Amer 95 mL/min >60 [facility] Work Phone: Comment on above: GFR Calc Estimated GFR (MDRD) Non-Af Amer 78 mL/min >60 [facility] Work Phone: Comment on above: Non- GFR Calc Serum or plasma calcium janet urement (mass/volume)on 06-20-2022 Calcium [Mass/Vol] 9.1 mg/dL 8.5-10.[address] [facility] Work Phone: Serum or plasma cholesterol in HDL measurement (mass/volume)on 06-20-2022 Cholesterol in HDL [Mass/Vol] 71 mg/dL >40 [facility] Work Phone: Comment on above: The drugs N-Acetylcy steine and Metamizole may falsely depress this assay. Reference Range HDL <40 mg/dL Low HDL Cholesterol HDL >or= 60 mg/dL High HDL Cholesterol Serum or plasma cholesterol in VLDL measurement (mass/volume)on 06-20-2022 Cholesterol in VLDL [Mass/Vol] 16 mg/dL 5-40 [facility] Work Phone: Serum or plasma creatinine m easurement (mass/volume)on 06-20-2022 Creatinine [Mass/Vol] 0.78 mg/dL 0.55-1.02 [facility] Work Phone: Comment on above: The validity of the calculated GFR & GFRAA in patients over 70 years has not been determined. Clinical correlation is essential. Serum or plasma low density lipoprotein (LDL) cholesterol measurement (mass/volume)on 06-20-2022 Cholesterol in LDL [Mass/Vol] 102 mg/dL 0-130 [facility] Work Phone: Serum or plasma urea nitroge n measurement (mass/volume)on 06-20-2022 Urea nitrogen [Mass/Vol] 7 mg/dL 7-18 [facility] Work Phone: Thin prep Papanicolaou smear with manual screeningon 06-20-2022 Thin prep Papanicolaou smear with manual screening 5 5-15 [facility] Work Phone: Absolute lymphocyte counton 01-31-2022 Lymphocytes Auto (Unsp spec) [#/Vol] 2.18 10*3/uL 0.83-4.51 [facility] Work Phone: Basophil percentageon 2021 Basophils/100 WBC (Bld) 0.6 % 0-1 [facility] Work Phone: Bilirubin [Mass/Vol] 0.30 mg/dL 0.20-1.00 [facility] Work Phone: Comment on above: For patients on eltr ombopag therapy, use of Dimension [place] TBIL is not recommended. Chloride [Moles/Vol] 93 mmol/L 98-107 [facility] Work Phone: Eosinophils/100 WBC (Bld) 1.9 % 0-5 [facility] Work Phone: Glucose [Mass/Vol] 108 mg/dL 74-[address] [facility] Work Phone: Comment on above: Fasting Glucose resu lt from 100 to 125 mg/dL suggests IMPAIRED HOMEOSTASIS per A.D.A. criteria. Lactate [Moles/Vol] 0.7 mmol/L 0.4-2.0 [facility] Work Phone: Neutrophils (Bld) [#/Vol] 2.4 10*3/uL 2.0-7.7 [facility] Work Phone: Neutrophils/100 WBC (Bld) 45.7 % 47-70 [facility] Work Phone: Potassium [Moles/Vol] 3.6 mmol/L 3.5-5.1 [place] [facility] Work Phone: Protein [Mass/Vol] 7.3 g/dL 6.4-8.2 [facility] Work Phone: Sodium [Moles/Vol] 129 mmol/L 136-145 [place] [facility] Work Phone: WBC (Bld) [#/Vol] 5.3 10*3/uL 4.4-11.0 [place] [facility] Work Phone: Blood erythrocytes count (nu mber/volume)on 01-31-2022 RBC (Bld) [#/Vol] 3.67 10*6/uL 4.2-5.4 [place] [facility] Work Phone: Blood hemoglobin measurement (mass/volume)on 01-31-2022 Hemoglobin (Bld) [Mass/Vol] 13.6 g/dL 12.0-15.0 [facility] Work Phone: Blood lymphocytes/100 leukoc yteson 01-31-2022 Lymphocytes/100 WBC (Bld) 41.2 % 19-41 [facility] Work Phone: Blood monocytes/100 leukocyt eson 01-31-2022 Monocytes/100 WBC (Bld) 10.2 % 0-10 [facility] Work Phone: Blood platelet mean volumeon 01-31-2022 Platelet mean volume (Bld) [Entitic vol] 10.6 fL 6.2-12.0 [facility] Work Phone: Determination of erythrocyte mean corpuscular volume (MCV)on 01-31-2022 MCV (RBC) [Entitic vol] 103.3 fL 81-99 [facility] Work Phone: Direct bilirubinon Bilirubin.direct [Mass/Vol] 0.11 mg/dL 0.00-0.30 [facility] Work Phone: Hematocrit Auto (Bld) [Volum e fraction]on 01-31-2022 Hematocrit (Bld) [Volume fraction] 37.9 % 37-47 [facility] Work Phone: Laboratory - Chemistry and C hemistry - challengeon 01-31-2022 ALP [Catalytic activity/Vol] 85 U/L 45-117 [facility] Work Phone: ALT [Catalytic activity/Vol] 23 U/L 13-56 [facility] Work Phone: CO2 [Moles/Vol] 28.0 mmol/L 21.0-32.0 [facility] Work Phone: Globulin (S) [Mass/Vol] 4.0 g/dL 2.2-4.2 [facility] Work Phone: Lipase [Catalytic activity/Vol] 189 U/L 73-393 [facility] Work Phone: Urea nitrogen/Creatinine [Mass ratio] 7.4 mg/mg 10-20 [facility] Work Phone: Laboratory - Hematology and Cell countson 01-31-2022 Erythrocyte distribution width (RBC) [Entitic vol] 44.6 fL 35.1-43.9 [facility] Work Phone: Erythrocyte distribution width (RBC) [Ratio] 11.8 % 11.6-14.6 [facility] Work Phone: Immature granulocytes/100 WBC (Bld) 0.400 % 0.0-0.9 [facility] Work Phone: Comment on above: IG% - Immature Granu locytes (promyelocytes, myelocytes and metamyelocytes) > 1% indicates that a LEFT SHIFT is Present. MCH (RBC) [Entitic mass] 37.1 pg 27.0-32.0 [facility] Work Phone: Nucleated RBC/100 WBC (Bld) [Ratio] 0 % 0-5 [facility] Work Phone: MCHC Auto (RBC) [Mass/Vol]on 01-31-2022 MCHC (RBC) [Mass/Vol] 35.9 g/dL 32-36 [facility] Work Phone: No Panel Informationon 01-31 Estimated Creatinine Clearance Calc 57.40 ml/min [facility] Work Phone: Estimated GFR (MDRD) Amer 91 mL/min >60 [facility] Work Phone: Comment on above: GFR Calc Estimated GFR (MDRD) Non-Af Amer 75 mL/min >60 [facility] Work Phone: Comment on above: Non- GFR Calc Platelets bldon 01-31-2022 Platelets (Bld) [#/Vol] 252 10*3/uL 150-450 [facility] Work Phone: Serum or plasma albumin janet urement (mass/volume)on 01-31-2022 Albumin [Mass/Vol] 3.3 g/dL 3.2-5.[address] [facility] Work Phone: Serum or plasma calcium janet urement (mass/volume)on 01-31-2022 Calcium [Mass/Vol] 8.9 mg/dL 8.5-10.[address] [facility] Work Phone: Serum or plasma creatinine m easurement (mass/volume)on 01-31-2022 Creatinine [Mass/Vol] 0.81 mg/dL 0.55-1.02 [facility] Work Phone: Comment on above: The validity of the calculated GFR & GFRAA in patients over 70 years has not been determined. Clinical correlation is essential. Serum or plasma urea nitroge n measurement (mass/volume)on 01-31-2022 Urea nitrogen [Mass/Vol] 6 mg/dL 7-18 [facility] Work Phone: Thin prep Papanicolaou smear with manual screeningon 01-31-2022 Thin prep Papanicolaou smear with manual screening 26 U/L 15-37 [facility] Work Phone: Thin prep Papanicolaou smear with manual screening 8 5-15 [facility] Work Phone: Absolute lymphocyte counton 01-27-2022 Lymphocytes Auto (Unsp spec) [#/Vol] 1.90 10*3/uL 0.83-4.51 [facility] Work Phone: Basophil percentageon 2021 Basophils/100 WBC (Bld) 0.3 % 0-1 [facility] Work Phone: Bilirubin [Mass/Vol] 0.60 mg/dL 0.20-1.00 [facility] Work Phone: Comment on above: For patients on eltr ombopag therapy, use of Dimension [place] TBIL is not recommended. Chloride [Moles/Vol] 98 mmol/L 98-107 [facility] Work Phone: Eosinophils/100 WBC (Bld) 1.0 % 0-5 [facility] Work Phone: Glucose [Mass/Vol] 133 mg/dL 74-[address] [facility] Work Phone: Comment on above: Fasting Glucose resu lt greater than or equal to 126 mg/dL suggests DIABETES MELLITUS per A.D.A. criteria. Neutrophils (Bld) [#/Vol] 3.4 10*3/uL 2.0-7.7 [facility] Work Phone: Neutrophils/100 WBC (Bld) 56.8 % 47-70 [facility] Work Phone: Potassium [Moles/Vol] 3.6 mmol/L 3.5-5.1 [facility] Work Phone: Protein [Mass/Vol] 7.6 g/dL 6.4-8.[address] [facility] Work Phone: Sodium [Moles/Vol] 132 mmol/L 136-[address] [facility] Work Phone: WBC (Bld) [#/Vol] 5.9 10*3/uL 4.4-11.[address] [facility] Work Phone: Blood erythrocytes count (nu mber/volume)on 01-27-2022 RBC (Bld) [#/Vol] 3.86 10*6/uL 4.2-5.4 [facility] Work Phone: Blood hemoglobin measurement (mass/volume)on 01-27-2022 Hemoglobin (Bld) [Mass/Vol] 14.5 g/dL 12.0-15.0 [facility] Work Phone: Blood lymphocytes/100 leukoc yteson 01-27-2022 Lymphocytes/100 WBC (Bld) 32.1 % 19-41 [facility] Work Phone: Blood monocytes/100 leukocyt eson 01-27-2022 Monocytes/100 WBC (Bld) 9.6 % 0-10 [facility] Work Phone: Blood platelet mean volumeon 01-27-2022 Platelet mean volume (Bld) [Entitic vol] 10.2 fL 6.2-12.0 [facility] Work Phone: Determination of erythrocyte mean corpuscular volume (MCV)on 01-27-2022 MCV (RBC) [Entitic vol] 103.9 fL 81-99 [facility] Work Phone: Hematocrit Auto (Bld) [Volum e fraction]on 01-27-2022 Hematocrit (Bld) [Volume fraction] 40.1 % 37-47 [facility] Work Phone: Laboratory - Chemistry and C hemistry - challengeon 01-27-2022 ALP [Catalytic activity/Vol] 86 U/L 45-117 [facility] Work Phone: ALT [Catalytic activity/Vol] 22 U/L 13-56 [facility] Work Phone: CO2 [Moles/Vol] 29.0 mmol/L 21.0-32.0 [facility] Work Phone: Globulin (S) [Mass/Vol] 4.1 g/dL 2.2-4.2 [facility] Work Phone: Lipase [Catalytic activity/Vol] 134 U/L 73-393 [facility] Work Phone: Urea nitrogen/Creatinine [Mass ratio] 7.4 mg/mg 10-20 [facility] Work Phone: Laboratory - Hematology and Cell countson 01-27-2022 Erythrocyte distribution width (RBC) [Entitic vol] 44.7 fL 35.1-43.9 [facility] Work Phone: Erythrocyte distribution width (RBC) [Ratio] 11.9 % 11.6-14.6 [facility] Work Phone: Immature granulocytes/100 WBC (Bld) 0.200 % 0.0-0.9 [facility] Work Phone: Comment on above: IG% - Immature Granu locytes (promyelocytes, myelocytes and metamyelocytes) > 1% indicates that a LEFT SHIFT is Present. MCH (RBC) [Entitic mass] 37.6 pg 27.0-32.0 [facility] Work Phone: Nucleated RBC/100 WBC (Bld) [Ratio] 0 % 0-5 [facility] Work Phone: MCHC Auto (RBC) [Mass/Vol]on 01-27-2022 MCHC (RBC) [Mass/Vol] 36.2 g/dL 32-36 [facility] Work Phone: No Panel Informationon 01-27 Estimated Creatinine Clearance Calc 57.40 ml/min [facility] Work Phone: Estimated GFR (MDRD) Amer 90 mL/min >60 [facility] Work Phone: Comment on above: GFR Calc Estimated GFR (MDRD) Non-Af Amer 75 mL/min >60 [facility] Work Phone: Comment on above: Non- GFR Calc Platelets bldon 01-27-2022 Platelets (Bld) [#/Vol] 199 10*3/uL 150-450 [facility] Work Phone: Serum or plasma albumin janet urement (mass/volume)on 01-27-2022 Albumin [Mass/Vol] 3.5 g/dL 3.2-5.[address] [facility] Work Phone: Serum or plasma albumin/glob ulin mass ratioon 01-27-2022 Albumin/Globulin [Mass ratio] 0.9 {ratio} 0.9-2.4 [facility] Work Phone: Serum or plasma calcium janet urement (mass/volume)on 01-27-2022 Calcium [Mass/Vol] 9.6 mg/dL 8.5-10.[address] [facility] Work Phone: Serum or plasma creatinine m easurement (mass/volume)on 01-27-2022 Creatinine [Mass/Vol] 0.81 mg/dL 0.55-1.02 [facility] Work Phone: Comment on above: The validity of the calculated GFR & GFRAA in patients over 70 years has not been determined. Clinical correlation is essential. Serum or plasma urea nitroge n measurement (mass/volume)on 01-27-2022 Urea nitrogen [Mass/Vol] 6 mg/dL 7-18 [facility] Work Phone: Thin prep Papanicolaou smear with manual screeningon 01-27-2022 Thin prep Papanicolaou smear with manual screening 18 U/L 15-37 [facility] Work Phone: Thin prep Papanicolaou smear with manual screening 5 5-15 [facility] Work Phone: Vital Signs Date Time Vital Sign Value Performing Clinician Faci lity 2024 12:56-0400 Body temperature 98.2 [degF] Dr. Mk Renae MD Work Phone: [facility] 2024 12:56-0400 Body weight 73.[address] Mk Renae MD Work Phone: [facility] 2024 12:56-0400 Diastolic blood pressure 83 mm[Hg] Dr. Mk Renae MD Work Phone: [facility] 2024 12:56-0400 Heart rate 76 /min Dr. Mk Renae MD Work Phone: [facility] 2024 12:56-0400 Respiratory rate 16 /min Dr. Mk Renae MD Work Phone: [facility] 2024 12:56-0400 SaO2% (BldA) [Mass fraction] 100 % Dr. Mk Renae MD Work Phone: [facility] 2024 12:56-0400 Systolic blood pressure 132 mm[Hg] Dr. Mk Renae MD Work Phone: [facility] 06-07-2024 09:15-0400 Body height 165.1 cm Jazlyn Morgan MD Work Phone: [facility] 06-07-2024 09:15-0400 Body mass index (BMI) [Ratio] 27 kg/m2 Jazlyn Morgan MD Work Phone: [facility] 06-07-2024 09:15-0400 Body weight 73.6 kg Jazlyn Morgan MD Work Phone: [facility] 06-07-2024 09:15-0400 Diastolic blood pressure 79 mm[Hg] Jazlyn Morgan MD Work Phone: [facility] 06-07-2024 09:15-0400 Heart rate 88 /min Jazlyn Morgan MD Work Phone: [facility] 06-07-2024 09:15-0400 Respiratory rate 17 /min Jazlyn Morgan MD Work Phone: [facility] 06-07-2024 09:15-0400 SaO2% (BldA) [Mass fraction] 98 % Jazlyn Morgan MD Work Phone: [facility] 06-07-2024 09:15-0400 Systolic blood pressure 146 mm[Hg] Jazlyn Morgan MD Work Phone: [facility] 02-01-2022 15:24-0400 Diastolic blood pressure 95 mm[Hg] Dr. Mk Renae Work Phone: [facility] Work Phone: 02-01-2022 15:24-0400 Systolic blood pressure 218 mm[Hg] Dr. Mk Renae Work Phone: [facility] Work Phone: 02-01-2022 14:57-0400 Body height 165.[address] Mk Renae Work Phone: [facility] Work Phone: 02-01-2022 14:57-0400 Body mass index (BMI) [Ratio] 26.8 kg/m2 Dr. Mk Renae Work Phone: [facility] Work Phone: 02-01-2022 14:57-0400 Body temperature 97.3 [degF] Dr. Mk Renae Work Phone: [facility] Work Phone: 02-01-2022 14:57-0400 Body weight 73.[address] Mk Renae Work Phone: [facility] Work Phone: 02-01-2022 14:57-0400 Heart rate 65 /min Dr. Mk Renae Work Phone: [facility] Work Phone: 02-01-2022 14:57-0400 Respiratory rate 18 /min Dr. Mk Renae Work Phone: [facility] Work Phone: 02-01-2022 14:57-0400 SaO2% (BldA) [Mass fraction] 98 % Dr. Mk Renae Work Phone: [facility] Work Phone: 01-31-2022 04:55-0400 Respiratory rate 16 /min [facility] Work Phone: 01-31-2022 02:26-0400 Diastolic blood pressure 93 mm[Hg] [facility] Work Phone: 01-31-2022 02:26-0400 Systolic blood pressure 180 mm[Hg] [facility] Work Phone: 01-31-2022 01:12-0400 Body height 162.56 cm [facility] Work Phone: 01-31-2022 01:12-0400 Body mass index (BMI) [Ratio] 28 kg/m2 [facility] Work Phone: 01-31-2022 01:12-0400 Body temperature 97.6 [degF] [facility] Work Phone: 01-31-2022 01:12-0400 Body weight 74.1 kg [facility] Work Phone: 01-31-2022 01:12-0400 Heart rate 74 /min [facility] Work Phone: 01-31-2022 01:12-0400 SaO2% (BldA) [Mass fraction] 98 % [facility] Work Phone: 01-27-2022 05:10-0400 Diastolic blood pressure 78 mm[Hg] [facility] Work Phone: 01-27-2022 05:10-0400 Heart rate 88 /min [facility] Work Phone: 01-27-2022 05:10-0400 Systolic blood pressure 132 mm[Hg] [facility] Work Phone: 01-27-2022 01:270400 Body height 162.56 cm [facility] Work Phone: 01-27-2022 01:27-0400 Body mass index (BMI) [Ratio] 27.3 kg/m2 [facility] Work Phone: 01-27-2022 01:27-0400 Body temperature 98.2 [degF] [facility] Work Phone: 01-27-2022 01:27-0400 Body weight 72.2 kg [facility] Work Phone: 01-27-2022 01:270400 Respiratory rate 20 /min [facility] Work Phone: 01-27-2022 01:270400 SaO2% (BldA) [Mass fraction] 96 % [facility] Work Phone: Encounters Encounter Date Encounter Type Care Provider Facility Start: 05-18-2025 ambulatory Mk Renae Facility:[facility] Start: 04-06-2025 Non-patient / Non-visit Dr. Tony flores MD -[facility] Start: 04-06-2025 End: 04-06-[address] Mk Renae MD Work Phone: -[facility] Start: 04-06-2025 End: 04-06-[address] Tony Andres MD -[facility] Work Phone: Start: 04-06-2025 End: 04-06-2025 ambulatory Mk Renae Facility:[facility] Start: 2024 End: [address] Tony Andres MD -[facility] Work Phone: Start: 2024 End: 2024 ambulatory Mk Renae Facility:[facility] Start: 12-16-2024 End: 12-16-[address] Mk Renae MD -[facility] Start: 12-16-2024 End: 12-16-2024 ambulatory Mk Renae Facility:[facility] Start: 06-14-2024 End: 06-14-2024 ambulatory Mk Renae Facility:[facility] Start: 06-07-2024 End: 06-07-2024 Patient encounter status Jazlyn Morgan MD Work Phone: [facility] Start: 06-07-2024 End: 06-07-2024 ambulatory SELF Facility:[facility] Comment on above: Abdominal aortic ane urysm (AAA) without rupture, unspecified part (HCC) (Primary Dx) Atherosclerosis of a vivi (HCC) (Primary Dx); Peripheral vascular disease (HCC); Encounter for screening for cardiovascular disorders; Centrilobular emphysema (HCC); Carotid stenosis, asymptomatic, bilateral; Preop testing; Encounter for preprocedural cardiovascular examination Start: 06-07-2024 End: 06-07-2024 Patient encounter procedure Jazlyn Morgan MD Work Phone: Vascular Surg Dept Comment on above: Atherosclerosis of n ative artery of both lower extremities with intermittent claudication (HCC) (Primary Dx); Essential hypertension; Gastroesophageal reflux disease without esophagitis; Infrarenal abdominal aortic aneurysm (AAA) without rupture (HCC); Centrilobular emphysema (HCC); Aortic occlusion (HCC) Start: 05-17-2024 End: 05-17-2024 ambulatory [facility] Facility:[facility] Start: 05-14-2024 End: 05-18-2024 Telephone encounter No Pcp [facility] Comment on above: Appointment Start: 04-13-2024 End: 04-13-2024 Emergency department patient visit [facility] Start: 04-12-2024 End: 04-17-2024 ambulatory Irena Spann RN [facility] Clinical Communication Start: 04-12-2024 End: 04-17-2024 Patient encounter procedure Irena Spann RN [facility] Clinical Communication Start: 05-14-2023 End: 05-14-2023 ambulatory [facility] Work Phone: Start: 05-14-2023 End: 05-14-2023 Patient encounter procedure [facility]Out[facility] Work Phone: Start: 04-04-2023 End: 04-04-2023 ambulatory [facility] Work Phone: Start: 04-04-2023 End: 04-04-2023 Patient encounter procedure [facility]-Laboratory, Specimen Work Phone: Start: 12-24-2022 End: 12-24-2022 Patient encounter procedure [facility], [facility] Start: 07-12-2022 End: 07-12-2022 ambulatory [facility] Work Phone: Start: 07-12-2022 End: 07-12-2022 Patient encounter procedure [facility]Radiology, [place] Start: 06-20-2022 End: 06-20-2022 ambulatory [facility] Work Phone: Start: 06-20-2022 End: 06-20-2022 Patient encounter procedure [facility], [facility] Start: 05-08-2022 End: 05-08-[address] Mk Renae Work Phone: [facility] Work Phone: Start: 05-08-2022 End: 05-08-[address] Mk Renae Work Phone: [facility] Start: 02-18-2022 End: 02-18-[address] Mk Renae Work Phone: [facility]-Nuclear Medicine, [facility] Start: 02-01-2022 End: 02-01-[address] Mk Renae Work Phone: [facility] Start: 01-31-2022 End: 01-31-2022 Emergency department patient visit [facility] Start: 01-27-2022 End: 01-27-2022 Emergency department patient visit [facility] Procedures Date Procedure Procedure Detail Performing Clinician Start: 05-14-2023 Screening mammography Start: 04-04-2023 Urine culture Start: 07-12-2022 X-ray of both feet Start: 05-08-2022 Screening mammography Oleg Renae Work Phone: Start: 02-18-2022 Radionuclide imaging of liver and/or biliary tract using radioactive isotope Dr. Mk Renae Work Phone: Start: 01-31-2022 US scan of gallbladder Start: 01-27-2022 Computed tomography of abdomen and pelvis with intravenous contrast Plan of Treatment Date Care Activity Detail Author Start: 06-07-2024 End: 06-07-2024 Patient encounter procedure [facility] Comment on above: DX:AAA Start: 05-02-2024 Covid-19 Vaccine ( season) Covid-19 Vaccine ( season) [facility] Start: 05-02-2024 Covid-19 Vaccine ( season) Covid-19 Vaccine ( season) [facility] Start: 05-02-2024 Influenza vaccination Influenza Vacc ine (#1) [facility] Start: 09-01-2023 Advance Directive Discussion Advance Directive Discussion [facility] Start: 05-02-2023 COVID-19 Vaccine ( season) COVID-19 Vaccine ( season) [facility] Start: 04-02-2019 Pneumococcal Vaccine : 65+ (2 of 2 - PPSV23 or PCV20) Pneumococcal Vaccine: 65+ (2 of 2 - PPSV23 or PCV20) [facility] Start: 02-06-2019 Urine microalbumin profile DTaP,Tdap,Td Vaccine (1 - Tdap) [facility] Start: 2018 Pneumococcal Vaccine : 65+ (1 of 1 - PCV) Pneumococcal Vaccine: 65+ (1 of 1 - PCV) [facility] Start: 2018 Pneumococcal Vaccine : 65+ Years (1 of 1 - PCV) Pneumococcal Vaccine: 65+ Years (1 of 1 - PCV) [facility] Start: 2018 Screening for osteoporosis Bone Density Screening [facility] Start: 2013 RSV Immunization age d 60 or older (1 - 1-dose 60+ series) RSV Immunization aged 60 or older (1 - 1-dose 60+ series) [facility] Start: 2013 RSV Vaccine (1 - 1-d ose 60+ series) RSV Vaccine (1 - 1-dose 60+ series) [facility] Start: 2013 RSV Vaccine (1 - Ris k 60-74 years 1-dose series) RSV Vaccine (1 - Risk 60-74 years 1-dose series) [facility] Start: 12-31-2003 Shingrix Vaccine (1 of 2) Salas grix Vaccine (1 of 2) [facility] Start: 12-31-2003 Zoster Vaccines (1 of 2) Zoster Vacc mary (1 of 2) [facility] Start: 1998 Diabetes Screening Diabetes Screenin g [facility] Start: 1998 Lipid panel Lipid Screening [facility] Start: 1998 Screening for malign ant neoplasm of colon [facility] Start: 1993 Screening for malign ant neoplasm of breast [facility] Start: 12-31-1983 Zoledronic acid therapy Alpha- 1 Antitrypsin Deficiency Screening [facility] Start: 1972 DTaP/Tdap/Td Vaccine s (1 - Tdap) DTaP/Tdap/Td Vaccines (1 - Tdap) [facility] Start: 1972 Urine microalbumin profile DTaP,Tdap,Td Vaccine (1 - Tdap) [facility] Start: 12-31-1971 Annual PCP Team [employer] jonah Disease Visit Annual PCP Team Chronic Disease Visit [facility] Start: 12-31-1971 Anxiety Screening Anxiety Screening [facility] Start: 12-31-1971 BP Controlled (<130/80) BP Controlle d (<130/80) [facility] Start: 12-31-1971 Depression Screening Depression Scre ing [facility] Start: 12-31-1971 Hepatitis C screening Hepatitis C Sc reening [facility] Start: 12-31-1971 Spirometry Spirometry [facility] Start: 1965 Depression Screening Depression Scre ing [facility] Start: 1953 Screening for malign ant neoplasm of colon [facility] Start: 1953 Screening for osteoporosis Bone Density Scan [facility] End: 07-07-2025 CTA Abdominal, Pelvis and Lower extremity vessels W contrast IV CTA ABD/PEL LOWER EXTREM WO/W IVCON Radiology Routine Atherosclerosis of aorta (HCC) Peripheral vascular disease (HCC) Carotid stenosis, asymptomatic, bilateral 1 Occurrences starting 06/07/2024 until 07/07/2025 [facility] Comment on above: 1 Occurrences starti ng 06/07/2024 until 07/07/2025 End: 06-07-2025 Echocardiography ECHO Cardiology Routine Atherosclerosis of aorta (HCC) Peripheral vascular disease (HCC) Encounter for screening for cardiovascular disorders Centrilobular emphysema (HCC) Carotid stenosis, asymptomatic, bilateral 1 Occurrences starting 06/07/2024 until 06/07/2025 [facility] Work Phone: Comment on above: 1 Occurrences starti ng 06/07/2024 until 06/07/2025 End: 07-07-2025 LUNG DIFFUSION CAPACITY (DLCO) LUNG DIFFUSION CAPACITY (DLCO) PFT Routine Peripheral vascular disease (HCC) Encounter for screening for cardiovascular disorders Centrilobular emphysema (HCC) Carotid stenosis, asymptomatic, bilateral 1 Occurrences starting 06/07/2024 until 07/07/2025 [facility] Comment on above: 1 Occurrences starti ng 06/07/2024 until 07/07/2025 End: 07-07-2025 LUNG VOLUMES LUNG VOLUMES PFT Routine Peripheral vascular disease (HCC) Encounter for screening for cardiovascular disorders Centrilobular emphysema (HCC) Carotid stenosis, asymptomatic, bilateral 1 Occurrences starting 06/07/2024 until 07/07/2025 [facility] Comment on above: 1 Occurrences starti ng 06/07/2024 until 07/07/2025 End: 07-07-2025 NM Heart Perfusion W stress and W radionuclide IV NM CARDIAC PERF STRESS/PHARM Radiology Routine Encounter for screening for cardiovascular disorders Carotid stenosis, asymptomatic, bilateral Encounter for preprocedural cardiovascular examination 1 Occurrences starting 06/07/2024 until 07/07/2025 [facility] Comment on above: 1 Occurrences starti ng 06/07/2024 until 07/07/2025 [facility] Work Phone: Patient referral [facility] Work Phone: End: 07-07-2025 SPIROMETRY - BASELINE AND POST DILATOR SPIROMETRY - BASELINE AND POST DILATOR PFT Routine Atherosclerosis of aorta [facility] Encounter for screening for cardiovascular disorders Centrilobular emphysema (HCC) Carotid stenosis, asymptomatic, bilateral 1 Occurrences starting 06/07/2024 until 07/07/2025 [facility] Comment on above: 1 Occurrences starti ng 06/07/2024 until 07/07/2025 End: 06-07-2025 US Carotid arteries - bilateral US CAROTID ARTERIES [facility] V[facility] Lab Routine Encounter for screening for cardiovascular disorders Carotid stenosis, asymptomatic, bilateral 1 Occurrences starting 06/07/2024 until 06/07/2025 [facility] Comment on above: 1 Occurrences starti ng 06/07/2024 until 06/07/2025 End: 06-07-2025 US.doppler Extremity arteries - bilateral for physiologic artery study PVR ANK PRESS [facility] V[facility] Lab Routine Atherosclerosis of aorta (HCC) Peripheral vascular disease (HCC) Encounter for screening for cardiovascular disorders Carotid stenosis, asymptomatic, bilateral 1 Occurrences starting 06/07/2024 until 06/07/2025 [facility] Comment on above: 1 Occurrences starti ng 06/07/2024 until 06/07/2025 Immunizations Immunization Date Immunization Notes Care Provider Eun bill 06-26-2023 influenza virus vacc ine, unspecified formulation Jazlyn Morgan MD Work Phone: [facility] Payers Date Payer Category Payer Self-pay [id number] 2024 Unknown [id number] 2018 Medicare MEDICARE MEDICAR E A AND B [id number] 2018-Present [phone] [address] [address] [place] [address] Medicare [id number] 2018 Medicare [id number] 2015 Unknown [id number] Unknown [id number] Unknown [id number] Unknown [id number] Unknown [id number] Unknown [id number] Unknown [id number] Unknown [id number] Social History Date Type Detail Facility Start: 01-27-2022 End: 02-01-2022 Tobacco smoking status NHIS Unknown if ever smoked [facility] Start: 03-06-2020 [facility] Start: 03-06-2020 [facility] Start: 03-04-2020 [facility] Start: 1955 Sex Assigned At Female [facility] Start: 1955 Sex assigned at Not on file [facility] Start: 06-07-2024 Gender identity Not on file [facility] Start: 06-07-2024 Tobacco smoking stat us NHIS Smokes tobacco daily [facility] History of tobacco use Cigarette Smoker [facility] Start: 06-07-2024 Tobacco use and exposure Smokeless tobacco non-user [facility] Start: 06-07-2024 History of Social function [facility] National Score (1-10 0), lower number is lower risk 71 [facility] Start: 06-02-2024 Gender identity Identifies as female gender (finding) [facility] Start: 06-02-2024 Sexual orientation Heterosexual (fin ding) [facility] Start: 2024 Tobacco smoking stat us NHIS Current Heavy tobacco smoker [facility] Goals Date Patient Goal Desired Activity /State Personal health goal Clinical Notes 04-12-2024 to 2024 Note Date & Type Note Facility 2024 Evaluation note Diagnosis Onset Date Resolution AAA (abdominal aortic aneurysm) without rupture chronic 2024 12 :42pm PAD (peripheral artery disease) chronic 2024 12 :42pm [facility] Work Phone: 1(905) 929-523910-07-2024 Note* Addendum Note - Sammi Harmon RN - 06/07/2024 9:40 AM EDTAddended by: SAMMI HARMON on: 06/07/2024 09:40 AM Modules accepted: Orders [facility]10-07-2024 Miscellaneous Notes* Addendum Note - Sammi Harmon RN - 06/07/2024 9:40 AM EDTAddended by: SAMMI HARMON on: 06/07/2024 09:40 AM Modules accepted: Orders documented in this encounterW[facility]24 NoteHNO ID: [id number] Author: JAZLYN MORGAN MD Service: ? Author Type: Physician Type: Progress Notes Filed: 06/07/2024 09:52 Note Text: [facility] [place] DEPARTMENT OF VASCULAR SURGERY OUTPATIENT VISIT DATE June 07, 2024 OUTPATIENT VISIT TYPE CONSULTATION SERVICE DATE: 06/07/2024 SERVICE TIME: 9:23 AM PRIMARY CARE PHYSICIAN: Mk Renae MD REFERRING PROVIDER: Self-referred CHIEF COMPLAINT: Leg pain HISTORY OF PRESENT ILLNESS: Vascular consultation at the request of Dr. Masters. A copy of this consultation note will be provided to the requesting physician by way of shared Medical record or letter to requesting physician via [place] mail. Ms. Simpson is a 68 year old female who is seen today for evaluation of bilateral lower extremity pain with ambulation. She has onset of pain 10-15 yards. This started several years ago though has progressively worsened over the last 6 months. She denies any rest pain or wounds. She continues to smoke 1 ppd. 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) 06/07/2024 Centrilobular emphysema (HCC) 06/07/2024 Essential hypertension 06/07/2024 GERD (gastroesophageal reflux disease) 06/07/2024 PAST SURGICAL HISTORY Procedure Laterality Date PAST SURGICAL HISTORY OF 2000 hysterectomy PAST SURGICAL HISTORY OF Right R foot achilles lengthening SOCIAL HISTORY: Social History Tobacco Use Smoking status: Every Day Types: Cigarettes Smokeless tobacco: Never Substance Use Topics Drug use: Never FAMILY HISTORY Problem Relation Age of Onset Aneurysm Father Aneurysm Maternal Grandfather MEDICATIONS: cilostazol (PLETAL) 100 mg tablet Take 100 mg by mouth two times a day. amLODIPine (NORVASC) 10 mg tablet Take 10 mg by mouth once daily. carvedilol (COREG) 12.5 mg tablet Take 12.5 mg by mouth two times a day with meals. omeprazole 20 mg disintegrating tablet (PriLOSEC) Take 20 mg by mouth once daily. mv-mn/folic ac/calcium/vit K1 (WOMEN'S 50 PLUS MULTIVITAMIN ORAL) Take by mouth. calcium carbonate/vitamin D3 (CALTRATE 600 PLUS D ORAL) Take by mouth. cetirizine (ZYRTEC) 10 mg tablet Take 10 mg by mouth once daily. aspirin, enteric coated (ASPIRIN, ENTERIC COATED) 81 mg EC tablet Take 81 mg by mouth once daily. ALLERGIES: ALLERGIES No Known Allergies REVIEW of SYSTEM: Constitutional: No weight loss, malaise or fevers. HEENT: Negative for frequent or significant headaches Respiratory: Negative for cough, wheezing, or shortness of breath Cardiovascular: Negative for chest pain, leg swelling or palpitations Gatrointestinal: Negative for abdominal discomfort, blood in stools or black stools or change in bowel habits Genitourinary: No history of dysuria, frequency, or incontinence Musculoskeletal: Negative for joint pain or swelling, back pain or muscle pain Endocrine: Negative for cold or heat intolerance, polyuria, polydipsia and goiter Hematology/Lymphatic: Negative for prolonged bleeding, bruising easily or swollen nodes Neurologic: No history or headaches, syncope, paralysis, seizures or tremors Integumentary: Negative for lesions, rash, and itching. PHYSICAL EXAM: VITALS: BP 146/79 Pulse 88 Resp 17 Ht 5' 5 (1.65m) Wt 162 lb 4.1 oz (73.6kg) SpO2 98% BMI 27.00 kg/(m2). General: WDWN in NAD Skin: No lesions; normal color, turgor HEENT: NCAT PERRLA EOMI No icterus or adenopathy Carotid: bruits none Pulmonary: Clear to percussion and auscultation Coronary: Normal S1, S2; no murmurs, rubs or gallops Abdomen: No organomegaly, normal bowel sounds, non-tender Extremities: Normal range of motion, no edema or ulceration Vascular: 2+ Pulses throughout carotid, brachial radial. Nonpalpable femoral, popliteal or DP pulses. Neurologic: Awake, alert and oriented. Normal and symmetrical M/S function. Diagnostic tests reviewed for today's visit: Most recent imaging Germán Forbes MD Vascular Surgery Fellow PGY7 [facility] STAFF PHYSICIAN NOTE OF PERSONAL INVOLVEMENT IN CARE Vascular STAFF -Jazlyn Morgan MD I have reviewed the documentation above obtained and documented by the Fellow and I have personally performed a face to face assessment of the patient and have personally participated in the childers components of the visit which includes medical decision making. and have reviewed and updated the problem list as appropriate. I have personally participated in the childers component and physical exam and have discussed the case and management of the patient's care. The following comments revise or confirm relevant childers components. IMPRESSION/PLAN: She is here to see me for lifestyle-limiting claudication. She has been having intermittent claudication for several years. About a year ago got worse. She has seen [facility] at [facility] (more content not included)... [facility]10-07-2024 History of Present illness Narrative* Jazlyn Morgan MD - 06/07/2024 9:23 AM EDT Images from the original note were not included. [facility] [place] DEPARTMENT OF VASCULAR SURGERY OUTPATIENT VISIT DATE June 07, 2024 OUTPATIENT VISIT TYPE CONSULTATION SERVICE DATE: 06/07/2024 SERVICE TIME: 9:23 AM PRIMARY CARE PHYSICIAN: Mk Renae MD REFERRING PROVIDER: Self-referred CHIEF COMPLAINT: Leg pain HISTORY OF PRESENT ILLNESS: Vascular consultation at the request of Dr. Masters. A copy of this consultation note will be providedto the requesting physician by way of shared Medical record or letter to requesting physician via US mail. Ms. Simpson is a 68 year old female who is seen today for evaluation of bilateral lower extremity pain with ambulation. She has onset of pain 10-15 yards. This started several years ago though has progressively worsened over the last 6 months. She denies any rest pain or wounds. She continues to smoke 1 ppd. 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) 06/07/2024 Centrilobular emphysema (HCC) 06/07/2024 Essential hypertension 06/07/2024 GERD (gastroesophageal reflux disease) 06/07/2024 PAST SURGICAL HISTORY Procedure Laterality Date PAST SURGICAL HISTORY OF 2000 hysterectomy PAST SURGICAL HISTORY OF Right R foot achilles lengthening SOCIAL HISTORY: Social History Tobacco Use Smoking status: Every Day Types: Cigarettes Smokeless tobacco: Never Substance Use Topics Drug use: Never FAMILY HISTORY Problem Relation Age of Onset Aneurysm Father Aneurysm Maternal Grandfather MEDICATIONS: cilostazol (PLETAL) 100 mg tablet Take 100 mg by mouth two times a day. amLODIPine (NORVASC) 10 mg tablet Take 10 mg by mouth once daily. carvedilol (COREG) 12.5 mg tablet Take 12.5 mg by mouth two times a day with meals. omeprazole 20 mg disintegrating tablet (PriLOSEC) Take 20 mg by mouth once daily. mv-mn/folic ac/calcium/vit K1 (WOMEN'S 50 PLUS MULTIVITAMIN ORAL) Take by mouth. calcium carbonate/vitamin D3 (CALTRATE 600 PLUS D ORAL) Take by mouth. cetirizine (ZYRTEC) 10 mg tablet Take 10 mg by mouth once daily. aspirin, enteric coated (ASPIRIN, ENTERIC COATED) 81 mg EC tablet Take 81 mg by mouth once daily. ALLERGIES: ALLERGIES No Known Allergies REVIEW of SYSTEM: Constitutional: No weight loss, malaise or fevers. HEENT: Negative for frequent or significant headaches Respiratory: Negative for cough, wheezing, or shortness of breath Cardiovascular: Negative for chest pain, leg swelling or palpitations Gatrointestinal: Negative for abdominal discomfort, blood in stools or black stools or change in bowel habits Genitourinary: No history of dysuria, frequency, or incontinence Musculoskeletal: Negative for joint pain or swelling, back pain or muscle pain Endocrine: Negative for cold or heat intolerance, polyuria, polydipsia and goiter Hematology/Lymphatic: Negative for prolonged bleeding, bruising easily or swollen nodes Neurologic: No history or headaches, syncope, paralysis, seizures or tremors Integumentary: Negative for lesions, rash, and itching. PHYSICAL EXAM: VITALS: BP 146/79 Pulse 88 Resp 17 Ht 5' 5 (1.65m) Wt 162 lb 4.1 oz (73.6kg) SpO2 98% BMI 27.00 kg/(m^2). General: WDWN in NAD Skin: No lesions; normal color, turgor HEENT: NCAT PERRLA EOMI No icterus or adenopathy Carotid: bruits none Pulmonary: Clear to percussion and auscultation Coronary: Normal S1, S2; no murmurs, rubs or gallops Abdomen: No organomegaly, normal bowel sounds, non-tender Extremities: Normal range of motion, no edema or ulceration Vascular: 2+ Pulses throughout carotid, brachial radial. Nonpalpable femoral, popliteal or DP pulses. Neurologic: Awake, alert and oriented. Normal and symmetrical M/S function. Diagnostic tests reviewed for today's visit: Most recent imaging Germán Forbes MD Vascular Surgery Fellow PGY7 [facility] STAFF PHYSICIAN NOTE OF PERSONAL INVOLVEMENT IN CARE Vascular STAFF -Jazlyn Morgan MD I have reviewed the documentation above obtained and documented by the Fellow and I have personallyperformed a face to face assessment of the patient and have personally participated in the childers components of the visit which includes medical decision making. and have reviewed and updated the problem list as appropriate. I have personally participated in the childers component and physical exam and have discussed the case and management of the patient's care. The following comments revise or confirm relevant childers components. IMPRESSION/PLAN: She is here to see me for lifestyle-limiting claudication. She has been having intermittent claudication for several years. About a year ago got worse. She has seen Dr. Tony Andres at [facility]. She had a CTA runoff on April 09, 2024 and shows a some dilatation of the infrarenal aorta to 28 mm with some thrombus in it. 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 Her SFAs have mild disease. On the right side she has a posterior tibial artery occlusion with two-vessel runoff via the peroneal and AT on the left side she has three-vessel runoff proximally the posterior tib occludes down in the foot. She has absent femoral pulses bilaterally She denies any family history of aneurysm disease. She has never had any heart attack that she has been knows of. She does have centrilobular emphysema and smoked for many many years she is a retiredOR nurse. Her SHANTELL on the right side from her testing in January 2024 was 0.55 on the right and the left was 0.51. I am going to start her on a graded exercise regimen and see how she does. She is likely going to need an aortic procedure with an aortobifem. Right now she has no tissue loss and her limbs are at low risk. I am going to get her an echo in 2 to 3 months and a stress test to see what kind of shape her heart is in and we will repeat a new CT scan abdomen pelvis runoff at that time. Research in vascular exercise has demonstrated remarkable improvement in symptoms of leg pain (claudication) without expensive or invasive interventions. Regular walking programs are extremely helpful for patients with PAD and intermittent claudication. These steps are designed to help you get started with a safe and effective program to help you walkfarther with less pain: Walk at least three times a week (preferably every day). Your goal is to build up to 30-45 minutes of total walking time (not counting rest breaks). It may take you several weeks to build up your exercise time starting at 5-10 minutes or whatever you can tolerate. Walk as far as possible using near-maximal pain (8-9 on the scale below) as a signal to stop, and resume walking when the pain goes away. On a treadmill, set the speed and grade at a level that brings on the claudication pain within 3 to5 minutes. Walk at this rate until you experience claudication of moderate severity, rest until the pain improves, and then resume walking. Over time, you will be able to walk longer at the designated speed and grade; workload should then be increased until you develop the pain within 3 to 5 minutes once again. This regimen will induce a significant benefit. Studies have demonstrated that participants may be able to walk up to three or four times farther and have less leg pain, within twelve weeks, by following this protocol. Discussed optimal medical management BP goal <130/80 with control Optimal mgmt of Diabetes when present to HgBA1c to <7 Lipid goal LDL <70 with yearly lipid checks and statin when >70 or PSK9 inhibitor if statin intolerant Smoking avoidance and cessation when smoking;. Smoking since patient counseling was done. RTC 3-4 months CTA BLE runoff, echo, stress thallium shantell and carotid duplex and pfts with and without bronchodilators. If her symptoms are not lifestyle- limiting at that point she will not need the echo stress or PFTs. She will me know she goes to [place] and I told her we could work around that and see her after her [place] trip. Her PCP should check her lipid profile and she should be on a statin STAFF PHYSICIAN: Jazlyn Morgan MD DATE OF SERVICE: June 07, 2024 TIME OF SERVICE: 9:37 AM SIGNATURE: Jazlyn Morgan MD PATIENT NAME: Agnieszka Simpson DATE: June 07, 2024 TIME: 9:23 AM documented in this encounterW[facility] Telephone encounter Note * Telephone Encounter - Gerri Coleman - 05/18/2024 3:24 PM EDT Patient returned call provided insurance info.She stated she was diagnosed at [facility]. I could not bring up anything can you request records? I have her scheduled for 06/07/24 with . [facility]09-17-2024 Miscellaneous Notes* Telephone Encounter - Gerri Coleman - 05/18/2024 3:24 PM EDT Patient returned call provided insurance info.She stated she was diagnosed at [facility]. I could not bring up anything can you request records? I have her scheduled for 06/07/24 with . * Telephone Encounter - Gerri Coleman - 05/18/2024 12:44 PM EDT LVM to return call for scheduling also need insurance info. * Telephone Encounter - Govind Dean - 05/14/2024 10:51 AM EDT Reason for call: Ms Simpson called and he would like to schedule an appointment with Home and cell number: [phone] Diagnosis: Abdominal aortic aneurysm Govind Hoffman documented in this encounterWy[facility]ot [facility]09-17-2024 Telephone encounter Note * Telephone Encounter - Gerri Coleman - 05/18/2024 12:44 PM EDT LVM to return call for scheduling also need insurance info. [facility]09-13-2024 Telephone encounter Note* Telephone Encounter - Govind Dean - 05/14/2024 10:51 AM EDT Reason for call: Ms Simpson called and he would like to schedule an appointment with [place] and cell number: [phone] Diagnosis: Abdominal aortic aneurysm Oneil NaiduGovind [facility]08-12-2024 Telephone encounter Note* Telephone Encounter - Irena Spann RN - 04/12/2024 6:28 PM EDT S: Patient's son spoke with [facility] nurse regarding leg pain. B: Onset of symptoms/concern today. A: Patient's son reports patient can barely walk and is in severe pain. Reports she has been following up for vascular care with [facility] and would like to come to [facility] vascular office tomorrow. Patient not with caller, unable to fully triage. R: Patient's son advised to take patient to the ED at this time for her concerning symptoms, and per protocol. Patient's son verbalized understanding. Reports he is going to take patient to [facility] ED atthis time. No further needs at this time. Reason for Disposition Unable to walk Protocols used: Leg [id number] [id number] Miscellaneous Notes* Telephone Encounter - Irena Spann RN - 04/12/2024 6:28 PM EDT S: Patient's son spoke with [facility] nurse regarding leg pain. B: Onset of symptoms/concern today. A: Patient's son reports patient can barely walk and is in severe pain. Reports she has been following up for vascular care with [facility] and would like to come to [facility] vascular office tomorrow. Patient not with caller, unable to fully triage. R: Patient's son advised to take patient to the ED at this time for her concerning symptoms, and per protocol. Patient's son verbalized understanding. Reports he is going to take patient to [facility] ED atthis time. No further needs at this time. Reason for Disposition Unable to walk Protocols used: Leg [id number] documented in this encounterSChildren's Hospital for Rehabilitationaludel[facility] for [facility] chron[facility] ill noteNo assessment information availableKettering Health Work Phone: Evaluation note* Diagnosis Onset Date Resolution Status GERD (gastroesophageal reflux disease) acute Post herpetic neuralgia acut e Uncontrolled hypertension ac [place] [facility] Work Phone: Evaluation note* Diagnosis Abdominal aortic aneurysm (AAA) without rupture, unspecified part (HCC)- Primary documented in this encounter [facility] note* Diagnosis Atherosclerosis of iroquois artery of both lower extremities with intermittent claudication (HCC)- Primary Atherosclerosis of iroquois arteries of the extremities with intermittent claudication Essential hypertension Unspecified essential hypertension Gastroesophageal reflux disease without esophagitis Esophageal reflux Infrarenal abdominal aortic aneurysm (AAA) without rupture (HCC) Centrilobular emphysema (HCC) Other emphysema Aortic occlusion (HCC) documented in this encounter [facility] note* Diagnosis Atherosclerosis of aorta (HCC)- Primary Atherosclerosis of aorta Peripheral vascular disease (HCC) Peripheral vascular disease, unspecified Encounter for screening for cardiovascular disorders Screening for other and unspecified cardiovascular conditions Centrilobular emphysema (HCC) Other emphysema Carotid stenosis, asymptomatic, bilateral Preop testing Preoperative examination, unspecified Encounter for preprocedural cardiovascular examination Pre-operative cardiovascular examination documented in this encounter [facility] for referral (narrative)No reason for referral information availableWOhioHealth Work Phone: Chief Complaint and Reason for Visit Chief Complaint ABD PAIN, N/V Chief Complaint ABD PAIN, N/V abd pain Chief Complaint ABD PAIN, N/V abd pain ED 01/30 GALLBLADDER ABD PAIN Reason for Visit GERD (gastroesophage al reflux disease) Post herpetic neuralgia Uncontrolled hypertension Chief Complaint ABD PAIN, N/V abd pain ED 01/30 GALLBLADDER ABD PAIN SCREENING Reason for Visit GERD (gastroesophage al reflux disease) Post herpetic neuralgia Uncontrolled hypertension Chief Complaint SCREENING Chief Complaint SCREENING EORDER- Right foot pain Chief Complaint Admit Date 8 M FU 2024 12:42p m AAA April 06, 2025 8:4 3am Reason for Visit Admit Date AAA (abdominal aortic aneurysm) without rupture 2024 12:42pm PAD (peripheral artery disease) 2024 12:42pm Advance Directives No Advanced Directives Records Found Advance Directive Response Recorded Date/ Time Living Will Yes January 27, 2022 1 :31am Power of Finance Analyst Yes January 27, 2022 1:31am Advance Directive Response Recorded Date/ Time Name of Medical Power of Finance Analyst WARREN SIMMS January 27, 2022 1:31am Living Will No January 31, 2022 1 :12am Power of Finance Analyst No January 31, 2022 1:12am Advance Directive Response Recorded Date/ Time Living Will No January 31, 2022 1 :12am Power of Finance Analyst No January 31, 2022 1:12am Advance Directive Response Recorded Date/ Time Living Will No January 31, 2022 1 2:12am Power of Finance Analyst No January 31, 2022 12:12am Advance Directive Response Recorded Date/ Time Living Will No January 31, 2022 1 :12am Do you have a Healthcare Power of Finance Analyst? No January 31, 2022 1:12am Family History No Family History Records Found Relationship Condition Age at Onset Recorded Date/T tyler mother Hypertension Unknown Kidney disorder Unknown Disorder of thyroid Unknown Gastric ulcer Unknown Summary Purpose Reason for Referral Specialty Diagnoses / Procedures Referred By Terrence dawson Referred To Contact CT IMAGING Diagnoses Atherosclerosis of aorta (HCC) Peripheral vascular disease (HCC) Carotid stenosis, asymptomatic, bilateral Procedures CTA ABD/PEL LOWER EXTREM WO/W IVCON CTA ABDL AORTA&BI ILIOFEM W/CONTRAST&POSTP Jazlyn Morgan MD [address] [facility] [place] [id number] [id number] Referral ID Status Reason Start Date Expiration Date Visits Requested Visits Authorized [id number] New Request Auto-Generat ed Referral 06/07/2024 07/07/2025 1 1 Specialty Diagnoses / Procedures Referred By Terrence dawson Ref[facility] Diagnoses Encounter for screening for cardiovascular disorders Carotid stenosis, asymptomatic, bilateral Procedures US CAROTID ARTERIES GON[facility]ALES V[facility] LAB DUPLEX SCAN EXTRACRANIAL ART COMPL BI STUDY Jazlyn Morgan MD [address] [place] [address] [facility][Note 3] Vascular [address] [address] Referral ID Status Reason Start Date Expiration Date Visits Requested Visits Authorized [id number] New Request Auto-Generat ed Referral 06/07/2024 06/07/2025 1 1 Specialty Diagnoses / Procedures Referred By Contac t Referred To Contact [facility] [place] Diagnoses Atherosclerosis of aorta (HCC) Peripheral vascular disease (HCC) Encounter for screening for cardiovascular disorders Carotid stenosis, asymptomatic, bilateral Procedures PVR ANK PRESS GONZALES VAS LAB NON-INVAS PHYSIOLOGIC STD EXTREMITY [place] [address] [place] [address] [address] Referral ID Status Reason Start Date Expiration Date Visits Requested Visits Authorized [id number] New Request Auto-Generat ed Referral 06/07/2024 06/07/2025 1 1 Specialty Diagnoses / Procedures Referred By Contac t Referred To [facility] Diagnoses Atherosclerosis of aorta (HCC) Encounter for screening for cardiovascular disorders Centrilobular emphysema (HCC) Carotid stenosis, asymptomatic, bilateral Procedures SPIROMETRY - BASELINE AND POST DILATOR BRNCDILAT RSPSE SPMTRY PRE&POST-BRNCDILAT ADMN Jazlyn Morgan MD [address] [place] [address] Respiratory [place] [address] [place] [id number] Referral ID Status Reason Start Date Expiration Date Visits Requested Visits Authorized [id number] New Request Auto-Generat ed Referral 06/07/2024 07/07/2025 1 1 Specialty Diagnoses / Procedures Referred By Contac t Referred To [facility] [place] Diagnoses Peripheral vascular disease (HCC) Encounter for screening for cardiovascular disorders Centrilobular emphysema (HCC) Carotid stenosis, asymptomatic, bilateral Procedures LUNG VOLUMES Jazlyn Morgan MD [address] [place] [address] [facility] [place] [address] [place] [id number] Referral ID Status Reason Start Date Expiration Date Visits Requested Visits Authorized [id number] New Request Auto-Generat ed Referral 06/07/2024 07/07/2025 1 1 [facility]ty Diagnoses / [facility] Diagnoses Peripheral vascular disease (HCC) Encounter for screening for cardiovascular disorders Centrilobular emphysema (HCC) Carotid stenosis, asymptomatic, bilateral Procedures LUNG DIFFUSION CAPACITY (DLCO) DIFFUSING CAPACITY Jazlyn Morgan MD [address] [place] [address] [facility] [place] [address] [place] [id number] Referral ID Status Reason Start Date Expiration Date Visits Requested Visits Authorized [id number] New Request Auto-Generat ed Referral 06/07/2024 07/07/2025 1 1 Specialty Diagnoses / Procedures Referred By Kaitlinac t Referred To Contact [facility] Diagnoses Encounter for screening for cardiovascular disorders Carotid stenosis, asymptomatic, bilateral Encounter for preprocedural cardiovascular examination Procedures NM CARDIAC PERF STRESS/PHARM MYOCARDIAL SPECT MULTIPLE STUDIES Jazlyn Morgan MD [address] [place] [address] [facility] [address] [place] [id number] Referral ID Status Reason Start Date Expiration Date Visits Requested Visits Authorized [id number] New Request Auto-Generat ed Referral 06/07/2024 07/07/2025 1 1 Specialty Diagnoses / Procedures [facility] To [facility] [place] Diagnoses Atherosclerosis of aorta (HCC) Peripheral vascular disease (HCC) Encounter for screening for cardiovascular disorders Centrilobular emphysema (HCC) Carotid stenosis, asymptomatic, bilateral Procedures ECHO ECHO TTHRC R-T 2D W/WOM-MODE COMPL SPEC&COLR D Jazlyn Morgan MD [address] [place] [address] [facility][Note 3] Vascular [address] [address] Referral ID Status Reason Start Date Expiration Date Visits Requested Visits Authorized [id number] New Request Auto-Generat ed Referral 06/07/2024 06/07/2025 1 1 Additional Source Comments Goals (unrecognized section and content) Goals may be documented in a n alternate sectionGoals may be documented in an alternate sectionGoals may be documented in an alternate sectionGoals may be documented in an alternate sectionGoals may be documented in an alternate sectionGoals may be documented in an alternate sectionGoals may be documented in an alternate sectionGoals may be documented in an alternate sectionGoals may be documented in an alternate section Care Teams (unrecognized sec tion and content) Team Status: Active Member Role Status Dates Dr. Ernie Lane MD Family Provider Active Dr. Mk Renae MD Primary Care Provider Active Team Status: Inactive Member Role Status Dates Dr. kM Renae MD Primary Care Provider, Attending Provider Active Team Status: Inactive Member Role Status Dates Dr. Mk Renae MD Primary Care Provider Active SYMONE Banuelos Attending Provider Active Team Status: Inactive Member Role Status Dates Dr. Mk Renae MD Primary Care Provi freddy, Attending Provider, Referring Provider Active Medical Reviewer Relationship Specialty Start Date End Date Mk Renae MD [address] [place] [address] [address] [place] [address] PCP - General Family Medicine 06/07/24 Medical Reviewer Relationship Specialty Start Date End Date Mk Renae MD [address] [place] [address] [address] [place] [address] PCP - General Family Medicine 06/07/24 Medical Reviewer Relationship Specialty Start Date End Date Mk Renae MD [address] [place] [address] [address] [place] [address] PCP - General Family Medicine 06/07/24 Team Status: Active Member Role/Relationship Status Dates Dr. Mk Renae MD Primary Care Provider Active Team Status: Inactive Member Role/Relationship Status Dates Dr. Mk Renae MD Primary Care Provider Active Start: December 16, 2024 End: December 16, 2024 Dr. Mk Renae MD Attending Provider Active Start: December 16, 2024 End: December 16, 2024 Dr. Mk Renae MD Referring Provider Active Start: December 16, 2024 End: December 16, 2024 Team Status: Inactive Member Role/Relationship Status Dates Dr. Mk Renae MD Primary Care Provider Active Start: 2024 End: 2024 Dr. Mk Renae MD Referring Provider Active Start: 2024 End: 2024 Dr. Tony Andres MD Attending Provider Active S tart: 2024 End: 2024 Team Status: Inactive Member Role/Relationship Status Dates Dr. Mk Renae MD Primary Care Provider Active Start: April 06, 2025 End: April 06, 2025 Dr. Tony Andres MD Attending Provider Active S tart: April 06, 2025 End: April 06, 2025 Dr. Tony Andres MD Referring Provider Active S tart: April 06, 2025 End: April 06, 2025 Team Status: Active Member Role/Relationship Status Dates Dr. Mk Renae MD Primary Care Provider Active Start: April 06, 2025 Dr. Tony Andres MD Attending Provider Active S tart: April 06, 2025 INFORMATION SOURCE (unrecogn ized section and content) DATE CREATED AUTHOR 04/14/2024 [facility] Panorama Education [facility] DATE CREATED AUTHOR AUTHOR'S ORGANIZ ATION 06/08/2024 [facility] DATE CREATED AUTHOR AUTHOR'S ORGANIZ ATION 05/15/2025 [facility] Reason for Visit (unrecogniz ed section and content) Reason Onset Date Comments Leg Pain 04/12/2024 Reason Comments Appointment Reason Comments New Patient Consult Source Comments (unrecognize d section and content) In the event this informatio n is protected by the Federal Confidentiality of Alcohol and Drug Abuse Patient Records regulations: The Federal rules restrict any use of the information to criminally investigate or prosecute any alcohol or drug abuse patient.[facility] the event this information is protected by the Federal Confidentiality of Alcohol and Drug Abuse Patient Records regulations: The Federal rules restrict any use of the information to criminally investigate or prosecute any alcohol or drug abuse patient.[facility] the event this information is protected by the Federal Confidentiality of Alcohol and Drug Abuse Patient Records regulations: The Federal rules restrict any use of the information to criminally investigate or prosecute any alcohol or drug abuse patient.[facility] the event this information is protected by the Federal Confidentiality of Alcohol and Drug Abuse Patient Records regulations: The Federal rules restrict any use of the information to criminally investigate or prosecute any alcohol or drug abuse patient.[facility] FOR RECORDS PERTAINING TO PATIENTS WHO ARE OR HAVE BEEN ENROLLED IN A CHEMICAL DEPENDENCY/SUBSTANCEABUSE PROGRAM, SOME INFORMATION MAY BE OMITTED. This clinical summary was aggregated from multiple sources. Caution should be exercised in using it in the provision of clinical care. This summary normalizes information from multiple sources, and as a consequence, information in this document may materially change the coding, format and clinical context of patient data. In addition, data may be omitted in some cases. CLINICAL DECISIONS SHOULD BE BASED ON THE PRIMARY CLINICAL RECORDS. [employer] [facility]. provides no warranty or guarantee of the accuracy or completeness of information in this document.
== END | disposition home or self-care (01) ==
LOC: MTRAD 13:57
PROVIDERS: PCP Family Medicine; Referring Provider Family Medicine; Visit Provider Family Medicine
DX: M25.552 Pain in left hip (principal)
CPT/HCPCS: 73502

== ENCOUNTER → 2025-05-18 | Outpatient (CLI) | payer MEDICARE, BC, SELFPAY ==
--- NOTE | 2025-05-18 10:15 | BI_ITS ---
EXAM: SCRN MAMM (CAD)W/MELISSA BILAT DATE: 05/18/2025 CLINICAL HISTORY: F, Age 69 y/o , SCREENING Aunt with breast cancer. TECHNIQUE: Procedure Code: [id number] Modality: MG Procedure: SCRN MAMM (CAD)W/MELISSA BILAT COMPARISON: Prior exam(s) dated May 17, 2024. Prior right stereotactic breast biopsy.. FINDINGS: TISSUE DENSITY: There are scattered areas of fibroglandular density. Bilateral Breast Mammographic Findings: No significant masses, calcifications or other abnormalities are identified. No suspicious masses, areas of developing architectural distortion, or suspicious calcifications. There has been no significant interval change. BI/SCRN MAMM (CAD)W/MELISSA BILAT IMPRESSION: Stable bilateral screening mammogram. OVERALL FINAL ASSESSMENT BI-RADS 1: NEGATIVE. RECOMMENDATION: Routine annual follow-up in 1 Year A letter with findings and recommendations will be mailed to the patient. Reading Location: [place] [id number]
== END | disposition home or self-care (01) ==
LOC: OPBI 10:04
PROVIDERS: PCP Family Medicine; Referring Provider Family Medicine; Visit Provider Family Medicine
DX: Z12.31 Encounter for screening mammogram for malignant neoplasm of breast (principal)
CPT/HCPCS: 77063; 77067

== ENCOUNTER → 2025-06-13 | Outpatient (CLI) | payer MEDICARE, BC, SELFPAY ==
[2025-06-13 15:46] LABS: AST(SGOT) 37 U/L (<=31); Alanine Aminotransfer ALT/SGPT 22 U/L (<=34); Albumin, Serum 4.1 g/dL (3.4-4.8); Alkaline Phosphatase 108 U/L (35-104); Anion Gap 11 (5-15); BUN 8 mg/dL (4-19); BUN/Creat Ratio 9.8 RATIO (10-20); Calcium,Total 9.4 mg/dL (7.6-11.0); Carbon Dioxide 25.3 mmol/L (21.0-32.0); Chloride 95 mmol/L (98-108); Cholesterol 190 mg/dL (<=200); Globulin 3.2 g/dL (2.2-4.2); Glucose 92 mg/dL (70-99); Low Density Lipoprotein Calc. 103 mg/dL; Potassium 4.3 mmol/L (3.3-5.1); Triglycerides 114 mg/dL; Very Low Density Lipoprotein 23 mg/dL (5-40); cholesterol:hdl ratio screen 2.95
== END | disposition home or self-care (01) ==
LOC: MTLAB 11:18
PROVIDERS: PCP Family Medicine; Referring Provider Family Medicine; Visit Provider Family Medicine
DX: I10 Essential (primary) hypertension (principal)
CPT/HCPCS: 36415; 80053; 80061